=== PATIENT | male | born 1970 | race Caucasian/White ===

== ENCOUNTER 2019-08-05 18:00 | Emergency (ER) | payer OTHER ==
[2019-08-05 18:11] VITALS: BP 125/65
[2019-08-05] MEDS ORDERED: ALBUTEROL 1 PUFF INH STA (18:25)
--- NOTE | 2019-08-05 18:27 | ED Physician Documentation ---
History of Present Illness - Stated complaint Stated Complaint: FEVER, SOA - Chief complaint Chief Complaint: Resp - History obtained from History obtained from: Patient - History of Present Illness Timing: How many days ago (3) Pain level max: 0 Pain level now: 0 - Additonal information Additional information: 49-year-old male presents to the emergency department stating that he had a fever of 101 degrees on Tuesday. States he has had a mild dry cough. States he feels like he is having a harder time breathing. Smokes a pack per day. Has nasal congestion and rhinorrhea as well. No sore throat. Nothing makes it better or worse. He has not taken anything for this. Review of Systems Ten Systems: 10 systems reviewed and negative Constitutional: reports: Fever. denies: Chills Ears: denies: Ear pain Nose: reports: Rhinorrhea / runny nose, Congestion Throat: denies: Sore throat Cardiac: denies: Chest pain / pressure Respiratory: reports: Dyspnea, Cough, Wheezing GI: denies: Nausea, Vomiting, Diarrhea Skin: denies: Rash Musculoskeletal: denies: Neck pain, Back pain Neurologic: denies: Headache PD PAST MEDICAL HISTORY - Past Medical History Past Medical History: Yes Cardiovascular: Hypertension, High cholesterol Respiratory: None Neuro: None Endocrine/Autoimmune: None GI: None : None HEENT: None Psych: None Musculoskeletal: None Derm: None - Present Medications Home Medications: Ambulatory Orders Medication Instructions Recorded Confirmed Albuterol Sulf [Ventolin Hfa 1 - 2 puffs INH Q4HR PRN #1 inhaler 08/05/19 Inhaler] - Allergies Allergies/Adverse Reactions: Allergies Allergy/AdvReac Type Severity Reaction Status Date / Time Penicillins Allergy Unknown Verified 08/05/19 18:10 - Social History Does the pt smoke?: Yes Smoking Status: Current every day smoker - Immunizations Immunizations are current?: No - POLST Patient has POLST: No PD ED PE NORMAL - Vitals Vital signs reviewed: Yes - General General: Alert and oriented X 3, No acute distress, Well developed/nourished - HEENT HEENT: Moist mucous membranes - Neck Neck: Supple, no meningeal sign - Cardiac Cardiac: RRR - Respiratory Respiratory: No respiratory distress, Other (Rhonchi and wheezing bilaterally) - Abdomen Abdomen: Soft, Non tender, Non distended - Derm Derm: Warm and dry, No rash - Extremities Extremities: No edema, No calf tenderness / cord - Neuro Neuro: Alert and oriented X 3 - Psych Psych: Normal mood, Normal affect Results - Vitals Vitals: Vital Signs - 24 hr 08/05/19 18:06 Temperature 36.3 C L Heart Rate 100 Respiratory 18 Rate Blood Pressure 125/65 O2 Saturation 98 Oxygen O2 Source Room air - Rads (name of study) Chest x-ray Radiology: Prelim report reviewed, EMP read contemporaneously, See rad report (No acute disease) PD MEDICAL DECISION MAKING - ED course Complexity details: reviewed results, re-evaluated patient, considered differential, d/w patient ED course: Patient feels much better after albuterol. He is well-appearing, nontoxic. Afebrile. No hypoxia. No respiratory distress. Will prescribe albuterol for home. Coronavirus test was sent. Patient counseled regarding signs and symptoms for which I believe and urgent re-evaluation would be necessary. Patient with good understanding of and agreement to plan and is comfortable going home at this time This document was made in part using voice recognition software. While efforts are made to proofread this document, sound alike and grammatical errors may occur. Departure - Departure Disposition: 01 Home, Self Care Clinical Impression: Viral upper respiratory infection Condition: Good Instructions: ED Viral Syndrome Follow-Up: Your,doctor in 1 week [Other] Prescriptions: Albuterol Sulf [Ventolin Hfa Inhaler] 1 - 2 puffs INH Q4HR PRN #1 inhaler PRN Reason: Shortness Of Air/Wheezing Comments: Your x-ray does not show any acute abnormalities. Use the inhaler as needed at home. Return if you worsen. You were tested for coronavirus and this test should be back tomorrow or the next day. Do not return to work or school until your symptoms have subsided for at least 24 hours. cdc.gov/coronavirus/2019-ncov/community/tvwnmwuh-eaoqfhnw-gafauiqr.html Employers should not require a positive COVID-19 test result or a healthcare providers note for employees who are sick to validate their illness, qualify for sick leave, or to return to work. Healthcare provider offices and medical facilities may be extremely busy and not able to provide such documentation in a timely manner. Discharge Date/Time: 08/05/19 19:53
--- NOTE | 2019-08-05 18:56 | XRAY Report ---
Reason: cough Procedure Date: 08/05/2019 Accession Number: [id number] / [id number] Procedure: XR - Chest 1 View X-Ray CPT Code: 94251 Final Report FULL RESULT: EXAM: CHEST RADIOGRAPHY EXAM DATE: 08/05/2019 06:47 PM. CLINICAL HISTORY: Cough. COMPARISON: None. TECHNIQUE: 1 portable view. FINDINGS: Lungs/Pleura: No focal opacities evident. No pleural effusion. No pneumothorax. Mediastinum: Within exam limitations, the cardiomediastinal contour is normal. Other: None. IMPRESSION: Normal single view chest. RADIA
== END 2019-08-05 19:53 | disposition home or self-care (01) ==
LOC: ED 18:00
DX: J06.9 Acute upper respiratory infection, unspecified (principal); F17.200 Nicotine dependence, unspecified, uncomplicated; I10 Essential (primary) hypertension
CPT/HCPCS: 71045; 81599; 94640; 94664; 99282; 99283

== ENCOUNTER 2019-08-21 14:29 | Inpatient (IN) | payer OTHER ==
[2019-08-21 15:02] LABS: BASOPHILS % (AUTO) 0.7 %; EOSINOPHILS # (AUTO) 0.1 10^3/uL (0.0-0.7); HGB - HEMOGLOBIN 13.9 g/dL (14.0-18.0); LYMPHOCYTES # (AUTO) 1.7 10^3/uL (1.5-3.5); LYMPHOCYTES % (AUTO) 27.1 %; MEAN CORPUSCULAR HEMOGLOBIN 37.1 pg (27.0-31.0); MEAN CORPUSCULAR VOLUME 102.9 fL (80.0-94.0); MEAN PLATELET VOLUME 9.5 fL (7.4-11.4); MONOCYTES # (AUTO) 0.5 10^3/uL (0.0-1.0); MONOCYTES % (AUTO) 8.5 %; NEUTROPHILS # (AUTO) 3.8 10^3/uL (1.5-6.6); NEUTROPHILS % (AUTO) 61.2 %; PLT - PLATELET COUNT 141 10^3/uL (130-450); RED BLOOD COUNT 3.75 10^6/uL (4.70-6.10); RED CELL DISTRIBUTION WIDTH 13.1 % (12.0-15.0); WHITE BLOOD COUNT 6.1 x10^3/uL (4.8-10.8)
[2019-08-21] MEDS ORDERED: IOVERSOL 320 100 ML VIAL IVP ONE ×2 (15:12→15:58)
[2019-08-21 15:17] LABS: ALBUMIN 3.9 g/dL (3.2-5.5); ALBUMIN/GLOBULIN RATIO 1.1 (1.0-2.2); BILIRUBIN,TOTAL 1.3 mg/dL (0.2-1.0); CALCIUM 9.4 mg/dL (8.5-10.3); CREATININE 0.7 mg/dL (0.6-1.2); TOTAL PROTEIN 7.4 g/dL (6.7-8.2)
--- NOTE | 2019-08-21 15:54 | ED Physician Documentation ---
PD HPI OPHTHO - Stated complaint Stated Complaint: VISION LOSS LT EYE - Chief complaint Chief Complaint: Heent - History obtained from History obtained from: Patient - History of Present Illness Timing - onset: Enter time (1229), Today Timing - duration: Minutes Timing - details: Abrupt onset, Still present Location: Left Quality / character: Other (sudden onset painless vision loss.). 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 He relates he was not able to see normally out of that eye. He did not have any pain associated with this he did not have anything in his eye and he did not have any trauma to his eye. He try to continue working but found that this did not improve. He has now come to the emergency department for evaluation of acute monocular vision loss in the left eye that is painless and persistent. He has had some vision to the central portion of his eyesight that is limited. Review of Systems Constitutional: reports: Fever (resolved), Chills, Myalgias, Fatigue Eyes: reports: Loss of vision. denies: Discharge, Irritation Ears: denies: Ear pain Nose: denies: Rhinorrhea / runny nose, Congestion Throat: denies: Sore throat Cardiac: denies: Chest pain / pressure, Palpitations Respiratory: denies: Dyspnea, Cough GI: denies: Abdominal Pain, Nausea, Vomiting : denies: Dysuria, Frequency Skin: denies: Rash, Lesions, Abrasion (s) Musculoskeletal: denies: Neck pain, Back pain Neurologic: denies: Generalized weakness, Focal weakness, Numbness PD PAST MEDICAL HISTORY - Past Medical History Past Medical History: Yes Cardiovascular: Hypertension, High cholesterol Respiratory: None Neuro: None Endocrine/Autoimmune: None GI: None : None HEENT: None Psych: None Musculoskeletal: None Derm: None - Present Medications Home Medications: Ambulatory Orders Medication Instructions Recorded Confirmed Albuterol Sulf [Ventolin Hfa 1 - 2 puffs INH Q4HR PRN #1 inhaler 08/05/19 Inhaler] - Allergies Allergies/Adverse Reactions: Allergies Allergy/AdvReac Type Severity Reaction Status Date / Time Penicillins Allergy Unknown Verified 08/05/19 18:10 - Social History Does the pt smoke?: Yes Smoking Status: Current every day smoker - Immunizations Immunizations are current?: No - POLST Patient has POLST: No PD ED PE NORMAL - Vitals Vital signs reviewed: Yes (hypertensive ) - General General: Alert and oriented X 3, No acute distress, Well developed/nourished - HEENT HEENT: Atraumatic, EOMI, Other (The pupils are equal they are reactive to light the left pupil is reactive minimally to direct light the right eye is reactive briskly to light and the left eye constricts correspondingly.) - Neck Neck: Supple, no meningeal sign, No bony TTP - Cardiac Cardiac: RRR, No murmur - Respiratory Respiratory: No respiratory distress, Clear bilaterally - Abdomen Abdomen: Soft, Non tender - Back Back: No CVA TTP, No spinal TTP - Derm Derm: Normal color, Warm and dry, No rash - Extremities Extremities: No deformity, No edema, No calf tenderness / cord - Neuro Neuro: Alert and oriented X 3, No motor deficit, No sensory deficit, Normal speech Eye Opening: Spontaneous Motor: Obeys Commands Verbal: Oriented GCS Score: 15 - Psych Psych: Normal mood, Normal affect Results - Vitals Vitals: Vital Signs - 24 hr 08/21/19 08/21/19 08/21/19 14:31 14:44 15:05 Temperature 36.5 C 36.5 C Heart Rate 98 98 95 Respiratory 16 16 16 Rate Blood Pressure 159/112 H 159/112 H 142/112 H O2 Saturation 98 98 97 08/21/19 08/21/19 08/21/19 15:30 16:00 16:30 Temperature Heart Rate 93 92 88 Respiratory 16 21 16 Rate Blood Pressure 140/96 H 143/89 H 150/100 H O2 Saturation 98 96 98 08/21/19 08/21/19 08/21/19 17:00 17:30 18:00 Temperature Heart Rate 96 96 110 H Respiratory 16 16 16 Rate Blood Pressure 140/100 H 140/90 H 150/110 H O2 Saturation 98 98 98 08/21/19 08/21/19 18:22 18:30 Temperature Heart Rate 120 H Respiratory 16 Rate Blood Pressure 134/96 H 134/96 H O2 Saturation 97 Oxygen O2 Source Room air - EKG (time done) 1457 Rate: Rate (enter#) (101) Rhythm: Sinus tachycardia [place]: LAD Compare to prior EKG: Old EKG unavailable Computer interpretation: Agree with computer - Labs Labs: Laboratory Tests 08/21/19 08/21/19 08/21/19 14:55 14:55 14:55 WBC 6.1 RBC 3.75 L Hgb 13.9 L Hct 38.6 L MCV 102.9 H MCH 37.1 H MCHC 36.0 RDW 13.1 Plt Count 141 MPV 9.5 Neut # (Auto) 3.8 Lymph # (Auto) 1.7 [place] # (Auto) 0.5 Eos # (Auto) 0.1 Baso # (Auto) 0.0 Absolute Nucleated RBC 0.00 Nucleated RBC % 0.0 ESR 36 H Sodium 134 L Potassium 2.9 L Chloride 97 L Carbon Dioxide 25 Anion Gap 12.0 BUN 8 Creatinine 0.7 Estimated GFR (MDRD) 119 Glucose 117 H Calcium 9.4 Total Bilirubin 1.3 H AST 55 H ALT 42 Alkaline Phosphatase 71 C-Reactive Protein Total Protein 7.4 Albumin 3.9 Globulin 3.5 Albumin/Globulin Ratio 1.1 Lipase 41 Urine Color Urine Clarity Urine pH Ur Specific [place] Urine Protein Urine Glucose (UA) Urine Ketones Urine Occult Blood Urine Nitrite Urine Bilirubin Urine Urobilinogen Ur Leukocyte Esterase Ur Microscopic Review Urine Culture Comments Urine Opiates Screen Ur Oxycodone Screen Urine Methadone Screen Ur Propoxyphene Screen Ur Barbiturates Screen Ur Tricyclics Screen Ur Phencyclidine Scrn Ur Amphetamine Screen U Methamphetamines Scrn U Benzodiazepines Scrn Urine Cocaine Screen U Cannabinoids Screen 08/21/19 08/21/19 14:55 17:53 WBC RBC Hgb Hct MCV MCH MCHC RDW Plt Count MPV Neut # (Auto) Lymph # (Auto) [place] # (Auto) Eos # (Auto) Baso # (Auto) Absolute Nucleated RBC Nucleated RBC % ESR Sodium Potassium Chloride Carbon Dioxide Anion Gap BUN Creatinine Estimated GFR (MDRD) Glucose Calcium Total Bilirubin AST ALT Alkaline Phosphatase C-Reactive Protein 2.0 H Total Protein Albumin Globulin Albumin/Globulin Ratio Lipase Urine Color YELLOW Urine Clarity CLEAR Urine pH 6.0 Ur Specific [place] 1.015 Urine Protein TRACE Urine Glucose (UA) NEGATIVE Urine Ketones NEGATIVE Urine Occult Blood NEGATIVE Urine Nitrite NEGATIVE Urine Bilirubin NEGATIVE Urine Urobilinogen 0.2 (NORMAL) Ur Leukocyte Esterase NEGATIVE Ur Microscopic Review NOT INDICATED Urine Culture Comments NOT INDICATED Urine Opiates Screen NEGATIVE Ur Oxycodone Screen NEGATIVE Urine Methadone Screen NEGATIVE Ur Propoxyphene Screen NEGATIVE Ur Barbiturates Screen NEGATIVE Ur Tricyclics Screen NEGATIVE Ur Phencyclidine Scrn NEGATIVE Ur Amphetamine Screen NEGATIVE U Methamphetamines Scrn NEGATIVE U Benzodiazepines Scrn NEGATIVE Urine Cocaine Screen NEGATIVE U Cannabinoids Screen NEGATIVE - Rads (name of study) Neck CTA Radiology: Prelim report reviewed (Impression: CT angiogram neck: 1. There is a 50% stenosis in the proximal cervical ICA on the left. There is less than 50% stenosis involving the proximal cervical ICA on the right. Visualized cervical vertebral arteries demonstrate no significant stenosis. Other degenerative changes are seen in the spine, greatest in the cervical spine at C6-7 where there is bilateral foraminal stenosis.), EMP read indepedently, See rad report CTA HEAD Radiology: Prelim report reviewed (Impression: CT scan head: 1. Normal CT scan of the head. CT angiogram head: 1. No significant intracranial stenosis is present. 2. No saccular aneurysm.), EMP read indepedently, See rad report Procedures - Bedside sono Bedside sono by EMP: With use of bedside ultrasound the left eye is imaged there is no evidence of retinal detachment. PD MEDICAL DECISION MAKING - ED course Complexity details: reviewed old records, reviewed results, re-evaluated patient, considered differential, d/w patient, d/w interventional sale consultant (Dr. Howe opthamology window of opportunity is first 90 minutes. After this stroke work up is indicated and visual loss is permanent. ) ED course: 49-year-old male with sudden painless visual loss in the right eye appears to gardner ve central retinal artery occlusion. He does not have any evidence of retinal detachment on bedside ultrasound examination. He has minimal atherosclerotic disease in the carotid arteries. He is at risk for stroke and further embolization and complete stroke work-up is indicated. Departure - Departure Disposition: ED Place in Observation Clinical Impression: CRAO (central retinal artery occlusion) Qualifiers: Laterality: left Qualified Code(s): H34.12 - Central retinal artery occlusion, left eye Condition: Stable Discharge Date/Time: 08/21/19 19:44
--- NOTE | 2019-08-21 16:46 | CT Report ---
Reason: monoocular vision loss Procedure Date: 08/21/2019 Accession Number: [id number] / [id number] Procedure: CT - ANGIO NECK W CPT Code: Final Report FULL RESULT: EXAM: CT ANGIOGRAM HEAD AND NECK. EXAM DATE: 08/21/2019 03:22 PM. CLINICAL HISTORY: Monocular vision loss. COMPARISON: ANGIO HEAD W/WO 08/21/2019 3:10 PM. TECHNIQUE: Routine axial helical CTA imaging was performed from the aortic arch through the [place]. reconstructions: Routine multiplanar 3D MIP reconstructions. IV contrast: ISOVUE 370. NASCET Criteria are used for stenosis measurements. In accordance with CT protocol optimization, one or more of the following dose reduction techniques were utilized for this exam: automated exposure control, adjustment of mA and/or KV based on patient size, or use of iterative reconstructive technique. FINDINGS: CT ANGIOGRAM EXTRACRANIAL CIRCULATION: Atherosclerotic plaque is seen in the transverse thoracic aorta in the region of the origin of the left CCA and left subclavian artery. No significant great vessel origin stenosis is present. Right Carotid: Mild atherosclerotic plaque is seen in the CCA and proximal cervical ICA without significant cervical ICA narrowing present. Left Carotid: Mild to moderate CC atherosclerotic plaque is seen. Moderate atherosclerotic plaque is seen in the proximal cervical ICA. There is up to 50% stenosis of the proximal cervical ICA. There appears to be some degree of ulcerated atherosclerotic plaque. Vertebrals: Artifact limits assessment of the proximal vertebral arteries bilaterally. The cervical vertebral artery is patent bilaterally. The left vertebral artery is dominant. CT ANGIOGRAM INTRACRANIAL CIRCULATION: The reader is referred to the CT angiogram of the head performed in conjunction with the CT of the neck today and dictated under separate cover Other: No mass is present in the nasopharynx. No mass is present in either parotid gland or submandibular gland. No bulky lymphadenopathy is seen in the neck or visualized upper mediastinum. No mass is seen in the floor of mouth. No subglottic stenosis is present. No suspicious spiculated mass is seen in either lung apex. Degenerative disk disease and osteophyte formation are seen at scattered levels in the spine, greatest in the cervical spine at C6-C7. There is bilateral foraminal stenosis at C6-C7 IMPRESSION: CT ANGIOGRAM NECK: 1. There is a 50% stenosis in the proximal cervical ICA on the left. 2. There is a less than 50% stenosis involving the proximal cervical ICA on the right. 3. Visualized cervical vertebral arteries demonstrate no significant stenosis. OTHER: 1. Degenerative change is seen in the spine, greatest in the cervical spine at C6-C7 where there is bilateral foraminal stenosis. RADIA
[2019-08-21 18:06] LABS: MUDS CUTOFF CONCENTRATIONS CUTOFF CONC BELOW:
[2019-08-21 18:08] LABS: BILIRUBIN,URINE NEGATIVE (NEGATIVE); GLUCOSE, URINE (UA) NEGATIVE (NEGATIVE); KETONES,URINE (UA) NEGATIVE (NEGATIVE); LEUKOCYTE ESTERASE, URINE NEGATIVE (NEGATIVE); NITRITE,URINE NEGATIVE (NEGATIVE); OCCULT BLOOD,URINE NEGATIVE (NEGATIVE); PROTEIN,URINE TRACE mg/dL (NEGATIVE); UROBILINOGEN,URINE 0.2 (NORMAL) E.U./dL (NORMAL)
--- NOTE | 2019-08-21 18:21 | CT Report ---
Reason: L monoocular vision loss painless Procedure Date: 08/21/2019 Accession Number: [id number] / [id number] Procedure: CT - ANGIO HEAD W/WO CPT Code: Final Report FULL RESULT: EXAM: CT ANGIOGRAM HEAD CT SCAN HEAD WITHOUT AND WITH CONTRAST. EXAM DATE: 08/21/2019 03:22 PM. CLINICAL HISTORY: Left monocular vision loss painless. COMPARISON: CT angiogram neck from today. TECHNIQUE: Routine axial helical CTA imaging was performed through the [place]. Routine axial CT imaging of the head was performed prior to and following contrast administration. Reconstructions: Routine multiplanar 3D MIP reconstructions. IV contrast: 80 cc OPTIRAY 320. NASCET Criteria are used for stenosis measurements. In accordance with CT protocol optimization, one or more of the following dose reduction techniques were utilized for this exam: automated exposure control, adjustment of mA and/or KV based on patient size, or use of iterative reconstructive technique. FINDINGS: CT SCAN HEAD: Age-appropriate prominence of the ventricles and sulci is noted. No extra-axial fluid collection is present. No enhancing mass is identified. Watts-white matter differentiation is preserved. No intracranial hemorrhage is present. There is no extra-axial fluid collection. The calvarium is intact. Mastoid air cells are well aerated. CT ANGIOGRAM INTRACRANIAL CIRCULATION: No filling defect, high-grade stenosis, or occlusion is present in the proximal aspect of the major intracranial vessels. There is a posterior communicating artery bilaterally with a hypoplastic P1 segment to each RESIDENTIAL AIDE. No saccular outpouching of contrast is present to suggest an aneurysm. Expected enhancement is present in the major dural venous sinuses. Atherosclerotic plaque is seen in the cavernous ICA bilaterally without significant narrowing present. Other: No mass is present in either orbit. IMPRESSION: CT SCAN HEAD: 1. Normal CT scan of the head. CT ANGIOGRAM HEAD: 1. No significant intracranial stenosis is present. 2. No saccular aneurysm. RADIA
[2019-08-21 18:24] LABS: AMPHETAMINE SCREEN,URINE NEGATIVE (NEGATIVE); BENZODIAZEPINES SCREEN, URINE NEGATIVE (NEGATIVE); CLARITY,URINE CLEAR (CLEAR); COCAINE SCREEN URINE NEGATIVE (NEGATIVE); METHADONE SCREEN, URINE NEGATIVE (NEGATIVE); METHAMPHETAMINES SCREEN, URINE NEGATIVE (NEGATIVE); OPIATE SCREEN, URINE NEGATIVE (NEGATIVE); OXYCODONE SCREEN, URINE NEGATIVE (NEGATIVE); PROPOXYPHENE SCREEN, URINE NEGATIVE (NEGATIVE); TRICYCLIC ANTIDEPRESSANT,URINE NEGATIVE (NEGATIVE)
[2019-08-21] MEDS ORDERED: SODIUM CHLORIDE FLUSH 0.9% 10 ML SYRINGE IVP PRN (19:14)
--- NOTE | 2019-08-21 19:26 | HISTORY & PHYSICAL EXAMINATION ---
Chief Complaint - Chief Complaint Chief Complaint: left eye vision loss History of Present Illness - Admitted From Admitted From:: [facility] ED - History Obtained From Records Reviewed: yes History obtained from: patient - History of Present Illness HPI Comment/Other: Patient is a 49-year-old male who presented to the ED with complaint of sudden left vision loss. This happened around 1:30 PM today Aug 21 2019. He was at work at the time of onset. He operates [employer]. He denied dizziness, lightheadedness or headaches. He denies any previous history of this symptoms. Currently he denies chest pain, dyspnea, abdominal pain, nausea, vomiting, fever or chills. He denies weakness in any of his extremities. He reports a history of difficulty breathing, coughing, body aches and questionable fever 2 weeks ago. He was tested for COVID 19 on 08/05/2019 at [facility] ED which was negative. He states that his symptoms lasted for a week. Work-up in the ED so far has included CT of the brain without contrast. This is unremarkable. However the patient's symptom of left I vision loss persist. As a result he is being admitted for further work-up. History - Past Medical History Cardiovascular: reports: Hypertension, High cholesterol Respiratory: reports: None Neuro: reports: None Endocrine/Autoimmune: reports: None GI: reports: None : reports: None HEENT: reports: None Psych: reports: None Musculoskeletal: reports: None Derm: reports: None MRSA Hx?: No - Past Surgical History Ortho: reports: Other (right knee meniscal repair X3) - Family & Social History Family History Comment/Other: Patient denied any significant family history Social History Notes: Patient smokes 1 pack/day of cigarettes. He has been smoking for 25+ years. He drinks alcohol occasionally. He denies any illicit drug use. Patient lives alone. - POLST Patient has POLST: No POLST Status: Full Code Meds/Allgy - Home Medications Home Medications: Ambulatory Orders Medication Instructions Recorded Confirmed Albuterol Sulf [Ventolin Hfa 1 - 2 puffs INH Q4HR PRN #1 inhaler 08/05/19 Inhaler] - Allergies Allergies/Adverse Reactions: Allergies Allergy/AdvReac Type Severity Reaction Status Date / Time Penicillins Allergy Unknown Verified 08/05/19 18:10 Review of Systems - Constitutional Constitutional: denies: Fatigue, Fever, Chills, Malaise, Weakness - Eyes Eyes: reports: Vision loss (left eye). denies: Pain, Blurred vision - Ears, Nose & Throat Ears, Nose & Throat: denies: Vertigo, Sore throat - Cardiovascular Cariovascular: denies: Irregular heart rate, Palpitations, Chest pain, Edema, Lightheadedness, Syncope - Respiratory Respiratory: denies: Cough, Sputum production, Wheezing, SOB at rest, SOB with exertion - Gastrointestinal Gastrointestinal: denies: Abdominal pain, Abdominal distention, Constipation, Diarrhea, Nausea, Vomiting - Genitourinary Genitourinary: denies: Dysuria, Frequency, Urgency, Hematuria - Musculoskeletal Musculoskeletal: denies: Muscle pain, Back pain, Muscle aches, Stiffness - Integumentary Integumentary: denies: Rash, Pruritis, Lesions - Neurological Neurological: denies: General weakness, Headache, Dizziness - Psychiatric Psychiatric: denies: Depression, Anxiety - Endocrine Endocrine: denies: Polyuria, Polydypsia - Hematologic/Lymphatic Hematologic/Lymphatic: denies: Anemia, Bruising Prior Level of Functionality: Patient is independent of activities of daily living. Exam - Vital Signs Vital Signs: Vital Signs x48h Temp Pulse Resp BP Pulse Ox 08/21/19 19:00 98 12 141/91 H 98 08/21/19 18:30 120 H 16 134/96 H 97 08/21/19 18:22 134/96 H 08/21/19 18:00 110 H 16 150/110 H 98 08/21/19 17:30 96 16 140/90 H 98 08/21/19 17:00 96 16 140/100 H 98 08/21/19 16:30 88 16 150/100 H 98 08/21/19 16:00 92 21 143/89 H 96 08/21/19 15:30 93 16 140/96 H 98 08/21/19 15:05 95 16 142/112 H 97 08/21/19 14:44 36.5 C 98 16 159/112 H 98 08/21/19 14:31 36.5 C 98 16 159/112 H 98 - Physical Exam General Appearance: positive: No acute distress, Alert Eyes Bilateral: positive: PERRL, EOMI ENT: positive: Pharynx nml, No signs of dehydration Neck: positive: No JVD, Trachea midline Respiratory: positive: Chest non-tender, No respiratory distress, Breath sounds nml. negative: Wheezes, Rales, Rhonchi Cardiovascular: positive: Regular rate & rhythm, No murmur Abdomen: positive: Non-tender, No organomegaly, Nml bowel sounds, No distention. negative: Guarding, Rebound Back: positive: Nml inspection Skin: positive: Color nml, No rash, Warm, Dry Extremities: positive: Non-tender, Full ROM, No pedal edema Neurologic/Psychiatric: positive: Oriented x3, Mood/affect nml, Other (left vision loss) Conclusion/Plan - Problem List (1) Sudden visual loss of left eye Conclusion/Plan: CVA suspected. In light of recent viral symptoms cannot rule out COVID-19 as possible cont ributing factor. COVID-19 testing pending MRI of the brain ordered. 2D echo ordered. We will check lipid panel and hemoglobin A1c in the a.m. Patient given aspirin. We will allow permissive hypertension. (2) Hypertension Conclusion/Plan: Will allow permissive hypertension for now in light of suspected CVA Will treat if systolic blood pressure greater than 180 (3) Hypokalemia Conclusion/Plan: Will replace and recheck in the a.m. We will also check magnesium level and replace accordingly - Lab Results Fish Bones: 08/21/19 14:55 08/21/19 19:29 Core Measures - Anticipated LOS I expect patient to be DC'd or transferred within 96 hours.: Yes - DVT/VTE - Prophylaxis VTE/DVT Device ordered at admit?: Yes
[2019-08-21 19:47] LABS: ALBUMIN 4.3 g/dL (3.2-5.5); ALBUMIN/GLOBULIN RATIO 1.1 (1.0-2.2); BILIRUBIN,TOTAL 1.6 mg/dL (0.2-1.0); CALCIUM 9.6 mg/dL (8.5-10.3); CREATININE 0.7 mg/dL (0.6-1.2); TOTAL PROTEIN 8.1 g/dL (6.7-8.2)
[2019-08-21] MEDS: SODIUM CHLORIDE 0.9% 1,000 ML IV SCH (20:06)
[2019-08-21] MEDS ORDERED: POTASSIUM CHLORIDE 20 MEQ TABLET PO STA (23:49)
[2019-08-22] MEDS: SODIUM CHLORIDE FLUSH 0.9% 10 ML SYRINGE IVP SCH ×3 (00:29→17:00)
--- NOTE | 2019-08-22 02:41 | Ultrasound Report ---
Reason: CVA work up. left eye vision loss Procedure Date: 08/21/2019 Accession Number: [id number] / [id number] Procedure: US - Carotid Doppler Complete CPT Code: Final Report FULL RESULT: EXAM: BILATERAL CAROTID AND VERTEBRAL ARTERY DUPLEX DOPPLER ULTRASOUND: EXAM DATE: 08/21/2019 11:38 PM CLINICAL HISTORY: CVA workup. Left eye vision loss. COMPARISON: None. TECHNIQUE: Grayscale imaging, color Doppler, and duplex spectral Doppler were used to evaluate the carotid and vertebral arteries bilaterally. Static images were obtained. FINDINGS: Left greater than right calcified plaquing, moderate on the left and mild on the right. Normal antegrade flow is present in bilateral vertebral arteries. VELOCITIES (cm/s): Right CCA mid: PSV 113 cm/s CCA dist: PSV 62 cm/s ICA prox: PSV 65 cm/s, EDV 28 cm/s ICA mid: PSV 72 cm/s, EDV 29 cm/s ICA dist: PSV 84 cm/s, EDV 37 cm/s ECA: PSV 81 cm/s Vert: PSV 41 cm/s ICA/CCA: 0.74 Left CCA mid: PSV 75 cm/s CCA dist: PSV 77 cm/s ICA prox: PSV 99 cm/s, EDV 50 cm/s ICA mid: PSV 90 cm/s, EDV 42 cm/s ICA dist: PSV 51 cm/s, EDV 25 cm/s ECA: PSV 86 cm/s Vert: PSV 50 cm/s ICA/CCA: 1.29 ICA diameter stenosis: Right: <50% by velocity and <70% by NASCET criteria. Left: <50% by velocity and <70% by NASCET criteria. IMPRESSION: 1. Moderate left and mild right calcified carotid artery plaquing. 2. In the right carotid artery there are no elevated carotid artery velocities to suggest hemodynamically significant stenosis. 3. In the left carotid artery there are no elevated carotid artery velocities to suggest hemodynamically significant stenosis. 4. Normal antegrade flow is present in bilateral vertebral arteries. General Recommendations: Stenosis =50% ICA - Follow-up ultrasound 6-12 months Stenosis <50% ICA - High Risk Patient with plaque - Follow-up ultrasound 1-2 years Normal Study but High Risk Patient - Follow-up ultrasound 3-5 years Management recommendations and diagnostic criteria are based on current IAC endorsed standards in Carotid Artery Stenosis: Grayscale and Doppler Ultrasound Diagnosis. Validated velocity measurements with angiographic measurements and velocity criteria are extrapolated from diameter data as defined by the Society of Radiologists in Ultrasound Consensus Conference Radiology 2003; 229;340-346. RADIA
[2019-08-22] MEDS: SODIUM CHLORIDE 0.9% 1,000 ML IV SCH ×2 (05:31→15:45)
[2019-08-22 05:43] LABS: BASOPHILS # (AUTO) 0.1 10^3/uL (0.0-0.1); EOSINOPHILS # (AUTO) 0.2 10^3/uL (0.0-0.7); EOSINOPHILS % (AUTO) 3.4 %; HGB - HEMOGLOBIN 13.5 g/dL (14.0-18.0); LYMPHOCYTES # (AUTO) 2.1 10^3/uL (1.5-3.5); LYMPHOCYTES % (AUTO) 36.6 %; MEAN CORPUSCULAR HEMOGLOBIN 36.5 pg (27.0-31.0); MEAN CORPUSCULAR VOLUME 104.3 fL (80.0-94.0); MEAN PLATELET VOLUME 9.6 fL (7.4-11.4); MONOCYTES # (AUTO) 0.4 10^3/uL (0.0-1.0); MONOCYTES % (AUTO) 7.2 %; NEUTROPHILS % (AUTO) 51.3 %; PLT - PLATELET COUNT 139 10^3/uL (130-450); RED CELL DISTRIBUTION WIDTH 13.2 % (12.0-15.0); WHITE BLOOD COUNT 5.8 x10^3/uL (4.8-10.8)
[2019-08-22 05:55] LABS: CALCIUM 9.2 mg/dL (8.5-10.3); CREATININE 0.8 mg/dL (0.6-1.2)
[2019-08-22 06:01] LABS: HB2 TOTAL 14.1 g/dL; HEMOGLOBIN A1C 0.51 g/dL; HEMOGLOBIN A1C % 5.5 % (4.6-6.2)
[2019-08-22 06:03] LABS: CHOL/HDL RATIO 8.4 (<5.0); CHOLESTEROL 310 mg/dL; HDL CHOLESTEROL 37 mg/dL
[2019-08-22 06:22] LABS: LDL CHOLESTEROL,DIRECT 146 mg/dL; LDLD/HDL RATIO 3.9 (<3.6)
[2019-08-22] MEDS ORDERED: PANTOPRAZOLE 40 MG TABLET PO SCH (07:00)
[2019-08-22] MEDS ORDERED: ASPIRIN 325 MG TABLET PO SCH (08:00)
[2019-08-22] MEDS ORDERED: FENOFIBRATE 48 MG TABLET PO SCH ×2 (09:00)
[2019-08-22] MEDS ORDERED: NICOTINE 7 MG PATCH TOP SCH (09:00)
[2019-08-22] MEDS ORDERED: ASPIRIN EC 81 MG TABLET PO SCH (09:00)
--- NOTE | 2019-08-22 11:32 | PHARMACY PROGRESS NOTE ---
- Best Possible Medication History Admit Date and Time: 08/21/19 1840 Processed by: Pharmacy Medication History completed: Yes Patient Interview: Pt unable to participate Secondary Source(s): Pharmacy records, Insurance records As the person ultimately responsible for medication therapy, providers are able to order a medication from an existing home medication list in [facility] via the "Reconcile Routine" prior to Confirmation of that medication by air support operations operator. Such practice is discouraged except when the physician, in their clinical judgment, deems that a medical need exists for a medication without regard to previous use.
[2019-08-22] MEDS ORDERED: CARBOXYMETHYLCELLULOSE OPHTH DROPS LEFTEYE PRN (15:08)
--- NOTE | 2019-08-22 19:31 | MRI Report ---
Reason: left eye vision loss Procedure Date: 08/22/2019 Accession Number: [id number] / [id number] Procedure: MRI - Brain W/O CPT Code: Addended Final Report FULL RESULT: EXAM: MRI BRAIN WITHOUT CONTRAST EXAM DATE: 08/22/2019 06:11 PM. CLINICAL HISTORY: 49-year-old male. Left eye vision loss. COMPARISON: ANGIO HEAD W/WO 08/21/2019 3:10 PM. TECHNIQUE: Multiplanar, multisequence T1-weighted and fluid-sensitive MR sequences of the brain were performed. Sequences optimized for routine evaluation. Other: None. IV Contrast: None. FINDINGS: Brain Volume: Normal for age. Parenchyma/Dura: As evidenced by restricted diffusion and FLAIR signal abnormality, several small acute infarctions are seen, the largest of which is in the left thalamus measuring 13 mm (series 505 image 112). Scattered punctate infarcts left parietal lobe (series 505 images 152 through 176). Acute infarcts left occipital lobe measuring 8 mm (series 505 image 80) and 4 mm (series 505 image 136). Punctate acute infarct cerebellar vermis (series 505 image 64) No mass or acute hemorrhage. No significant T2/FLAIR hyperintense white matter disease burden. Ventricles/Cisterns: No hydrocephalus. No abnormal extra-axial fluid collection or hemorrhage. Orbits: Symmetric and unremarkable. Sella Turcica: The pituitary gland, cavernous sinuses, suprasellar cistern and optic chiasm are unremarkable. IAC: Symmetric and unremarkable. Vasculature: Normal signal flow void is seen in the major arterial structures at the skull base. Sinuses: No acute appearing sinus disease. Bones: No focal pathologic appearing marrow signal changes. Other: None. IMPRESSION: 1. Several small acute infarctions are seen, the largest of which is in the left thalamus measuring 13 mm (series 505 image 112). Other infarctions include: Scattered punctate infarcts left parietal lobe (series 505 images 152 through 176); left occipital lobe measuring 8 mm (series 505 image 80) and 4 mm (series 505 image 136); and punctate acute infarct cerebellar vermis (series 505 image 64) 2. No mass or acute hemorrhage. RADIA The call report notification system was initiated by Dr. Golden Cade at 07:27 PM on 08/22/2019. ADDENDUM: 08/22/19 19:37 The above call report findings were discussed with [facility] by Dr. Golden Cade at 07:37 PM on 08/22/2019.
--- NOTE | 2019-08-22 20:06 | DISCHARGE SUMMARY ---
Discharge Summary Admit Date: 08/21/19 Discharge Date: 08/22/19 Discharging Provider: Matthias Catherine Condition at Discharge: Stable Discharge Disposition: 01 Home, Self Care - DIAGNOSES Admission Diagnoses: 1. Sudden visual loss of left eye 2. Hypertension 3. Hypokalemia Discharge Diagnoses with Status of Each Condition: 1. Ischemic CVA : Slight improvement 2. Sudden visual loss of the left eye: Slight improvement 3. Hyperlipidemia: Ongoing 4. Hypertension: Ongoing 5. Hypokalemia: Resolved - HPI History of Present Illness: Patient is a 49-year-old male who presented to the ED with complaint of sudden left vision loss. This happened around 1:30 PM today Aug 21 2019. He was at work at the time of onset. 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 He denied dizziness, lightheadedness or headaches. He denies any previous history of this symptoms. Currently he denies chest pain, dyspnea, abdominal pain, nausea, vomiting, fever or chills. He denies weakness in any of his extremities. He reports a history of difficulty breathing, coughing, body aches and questionable fever 2 weeks ago. He was tested for COVID 19 on 08/05/2019 at [facility] which was negative. He states that his symptoms lasted for a week. Work-up in the ED so far has included CT of the brain without contrast. This is unremarkable. However the patient's symptom of left I vision loss persist. As a result he is being admitted for further work-up. - HOSPITAL COURSE Hospital Course: Patient was admitted with neurochecks done every shift. Patient's overnight stay was unremarkable. By the time of discharge he reported that there was some slight improvement in the vision in his left eye. However he was still exper iencing some dark lines in his left eye vision. His work-up in the hospital Included the following: Triglyceride 700, cholesterol 310, LDL 146, HDL 37 Hemoglobin A1c 5.5 COVID-19 testing was negative 2D echo showed left ventricular size is normal. There was mild to moderate concentric left ventricular hypertrophy. Over left ventricular systolic function is normal with an ejection fraction of 60 to 65%. Diastolic function indeterminate. There was no regional wall motion abnormality noted. MRI of brain without contrast showed several small acute infarctions the largest of which is in the left thalamus measuring 13 mm other infections included: Scattered punctate infarcts in the left parietal lobe. Left occipital lobe measuring 8 mm and punctate acute infarct cerebellar vermis. There was no mass or acute hemorrhage. Carotid Doppler showed 1 moderate left and mild right calcified carotid artery plaquing. 2 in the right carotid artery there are no elevated carotid artery velocities to suggest hemodynamically significant stenosis. 3 3 in the left carotid artery there are no elevated carotid artery velocities to suggest hemodynamically significant stenosis. 4 normal antegrade flow is present in bilateral vertebral arteries. General recommendations: Stenosis equal to 50% ICAfollow-up ultrasound in 6 to 12 months Stenosis less than 50% ICAhigh risk patient with plaque follow-up ultrasound 1 to 2 years Normal study but high risk patient follow-up ultrasound in 3 to 5 years Patient was started on a baby aspirin daily. Patient was started on atorvastatin 80 mg p.o. nightly Patient was started on lisinopril/HCTZ 10/12.5 mg tablets to take 1 tablet p.o. daily. Patient was educated on lifestyle modifications to include eating foods low in fat and sodium. Eating more fruits and vegetables. Patient was taken coverage to exercise 3 times weekly for 30 minutes and given examples of what exercising would entail specifically a brisk walk of about 3 to 3-1/2/h speed for half an hour. Patient was encouraged to quit smoking. 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 The importance of this was emphasized and the concern about safety for himself and others was highlighted. Patient expressed understanding and was in agreement with the above. - ALLERGIES Allergies/Adverse Reactions: Allergies Allergy/AdvReac Type Severity Reaction Status Date / Time Penicillins Allergy Unknown Verified 08/05/19 18:10 - MEDICATIONS Home Medications: Ambulatory Orders Medication Instructions Recorded Confirmed Albuterol Sulf [Ventolin Hfa 1 - 2 puffs INH Q4HR PRN #1 inhaler 08/05/19 08/22/19 Inhaler] Aspirin [Adult Aspirin Regimen] 81 mg PO DAILY #30 tablet. 08/22/19 Atorvastatin Calcium 80 mg PO DAILY PM #30 tablet 08/22/19 Lisinopril/Hydrochlorothiazide 1 each PO DAILY #1 tablet 08/22/19 [Lisinopril-Hctz 10-12.5 mg Tab] - PHYSICAL EXAM AT DISCHARGE General Appearance: positive: No acute distress, Alert Eyes Bilateral: positive: PERRL, EOMI ENT: positive: ENT inspection nml, No signs of dehydration Neck: positive: No JVD, Trachea midline Respiratory: positive: Chest non-tender, No respiratory distress, Breath sounds nml. negative: Wheezes, Rales, Rhonchi Cardiovascular: positive: Regular rate & rhythm, No murmur Abdomen: positive: Non-tender, No organomegaly, Nml bowel sounds, No distention. negative: Guarding Back: positive: Nml inspection Skin: positive: Color nml, Warm, Dry Extremities: positive: Non-tender, Full ROM, Nml appearance Neurologic/Psychiatric: positive: Oriented x3, Sensation nml, Mood/affect nml - LABS Result Diagrams: 08/22/19 05:20 08/22/19 05:20 - TIME SPENT Time Spent in Discharge (Minutes): 35
--- NOTE | 2019-08-22 20:14 | Discharge Plan ---
Discharge Plan Problem Reviewed?: Yes Disposition: 01 Home, Self Care Condition: Stable Diet: Cardiac Activity Restrictions: No Restrictions Shower Restrictions: No Driving Restrictions: No Health Concerns: CVA:. He presented to the hospital after acute loss of vision in the left eye. Work-up in the hospital has included CT scan of your brain, CT angiogram of the head and neck, carotid ultrasound and subsequently an MRI. You also had lipid panel done, hemoglobin A1c checked. Your triglyceride level was found to be 700. Your cholesterol level is 310. Your LDL is 146 HDL is 37. The MRI of your brain showed several small acute infarctions. The carotid ultrasounds showed moderate left and mild right calcified carotid artery plaquing. There was less than 50% stenosis.This indicates high risk and recommendation is for a follow-up ultrasound in 1 to 2 years. As a result of the stroke you will be started on the following medications 1 atorvastatin 80 mg nightly. A baby aspirin daily. Lisinopril/hydrochlorothiazide 10 mg / 12.5 mg tablet. You take 1 tablet by mouth daily. He will follow-up with you primary care physician within 7 business days of discharge. It is expected that your primary care physician will continue managing your medical condition. You have been advised to modify your diet. To start eating low-fat diet and foods low in sodium. You have been advised to increase your physical activity At least 30 minutes of increased activity 3 times a week You have also been advised to quit smoking Plan of Treatment: CVA:. He presented to the hospital after acute loss of vision in the left eye. Work-up in the hospital has included CT scan of your brain, CT angiogram of the head and neck, carotid ultrasound and subsequently an MRI. You also had lipid panel done, hemoglobin A1c checked. Your triglyceride level was found to be 700. Your cholesterol level is 310. Your LDL is 146 HDL is 37. The MRI of your brain showed several small acute infarctions. The carotid ultrasounds showed moderate left and mild right calcified carotid artery plaquing. There was less than 50% stenosis.This indicates high risk and recommendation is for a follow-up ultrasound in 1 to 2 years. As a result of the stroke you will be started on the following medications 1 atorvastatin 80 mg nightly. A baby aspirin daily. Lisinopril/hydrochlorothiazide 10 mg / 12.5 mg tablet. You take 1 tablet by mouth daily. He will follow-up with you primary care physician within 7 business days of discharge. It is expected that your primary care physician will continue managing your medical condition. You have been advised to modify your diet. To start eating low-fat diet and foods low in sodium. You have been advised to increase your physical activity At least 30 minutes of increased activity 3 times a week You have also been advised to quit smoking Care Goals: CVA:. He presented to the hospital after acute loss of vision in the left eye. Work-up in the hospital has included CT scan of your brain, CT angiogram of the head and neck, carotid ultrasound and subsequently an MRI. You also had lipid panel done, hemoglobin A1c checked. Your triglyceride level was found to be 700. Your cholesterol level is 310. Your LDL is 146 HDL is 37. The MRI of your brain showed several small acute infarctions. The carotid ultrasounds showed moderate left and mild right calcified carotid artery plaquing. There was less than 50% stenosis.This indicates high risk and recommendation is for a follow-up ultrasound in 1 to 2 years. As a result of the stroke you will be started on the following medications 1 atorvastatin 80 mg nightly. A baby aspirin daily. Lisinopril/hydrochlorothiazide 10 mg / 12.5 mg tablet. You take 1 tablet by mouth daily. He will follow-up with you primary care physician within 7 business days of discharge. It is expected that your primary care physician will continue managing your medical condition. You have been advised to modify your diet. To start eating low-fat diet and foods low in sodium. You have been advised to increase your physical activity At least 30 minutes of increased activity 3 times a week You have also been advised to quit smoking Assessment: The patient expressed understanding after the above was explained to him. No Smoking: If you smoke, Please STOP! Call for help.
[2019-08-22] MEDS ORDERED: ATORVASTATIN 40 MG TABLET PO SCH (21:00)
[2019-08-22 21:12] VITALS: BP 154/91
== END 2019-08-22 21:24 | disposition home or self-care (01) | DRG 66 ==
LOC: ED 14:29 → MS2 18:40
PROVIDERS: ADMIT Internal Medicine; ATTEND Internal Medicine
DX: I63.9 Cerebral infarction, unspecified (principal); H54.62 Unqualified visual loss, left eye, normal vision right eye; I10 Essential (primary) hypertension; E78.5 Hyperlipidemia, unspecified; E87.6 Hypokalemia; F17.210 Nicotine dependence, cigarettes, uncomplicated; I65.23 Occlusion and stenosis of bilateral carotid arteries; Z03.818 Encounter for observation for suspected exposure to other biological agents ruled out
CPT/HCPCS: 36415; 70496; 70498; 70551; 80048; 80053; 80061; 80306; 81003; 83036; 83690; 83721; 83735; 85025; 85651; 86140; 86769; 87635; 92610; 93005; 93306; 93880; 97161; 97166; 99285; A9270; Q9967; 81001; 81599; 87086

== ENCOUNTER 2019-10-16 08:00 | Outpatient (CLI) | payer MEDICAID, OTHER ==
[2019-10-16 18:47] LABS: BASOPHILS # (AUTO) 0.1 10^3/uL (0.0-0.1); EOSINOPHILS % (AUTO) 0.4 %; LYMPHOCYTES # (AUTO) 1.8 10^3/uL (1.5-3.5); MEAN CORPUSCULAR HEMOGLOBIN 36.5 pg (27.0-31.0); MEAN CORPUSCULAR HGB CONC 34.6 g/dL (32.0-36.0); MEAN CORPUSCULAR VOLUME 105.6 fL (80.0-94.0); MEAN PLATELET VOLUME 10.5 fL (7.4-11.4); MONOCYTES # (AUTO) 0.3 10^3/uL (0.0-1.0); MONOCYTES % (AUTO) 7.1 %; NEUTROPHILS # (AUTO) 2.6 10^3/uL (1.5-6.6); NEUTROPHILS % (AUTO) 54.1 %; PLT - PLATELET COUNT 131 10^3/uL (130-450); RED BLOOD COUNT 3.56 10^6/uL (4.70-6.10); RED CELL DISTRIBUTION WIDTH 14.1 % (12.0-15.0); WHITE BLOOD COUNT 4.8 x10^3/uL (4.8-10.8)
[2019-10-16 19:55] LABS: ALBUMIN 3.3 g/dL (3.2-5.5); ALBUMIN/GLOBULIN RATIO 1.1 (1.0-2.2); ALKALINE PHOSPHATASE 167 IU/L (42-121); ALT ALANINE AMINOTRANSFERASE 191 IU/L (10-60); AST ASPARTATE AMINOTRANSFERASE 313 IU/L (10-42); BILIRUBIN,TOTAL 1.7 mg/dL (0.2-1.0); BUN - BLOOD UREA NITROGEN 12 mg/dL (6-20); CALCIUM 8.9 mg/dL (8.5-10.3); CARBON DIOXIDE - CO2 28 mmol/L (21-32); CHLORIDE 96 mmol/L (101-111); CHOL/HDL RATIO 13.9 (<5.0); CHOLESTEROL 333 mg/dL; CREATININE 0.8 mg/dL (0.6-1.2); GLUCOSE 131 mg/dL (70-100); HDL CHOLESTEROL 24 mg/dL; SODIUM 135 mmol/L (135-145); TOTAL PROTEIN 6.4 g/dL (6.7-8.2)
[2019-10-16 20:19] LABS: LDL CHOLESTEROL,DIRECT 51 mg/dL; LDLD/HDL RATIO 2.1 (<3.6)
== END 2019-10-16 23:59 | disposition home or self-care (01) ==
LOC: LAB.WCP 08:00
PROVIDERS: ATTEND Registered Nurse
DX: Z71.89 Other specified counseling (principal); B97.89 Other viral agents as the cause of diseases classified elsewhere
CPT/HCPCS: 36415; 80053; 80061; 83721; 84443; 85025

== ENCOUNTER 2020-02-18 08:24 | Outpatient (CLI) | payer MEDICAID, OTHER ==
[2020-02-18 13:09] LABS: ALBUMIN 3.8 g/dL (3.2-5.5); ALKALINE PHOSPHATASE 60 IU/L (42-121); ALT ALANINE AMINOTRANSFERASE 39 IU/L (10-60); AST ASPARTATE AMINOTRANSFERASE 53 IU/L (10-42); BILIRUBIN,TOTAL 0.5 mg/dL (0.2-1.0); BUN - BLOOD UREA NITROGEN 13 mg/dL (6-20); CALCIUM 9.7 mg/dL (8.5-10.3); CARBON DIOXIDE - CO2 25 mmol/L (21-32); CHLORIDE 99 mmol/L (101-111); CHOL/HDL RATIO 2.5 (<5.0); CHOLESTEROL 118 mg/dL; CREATININE 0.8 mg/dL (0.6-1.2); GLUCOSE 90 mg/dL (70-100); HDL CHOLESTEROL 47 mg/dL; LDL CHOLESTEROL,CALCULATED 34 mg/dL; LDL/HDL RATIO 0.7 (<3.6); SODIUM 138 mmol/L (135-145); TOTAL PROTEIN 7.5 g/dL (6.7-8.2); VLDL CHOLESTEROL 37 mg/dL
[2020-02-18 13:24] LABS: HEMOGLOBIN A1c% 5.1 % (4.27-6.07)
== END 2020-02-18 23:59 | disposition home or self-care (01) ==
LOC: LAB.WCP 08:24
PROVIDERS: ATTEND Physician Assistant Medical
DX: R73.9 Hyperglycemia, unspecified (principal); E78.5 Hyperlipidemia, unspecified
CPT/HCPCS: 36415; 80053; 80061; 83036; 83721

== ENCOUNTER 2020-05-05 10:21 | Day surgery (SDC) | payer BC, MEDICAID ==
[2020-05-05] MEDS ORDERED: LACTATED RINGERS 1,000 ML IV ONE ×2 (10:29→13:34)
[2020-05-05] MEDS ORDERED: MIDAZOLAM 2 MG/2 ML VIAL ONE ×2 (13:05→13:23)
[2020-05-05] MEDS ORDERED: fentaNYL 250 MCG/5 ML VIAL ONE (13:05)
[2020-05-05 14:12] VITALS: BP 127/85
== END 2020-05-05 10:22 | disposition home or self-care (01) ==
LOC: SDS 10:21
PROVIDERS: ATTEND Internal Medicine Gastroenterology
PROC: 0DBN8ZZ Excision of Sigmoid Colon, Via Natural or Artificial Opening Endoscopic (ICD-10-PCS; principal; 2020-05-05 12:00)
DX: Z12.11 Encounter for screening for malignant neoplasm of colon (principal); D12.5 Benign neoplasm of sigmoid colon; F17.210 Nicotine dependence, cigarettes, uncomplicated; I10 Essential (primary) hypertension; I65.29 Occlusion and stenosis of unspecified carotid artery
CPT/HCPCS: 45380; J3010; J7120

== ENCOUNTER 2020-06-03 09:24 | Outpatient (CLI) | payer BC, MEDICAID | END 2020-06-03 09:25 | disposition home or self-care (01) | LOC: DI 09:24 | PROVIDERS: ATTEND Physician Assistant Medical | DX: I63.9 Cerebral infarction, unspecified (principal) | CPT/HCPCS: 93306 ==

== ENCOUNTER 2020-11-13 09:34 | Outpatient (CLI) | payer BC, MEDICAID | END 2020-11-13 09:35 | disposition critical access hospital (66) | LOC: EMS 09:34 | DX: R42 Dizziness and giddiness (principal); Z91.81 History of falling | CPT/HCPCS: A0425; A0427 ==

== ENCOUNTER 2020-11-13 09:54 | Inpatient (IN) | payer BC, MEDICAID ==
--- NOTE | 2020-11-13 10:09 | ED Physician Documentation ---
PD HPI Fall - Stated complaint Stated Complaint: WEAK/DIZZY/FALLS - Chief complaint Chief Complaint: Neuro - History obtained from History obtained from: Patient, EMS - History of Present Illness Mechanism of injury: Lost balance (The patient states she has had 4 to 5 days of feeling off balance and falling. He states he can stand bedside and has strength in his legs but immediately falls over when trying to walk. He has been able to manipulate with his hands so no fine motor problem. Poor PO intake as unable to get up.) Fall distance: Standing position Where injury occurred: Home Timing - onset: How many days ago (fallen multiple times over past 5 days.) Injury(ies) location: Other (mostly bruisings to extremities. No focal bony pains.). No: Head, Chest, Abdomen Associated symptoms: Other (off balance and falling with attempts at walking. Able to stand okay without leg weakness.). No: LOC, AMS, Amnesia, Weakness, Paresthesias Symptoms improve with: Rest Worsens with: Movement Contributing factors: No: Anticoagulated, Intoxicated Similar symptoms before: Has not had sx before Recently seen: Not recently seen Review of Systems Constitutional: denies: Fever, Chills Nose: denies: Rhinorrhea / runny nose, Congestion Throat: denies: Sore throat Cardiac: denies: Chest pain / pressure, Palpitations Respiratory: denies: Dyspnea, Cough GI: denies: Abdominal Pain, Nausea, Vomiting, Diarrhea Skin: denies: Rash, Lesions Musculoskeletal: denies: Neck pain, Back pain Neurologic: denies: Focal weakness, Numbness, Syncope, Altered mental status, Headache, Head injury PD PAST MEDICAL HISTORY - Past Medical History Cardiovascular: Hypertension, High cholesterol Respiratory: None Neuro: None Endocrine/Autoimmune: None GI: None : None HEENT: Chronic vision loss, Other Psych: None Musculoskeletal: Osteoarthritis Derm: None - Past Surgical History Ortho: Arthroscopic surgery, Other - Present Medications Home Medications: Ambulatory Orders Medication Instructions Recorded Confirmed Aspirin [Adult Aspirin Regimen] 81 mg PO DAILY #30 tablet. 08/22/19 11/13/20 Atorvastatin Calcium 80 mg PO DAILY PM #30 tablet 08/22/19 11/13/20 Lisinopril/Hydrochlorothiazide 1 each PO DAILY #1 tablet 08/22/19 11/13/20 [Lisinopril-Hctz 10-12.5 mg Tab] gemfibroziL [Lopid] 600 mg PO DAILY #30 tablet 08/23/19 11/13/20 - Allergies Allergies/Adverse Reactions: Allergies Allergy/AdvReac Type Severity Reaction Status Date / Time Penicillins Allergy Unknown facial Verified 11/13/20 10:05 swelling - Social History Does the pt smoke?: Yes Smoking Status: Current every day smoker - Immunizations Immunizations are current?: No - POLST Patient has POLST: No POLST Status: Full Code PD ED PE NORMAL - Vitals Vital signs reviewed: Yes (BP is low but improving with IV fluids. ) - General General: Alert and oriented X 3, No acute distress, Well developed/nourished - HEENT HEENT: Atraumatic, PERRL, EOMI (no nystagmus), Pharynx benign - Neck Neck: Supple, no meningeal sign, No adenopathy, No bruit - Cardiac Cardiac: RRR, No murmur - Respiratory Respiratory: No respiratory distress, Clear bilaterally, Other (no chestwall tenderness. ) - Abdomen Abdomen: Soft, Non tender - Back Back: No CVA TTP - Derm Derm: Normal color, Warm and dry - Extremities Extremities: Normal ROM s pain, Other (He does have multiple bruises on the forearms and legs consistent with multiple falls. 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 Gross motor of arms and legs is symmetric.) Eye Opening: Spontaneous Motor: Obeys Commands Verbal: Oriented GCS Score: 15 Results - Vitals Vitals: Vital Signs - 24 hr 11/13/20 11/13/20 11/13/20 10:00 11:09 11:25 Temperature 36.8 C Heart Rate 98 75 69 Respiratory 18 15 16 Rate Blood Pressure 87/64 L 82/56 L 117/54 L O2 Saturation 98 100 11/13/20 11:38 Temperature Heart Rate 68 Respiratory 16 Rate Blood Pressure 108/72 O2 Saturation 99 Oxygen O2 Source Room air - EKG (time done) 10:00 Rate: Rate (enter#) (82) Rhythm: NSR [place]: Normal Intervals: Normal [place] QRS: Normal Ischemia: Normal ST segments. No: ST elevation c/w ischemia, ST depression - Labs Labs: Laboratory Tests 11/13/20 11/13/20 11/13/20 10:10 10:10 10:10 WBC 6.3 RBC 2.93 L Hgb 11.2 L Hct 31.2 L MCV 106.5 H MCH 38.2 H MCHC 35.9 RDW 13.6 Plt Count 94 L MPV 10.1 Neut # (Auto) 5.0 Lymph # (Auto) 1.0 L [place] # (Auto) 0.2 Eos # (Auto) 0.0 Baso # (Auto) 0.0 Absolute Nucleated RBC 0.00 Nucleated RBC % 0.0 PT INR APTT Sodium 128 L Potassium 2.5 L* Chloride 89 L Carbon Dioxide 21 Anion Gap 18.0 H BUN 38 H Creatinine 3.5 H Estimated GFR (MDRD) 19 L Glucose 98 Calcium 8.1 L Magnesium 2.1 Total Bilirubin 1.5 H AST 171 H ALT 71 H Alkaline Phosphatase 160 H Total Creatine Kinase 1517 H* Troponin I High Sens 15.1 Total Protein 6.9 Albumin 3.0 L Globulin 3.9 Albumin/Globulin Ratio 0.8 L Lipase 58 H TSH Cortisol 11/13/20 11/13/20 10:32 12:22 WBC RBC Hgb Hct MCV MCH MCHC RDW Plt Count MPV Neut # (Auto) Lymph # (Auto) [place] # (Auto) Eos # (Auto) Baso # (Auto) Absolute Nucleated RBC Nucleated RBC % PT 13.5 H INR 1.2 APTT 31.6 Sodium Potassium Chloride Carbon Dioxide Anion Gap BUN Creatinine Estimated GFR (MDRD) Glucose Calcium Magnesium Total Bilirubin AST ALT Alkaline Phosphatase Total Creatine Kinase Troponin I High Sens Total Protein Albumin Globulin Albumin/Globulin Ratio Lipase TSH 2.46 Cortisol 18.5 - Rads (name of study) head CT Radiology: Prelim report reviewed (no acute ICH nor acute process), See rad report chest xray Radiology: Prelim report reviewed (no acute process), See rad report PD MEDICAL DECISION MAKING - ED course Complexity details: reviewed results (He does have acute renal insufficiency probably related to dehydration coupled with continued use of his lisinopril and HCTZ. Electrolytes are normal as well. Head CT without any acute process. Likely will need MRI.), re-evaluated patient, considered differential (Consider posterior circulation cerebrovascular process such as cerebellar stroke or MS. Can check electrolytes and blood sugar and such as well regarding the dehydration and low blood pressure but I think BP would be unrelated to the balance disorder. He does not describe presyncope. ), d/w patient ED course: The patient describes balance problem with falling but no problems with leg strength per se nor vertigo nor lightheadedness. Concern would be posterior circulation such as cerebellar disorder to include tumor or stroke MS or bleed. He does have acute lab abnormalities of low potassium and sodium and a significantly elevated creatinine were consistent with dehydration and fluid disorder. I think this may be subsequent to his not eating well for the last couple of days and continued use of his normal blood pressure medicines of the diuretic and SONA inhibitor. However the electrolyte disorders may be enhancing some of the off-balance feeling. Also consider endocrinologic problems such as thyroid disorder or parathyroid. Departure - Departure Disposition: 66 [facility] DC/Xfer Clinical Impression: Acute ataxia, Falls, Hypokalemia, Hyponatremia, Acute renal insufficiency, Elevated CK Condition: Stable Record reviewed to determine appropriate education?: Yes
[2020-11-13] MEDS ORDERED: SODIUM CHLORIDE 0.9% 1,000 ML IV STA ×2 (10:13→10:17)
[2020-11-13] MEDS ORDERED: IOPAMIDOL-300 100 ML VIAL ONE (10:29)
--- NOTE | 2020-11-13 10:36 | XRAY Report ---
PROCEDURE: Chest 1 View X-Ray INDICATIONS: chest pain TECHNIQUE: One view of the chest was acquired. COMPARISON: Chest x-ray 08/05/2019 FINDINGS: Surgical changes and devices: None. Lungs and pleura: No pleural effusions or pneumothorax. Lungs are clear. Mediastinum: Mediastinal contours appear normal. Heart size is normal. Bones and chest wall: No suspicious bony lesions. Overlying soft tissues appear unremarkable. IMPRESSION: No acute pulmonary process. Reviewed by: Natalia Mora MD on 11/13/2020 10:35 AM PDT Approved by: Natalia Mora MD on 11/13/2020 10:35 AM PDT Station ID: [id number]
[2020-11-13 10:46] LABS: BASOPHILS % (AUTO) 0.3 %; EOSINOPHILS % (AUTO) 0.2 %; HCT - HEMATOCRIT 31.2 % (42.0-52.0); HGB - HEMOGLOBIN 11.2 g/dL (14.0-18.0); MEAN CORPUSCULAR HEMOGLOBIN 38.2 pg (27.0-31.0); MEAN CORPUSCULAR HGB CONC 35.9 g/dL (32.0-36.0); MEAN CORPUSCULAR VOLUME 106.5 fL (80.0-94.0); MEAN PLATELET VOLUME 10.1 fL (7.4-11.4); MONOCYTES # (AUTO) 0.2 10^3/uL (0.0-1.0); MONOCYTES % (AUTO) 3.8 %; NEUTROPHILS % (AUTO) 79.4 %; PLT - PLATELET COUNT 94 10^3/uL (130-450); RED BLOOD COUNT 2.93 10^6/uL (4.70-6.10); RED CELL DISTRIBUTION WIDTH 13.6 % (12.0-15.0); WHITE BLOOD COUNT 6.3 x10^3/uL (4.8-10.8)
[2020-11-13 11:00] LABS: ALBUMIN/GLOBULIN RATIO 0.8 (1.0-2.2); BILIRUBIN,TOTAL 1.5 mg/dL (0.2-1.0); CALCIUM 8.1 mg/dL (8.5-10.3); CREATININE 3.5 mg/dL (0.6-1.2); MAGNESIUM 2.1 mg/dL (1.7-2.8); TOTAL PROTEIN 6.9 g/dL (6.7-8.2)
[2020-11-13 11:03] LABS: POTASSIUM 2.5 mmol/L (3.5-5.0)
[2020-11-13 11:06] LABS: INR 1.2 (0.8-1.2); PT - PROTHROMBIN TIME 13.5 secs (9.9-12.6)
[2020-11-13 11:14] LABS: PARTIAL THROMBOPLASTIN TIME 31.6 secs (24.9-33.3)
[2020-11-13] MEDS ORDERED: POTASSIUM CHLOR 10 MEQ/100 ML 10 MEQ/100 ML BAG IV ONE (11:19)
--- NOTE | 2020-11-13 11:41 | CT Report ---
PROCEDURE: HEAD WO INDICATIONS: Left-sided facial droop TECHNIQUE: Noncontrast 4.5 mm thick angled axial sections acquired from the foramen magnum to the vertex. For r adiation dose reduction, the following was used: automated exposure control, adjustment of mA and/or kV according to patient size. COMPARISON: MRI brain 08/22/2019 FINDINGS: Image quality: Excellent. CSF spaces: Basal cisterns are patent. No extra-axial fluid collections. Ventricles are normal in size and shape. Brain: No midline shift. No intracranial masses or hemorrhage. Watts-white matter interface is norm al. Small remote left lacunar basal ganglia infarct. Mild global cerebral volume loss and mild chroni c microvascular ischemic changes. Skull and face: Calvarium and visualized facial bones are intact, without suspicious lesions. Sinuses: Visualized sinuses and mastoids are clear. IMPRESSION: No acute intracranial abnormality. Global cerebral volume loss and chronic microvascular ischemic change. Remote left basal ganglia lacunar infarct. Reviewed by: Juan Antonio Khanna MD on 11/13/2020 11:39 AM PDT Approved by: Juan Antonio Khanna MD on 11/13/2020 11:39 AM PDT Station ID: [id number]
[2020-11-13 12:55] LABS: CORTISOL 18.5 ug/dL
[2020-11-13 13:00] LABS: THYROID STIMULATING HORMONE 2.46 uIU/mL (0.34-5.60)
[2020-11-13] MEDS ORDERED: SODIUM CHLORIDE FLUSH 0.9% 10 ML SYRINGE IVP PRN (13:09)
[2020-11-13] MEDS ORDERED: ACETAMINOPHEN 325 MG TABLET PO PRN (13:09)
[2020-11-13] MEDS ORDERED: ONDANSETRON 4 MG/2 ML VIAL IVP PRN (13:09)
[2020-11-13] MEDS: DEXTROSE 5%-0.9% NACL 1,000 ML IV SCH (14:34)
--- NOTE | 2020-11-13 14:48 | PHARMACY PROGRESS NOTE ---
- Best Possible Medication History Admit Date and Time: 11/13/20 9064 Processed by: Nursing Medication History completed: Yes Patient Interview: Completed (MED REC COMPLETED BY NURSING) As the person ultimately responsible for medication therapy, providers are able to order a medication from an existing home medication list in [facility] via the "Reconcile Routine" prior to Confirmation of that medication by residential direct support professional. Such practice is discouraged except when the physician, in their clinical judgment, deems that a medical need exists for a medication without regard to previous use.
[2020-11-13 15:16] LABS: B. PARAPERTUSSIS- RESP PCR PAN NOT DETECTED; B. PERTUSSIS- RESP PCR PANEL NOT DETECTED; C. PNEUMONIAE- RESP PCR PANEL NOT DETECTED; CORONAVIRUS 229E-RESP PCR NOT DETECTED; CORONAVIRUS HKU1-RESP PCR NOT DETECTED; CORONAVIRUS NL63-RESP PCR NOT DETECTED; CORONAVIRUS OC43-RESP PCR NOT DETECTED; HUMAN METAPNEUMOVIRUS NOT DETECTED; INFLUENZA A- RESP PCR PANEL NOT DETECTED; INFLUENZA B - RESP PCR PANEL NOT DETECTED; M. PNEUMONIAE- RESP PCR PANEL NOT DETECTED; PARAINFLUENZA VIRUS 1 NOT DETECTED; PARAINFLUENZA VIRUS 2 NOT DETECTED; PARAINFLUENZA VIRUS 3 NOT DETECTED; PARAINFLUENZA VIRUS 4 NOT DETECTED; RHINOVIRUS/ENTEROVIRUS NOT DETECTED; RSV- RESP PCR PANEL NOT DETECTED; SARS-CoV-2 -RESP PCR PANEL NOT DETECTED
--- NOTE | 2020-11-13 15:55 | XRAY Report ---
PROCEDURE: Abdomen 1 View X-Ray INDICATIONS: Diarrhea, anorexia TECHNIQUE: 1 view of the abdomen were acquired. COMPARISON: None FINDINGS: Surgical changes and devices: None. Bowel: No pneumoperitoneum. The bowel gas pattern is normal. Soft tissues: There is large.. No suspicious abdominal calcifications. Bones: No suspicious bony abnormalities. IMPRESSION: 1. No obstruction. 2. Liver shadow appears enlarged. Reviewed by: Natalia Mora MD on 11/13/2020 3:54 PM PDT Approved by: Natalia Mora MD on 11/13/2020 3:54 PM PDT Station ID: [id number]
[2020-11-13] MEDS: NICOTINE 21 MG PATCH TOP SCH (16:34)
[2020-11-13] MEDS: SODIUM CHLORIDE FLUSH 0.9% 10 ML SYRINGE IVP SCH (16:36)
--- NOTE | 2020-11-13 16:52 | HISTORY & PHYSICAL EXAMINATION ---
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 He lives alone and has noticed being "off balance" for about 4 days which has caused him to fall several times, to the point of having bruises. He does not feel muscular weakness and is able to stand. His finger and eye coordination is okay. He got worsening balance symptoms and remained in bed for 1 entire day, not eating or drinking but he continued to take his blood pressure meds. Today he felt even worse and called 911 and was found to have a blood pressure of 80 at the scene however he was awake and alert. In the ER he was found to have blood pressure of 90 which improved to 110 then 120 systolic after IV fluids. He had no focal neurologic signs but his gait was not tested. The CT of the head was okay. His labs however were quite remarkable: Creatinine 3.5 (usually 1.0), potassium 2.5, sodium 128, CK 1500. The patient is being admitted to inpatient status for treating CRUZITO, dehydration, rhabdomyolysis from recurrent falls and acute ataxia which is a stroke-like symptom. History - Past Medical History Cardiovascular: reports: Hypertension, High cholesterol Respiratory: reports: None Neuro: reports: None (eye blindness from old stroke), CVA Endocrine/Autoimmune: reports: None GI: reports: None : reports: None HEENT: reports: Chronic vision loss, Other Psych: reports: None Musculoskeletal: reports: Osteoarthritis Derm: reports: None MRSA Hx?: Yes - Past Surgical History Ortho: reports: Arthroscopic surgery, Other - Family & Social History Family History: Father: Alive and Well Family History Comment/Other: Patient denied any significant family history Living arrangement: At home Living Situation: Alone Social History Notes: Patient smokes 1 pack/day of cigarettes. He has been smoking for 25+ years. He drinks alcohol occasionally. He denies any illicit drug use. Patient lives alone. - Substance History Use: Uses substance without health or social issues: Tobacco, Alcohol - POLST Patient has POLST: No POLST Status: Full Code Meds/Allgy - Home Medications Home Medications: Ambulatory Orders Medication Instructions Recorded Confirmed Aspirin [Adult Aspirin Regimen] 81 mg PO DAILY #30 tablet. 08/22/19 11/13/20 Atorvastatin Calcium 80 mg PO DAILY PM #30 tablet 08/22/19 11/13/20 Lisinopril/Hydrochlorothiazide 1 each PO DAILY #1 tablet 08/22/19 11/13/20 [Lisinopril-Hctz 10-12.5 mg Tab] gemfibroziL [Lopid] 600 mg PO DAILY #30 tablet 08/23/19 11/13/20 - Allergies Allergies/Adverse Reactions: Allergies Allergy/AdvReac Type Severity Reaction Status Date / Time Penicillins Allergy Unknown facial Verified 11/13/20 10:05 swelling Review of Systems - Constitutional Constitutional: reports: Fatigue, Weakness, Poor appetite - Integumentary Integumentary: reports: Other (Many bruises, since being on daily aspirin) - Neurological Neurological: reports: Dizziness (Poor balance), Other (R eye blindness) - All Other Systems All Other Systems: reports: Reviewed and negative Exam - Vital Signs Reviewed Vital Signs: Yes Vital Signs: Vital Signs x48h Temp Pulse Pulse Resp BP BP Pulse Ox 11/13/20 16:41 37.0 C 108 H 16 105/64 99 11/13/20 14:11 37.1 C 84 16 120/71 100 11/13/20 13:46 36.9 C 75 12 97/61 98 11/13/20 11:38 68 16 108/72 99 11/13/20 11:25 69 16 117/54 L 100 11/13/20 11:09 75 15 82/56 L 11/13/20 10:00 36.8 C 98 18 87/64 L 98 - Physical Exam General Appearance: positive: No acute distress, Alert Eyes Bilateral: positive: PERRL, EOMI ENT: positive: ENT inspection nml, No signs of dehydration Neck: positive: Nml inspection, Thyroid nml, No JVD Respiratory: positive: Breath sounds nml Cardiovascular: positive: Regular rate & rhythm, No murmur Abdomen: positive: Non-tender, Nml bowel sounds, No distention Skin: positive: Warm, Dry, Other (Old bruises outer arms, new bruises inner arms and legs) Neurologic/Psychiatric: positive: Oriented x3 (Strength grossly normal) Conclusion/Plan - Problem List (1) Acute ataxia Conclusion/Plan: Will place the patient on telemetry and watch for A. fib due to his stroke-like symptoms. We will obtain an Echo to rule out an intracardiac clot or shunt. We will obtain an MRI and MRA of the brain to rule out a stroke. If confirmed, will add Plavix. Once these are finished, will order PT and OT. (2) Hypotension Conclusion/Plan: He has been without food or drink for about 1-1/2 days however was on HCTZ. Perhaps this combination caused such severe hypotension. Hypotension may have caused cerebral hypoperfusion leading to 4 days of symptoms then. We will begin IV fluids. Hold his losartan HCTZ dosing Eval for Hypothyroidism, check TSH (3) Acute renal insufficiency Conclusion/Plan: This is likely from poor intake for 24 hours or more, having taken HCTZ and possibly a component of ATN from rhabdomyolysis. Will be give gentle IV fluids. Avoid nephrotoxins. Follow BMP daily (4) Rhabdomyolysis Conclusion/Plan: Begin IV fluids. Follow CK daily. (5) Falls Conclusion/Plan: Likely due to his feelings of poor balance and the work-up for that is underway PT evaluation also planned. Follow hemoglobin daily for developing anemia, given the large amount of bruises that are present (6) Hyponatremia Conclusion/Plan: This may have added to his feelings of weakness or confusion. RVR resolved of taking HCTZ and no oral intake for 24 hours or more. Begin IV saline, plan is for slow correction. Follow BMP day (7) Hypokalemia Conclusion/Plan: Possibly related to the new diarrhea but also most likely poor p.o. intake and being on chronic HCTZ are the cause this. Replace with IV K riders. Placed on telemetry. Follow BMP daily (8) Hx of essential hypertension Conclusion/Plan: His blood pressure medication will be on hold due to hypotension - Lab Results Fish Bones: 11/13/20 10:10 11/13/20 10:10
--- NOTE | 2020-11-13 18:39 | MRI Report ---
PROCEDURE: Brain W/O INDICATIONS: STROKE LIEK SYMPTOMS OF ATAXIA FRO 4 DAYS TECHNIQUE: Noncontrast axial T1 spin echo, axial T2 fast spin echo, sagittal and axial FLAIR, coronal T2 fast sp in echo, axial gradient echo, axial diffusion and ADC through the brain. COMPARISON: None. FINDINGS: Image quality: Excellent. CSF Spaces: Basal cisterns are patent. No extra-axial fluid collections. Ventricles are normal in size and shape. Brain: No intracranial masses or hemorrhage. Watts/white matter interface is normal. Brainstem appe ars normal. Diffusion-weighted images demo nstrate no acute ischemic insult. No chronic ischemic insults. Normal intravascular flow voids are present. 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 There is an old lacunar left thalamic infarct present. Skull and face: Calvarium has normal marrow signal. Orbits appear normal. Sinuses: Sinuses and mastoids are clear. IMPRESSION: Mild atrophy and white matter chronic ischemic change without acute infarct, hemorrhage or mass lesio n Old left thalamic lacunar infarct. Reviewed by: Domingo Kinney MD on 11/13/2020 5:37 PM AKDT Approved by: Domingo Kinney MD on 11/13/2020 5:37 PM AKDT Station ID: [id number]
--- NOTE | 2020-11-13 18:59 | MRI Report ---
PROCEDURE: Angio Brain W/O (MRA) INDICATIONS: STROKE LIKE SX OF ATAXIA FOR 4 DAYS TECHNIQUE: Noncontrast axial 3-D [id number] MR angiogram, with 3-dimensional maximum intensity projection (M IP) reformats of the internal carotid arteries and posterior circulation then performed. COMPARISON: None. FINDINGS: Image quality: Excellent. Anterior circulation: Intracranial internal carotid arteries demonstrate normal size and intralumina l flow signal. The flow within the paired anterior cerebral arteries is normal and symmetric. The f low within the middle cerebral arteries is normal and symmetric. The anterior communicating artery i s seen. No stenoses, occlusions, or aneurysms. Posterior circulation: Visualized portions of the vertebral arteries demonstrate normal caliber, and join to form a normal appearing basilar artery. The flow within the posterior cerebral arteries is normal and symmetric. 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 The P2 segment is supplied by a widely patent posterior communicating artery. Remainder of the distal vasculature unremarkable. No st enoses, occlusions, or aneurysms. IMPRESSION: Unremarkable MR angiogram brain without evidence of aneurysm, large vessel occlusion or vascular malf ormation. Reviewed by: Domingo Kinney MD on 11/13/2020 5:58 PM KULDEEP Approved by: Domingo Kinney MD on 11/13/2020 5:58 PM AKCHUCK Station ID: [id number]
[2020-11-13] MEDS ORDERED: LORazepam 2 MG/ML VIAL IVP PRN (19:22)
[2020-11-13] MEDS ORDERED: MAGNESIUM SULFATE 2 GRAM 2 GM/50 ML BAG IV ONE (19:22)
[2020-11-13] MEDS: VANCOMYCIN 125 MG CAPSULE PO SCH (22:35)
[2020-11-14] MEDS: SODIUM CHLORIDE FLUSH 0.9% 10 ML SYRINGE IVP SCH ×3 (00:30→16:27)
[2020-11-14] MEDS: DEXTROSE 5%-0.9% NACL 1,000 ML IV SCH (01:47)
[2020-11-14 07:23] LABS: BILIRUBIN,DIRECT 0.5 mg/dL (0.1-0.5); BILIRUBIN,TOTAL 1.3 mg/dL (0.2-1.0); TOTAL PROTEIN 6.7 g/dL (6.7-8.2)
[2020-11-14 07:44] LABS: BASOPHILS % (AUTO) 0.3 %; EOSINOPHILS % (AUTO) 0.3 %; HCT - HEMATOCRIT 23.3 % (42.0-52.0); HGB - HEMOGLOBIN 8.5 g/dL (14.0-18.0); LYMPHOCYTES # (AUTO) 1.3 10^3/uL (1.5-3.5); LYMPHOCYTES % (AUTO) 20.3 %; MEAN CORPUSCULAR HEMOGLOBIN 39.7 pg (27.0-31.0); MEAN CORPUSCULAR HGB CONC 36.5 g/dL (32.0-36.0); MEAN CORPUSCULAR VOLUME 108.9 fL (80.0-94.0); MEAN PLATELET VOLUME 10.4 fL (7.4-11.4); MONOCYTES # (AUTO) 0.3 10^3/uL (0.0-1.0); MONOCYTES % (AUTO) 5.1 %; NEUTROPHILS # (AUTO) 4.6 10^3/uL (1.5-6.6); NEUTROPHILS % (AUTO) 73.7 %; PLT - PLATELET COUNT 85 10^3/uL (130-450); RED BLOOD COUNT 2.14 10^6/uL (4.70-6.10); RED CELL DISTRIBUTION WIDTH 13.6 % (12.0-15.0); WHITE BLOOD COUNT 6.3 x10^3/uL (4.8-10.8)
[2020-11-14 07:59] LABS: CALCIUM 8.2 mg/dL (8.5-10.3); CREATININE 2.2 mg/dL (0.6-1.2)
[2020-11-14 08:03] LABS: POTASSIUM 2.4 mmol/L (3.5-5.0)
[2020-11-14] MEDS: VANCOMYCIN 125 MG CAPSULE PO SCH ×4 (08:31→20:43)
[2020-11-14] MEDS: PRENATAL VITAMIN TABLET PO SCH (08:31)
[2020-11-14] MEDS: THIAMINE 100 MG TABLET PO SCH (08:32)
[2020-11-14] MEDS: NICOTINE 21 MG PATCH TOP SCH (08:32)
[2020-11-14 08:55] LABS: CK- CREATINE KINASE 977 IU/L (22-269); GAMMA GLUTAMYL TRANSPEPTIDASE 1608 IU/L (8-55)
[2020-11-14 10:08] LABS: FOLATE 18.06 ng/mL (5.90 - >24.8)
[2020-11-14] MEDS: NS W/20 MEQ KCL 1,000 ML IV SCH ×2 (10:12→17:52)
[2020-11-14] MEDS: POTASSIUM CHLOR 10 MEQ/100 ML 10 MEQ/100 ML BAG IV SCH ×7 (10:15→21:12)
--- NOTE | 2020-11-14 16:10 | PROVIDER PROGRESS NOTE ---
Assessment/Plan - Problem List (1) C. difficile diarrhea Assessment/Plan: Yesterday the patient said that his diarrhea started yesterday (on the day of admission). Today he says that he had stomach rumbling for the last 4 days. Etiology of C. difficile diarrhea Bri for this man is unknown: He has not taken any antibiotics recently. He has not been exposed to any people with diarrhea or known C. difficile. He did say that his cat had recent diarrhea. (Cats and dogs can get C. diff). He told his father to feed and take care of this pt's cat with gloves on. P.o. Vanco has been started. Contact isolation has been ordered. Continue with IV hydration while he is diarrhea. (2) Elevated LFTs Assessment/Plan: This patient reported at admission that he only drinks "alcohol occasionally". With these elevated LFTs I checked a GGT and it is very elevated, suggesting alcoholic transaminitis. I directly asked him what type of alcohol and the amounts. He admitted that he drinks beer, wine and coke-mixed drinks, 4-6 every day and even more on weekends. I gave him the diagnosis that his liver is enlarged on his abdominal x-ray and that his liver function tests show that he has Alcoholic hepatitis. He stated that he will need to stop. His last alcohol drink was 5 days ago, because he felt so bad and had stomach rumbling. There are no signs of Wernicke's or Korsakoff's. We will continue with thiamine 100 mg daily and a vitamin daily. Follow LFTs daily (3) Acute ataxia Assessment/Plan: Resolved, as per PT eval done today. The patient also notices that his "balance is better". He now admits that he felt some kind of stomach rumbling and did not feel right and therefore did not have any alcohol for the last 5 days. He did admit to drinking heavily 4-6 drinks every day. The brain MRI and MRA only showed an old thalamic stroke, no acute stroke findings (4) Alcohol abuse Assessment/Plan: Aa above. He said he has never gone through alcohol withdrawal. Continue with daily thiamine and vitamin (5) Acute renal insufficiency Assessment/Plan: Creatinine has improved from 3.5 down to 2.2 today with IV hydration. Continue with IV hydration. Avoid nephrotoxins. Continue to hold his blood pressure med containing HCTZ Follow BMP daily (6) Rhabdomyolysis Assessment/Plan: His frequent falls led to elevation of CK and rhabdomyolysis. Continue with IV hydration to flush the CK. Follow CK daily. (7) Falls Assessment/Plan: My impression is that he was falling from alcohol intoxication or alcohol withdrawal which she described as the recent "being off balance". Likely these falls caused his rhabdomyolysis. He had detailed evaluation by physical therapy today and tested quite normally, does not need PT rehab or a front wheeled walker (8) Hyponatremia Assessment/Plan: Improving with IV NS hydration. Continue IV fluids while the CK is elevated and for treating the low sodium (9) Hypokalemia Assessment/Plan: Still severely low despite potassium replacement. Continue with potassium replacement and IV hydration. Follow BMP daily (10) History of CVA with residual deficit Assessment/Plan: He has left eye blindness. Continue with his daily aspirin and chol tx (11) Hx of essential hypertension Assessment/Plan: His lisinopril/HCTZ daily med is on hold while here because of the hypotension and CRUZITO. Today his blood pressure is normal and no BP med is on board. Once his creatinine improves, he will be started on Norvasc and not the lisinopril/HCT because of these complications that have occurred on it (12) Hypotension Assessment/Plan: Resolved with iv hydration and holding his home BP med - Current Meds Current Meds: Current Medications Generic Name Dose Route Start Last Admin Trade Name Freq PRN Reason Stop Dose Admin Potassium Chloride/Sodium Chloride 1,000 mls @ 125 mls/hr 11/14/20 09:00 11/14/20 10:12 Normal Saline 0.9% W/20 Meq Kcl IV 125 mls/hr .Q8H LIZBETH Administration Nicotine 1 patch 11/13/20 14:56 11/14/20 08:32 Nicotine 21 Mg Patch TOP 1 patch DAILY LIZBETH Administration Multivit/Folic Acid/Iron 1 tab 11/14/20 09:00 11/14/20 08:31 Vitamin Tablet PO 1 tab DAILY LIZBETH Administration Sodium Chloride 10 ml 11/13/20 17:00 11/14/20 08:33 Sodium Chloride Flush 0.9% 10 Ml Syringe IVP 10 ml 0100,0900,1700 LIZBETH Administration Thiamine HCl 100 mg 11/14/20 09:00 11/14/20 08:32 Thiamine 100 Mg Tablet PO 100 mg DAILY LIZBETH Administration Vancomycin HCl 125 mg 11/13/20 22:10 11/14/20 13:08 Vancomycin 125 Mg Capsule PO 125 mg QID LIZBETH Administration - Lab Result Fish Bone Diagrams: 11/14/20 07:02 11/14/20 16:02 - Additional Planning My Orders: My Active Orders 11/13/20 17:00 Sodium Chloride Flush 0.9% [Normal Saline Flush 0.9%] 10 ml IVP 0100,0900,1700 11/13/20 19:24 Neuro Check [RC] Q4HR 11/14/20 Evaluate and Treat PT [PT] Routine 11/14/20 09:00 Ns W/20 Meq KCl [Normal Saline 0.9% W/20 Meq KCl] 1,000 ml IV 125 mls/hr 11/14/20 16:02 POTASSIUM [CHEM] Timed 11/15/20 05:00 CK- CREATINE KINASE [CHEM] DAILYLAB LIVER PANEL [CHEM] DAILYLAB 11/16/20 05:00 CK- CREATINE KINASE [CHEM] DAILYLAB LIVER PANEL [CHEM] DAILYLAB 11/17/20 05:00 CK- CREATINE KINASE [CHEM] DAILYLAB Subjective - Subjective Patient Reports: Feeling Better, Diarrhea Objective Vital Signs: Vital Signs - 24 hr 11/13/20 11/13/20 11/14/20 16:41 20:13 00:14 Temperature 37.0 C 37.4 C 37.4 C Heart Rate [ Activity] Heart Rate [ 108 H 90 91 Brachial] Heart Rate [ Sitting] Respiratory 16 16 16 Rate Blood Pressure [Activity] Blood Pressure 105/64 124/75 136/85 H [Right Brachial artery] Blood Pressure [Sitting] O2 Saturation 99 100 98 11/14/20 11/14/20 11/14/20 05:32 08:18 12:05 Temperature 37.1 C 37.1 C 37.0 C Heart Rate [ Activity] Heart Rate [ 81 92 107 H Brachial] Heart Rate [ Sitting] Respiratory 16 18 18 Rate Blood Pressure [Activity] Blood Pressure 116/76 123/82 H 126/82 H [Right Brachial artery] Blood Pressure [Sitting] O2 Saturation 99 99 100 11/14/20 11/14/20 13:15 15:52 Temperature 36.9 C Heart Rate [ 110 H Activity] Heart Rate [ 95 Brachial] Heart Rate [ 99 Sitting] Respiratory 16 Rate Blood Pressure 124/98 H [Activity] Blood Pressure 136/86 H [Right Brachial artery] Blood Pressure 126/87 H [Sitting] O2 Saturation 99 Oxygen O2 Source Room air I&O (Last 24 Hrs): Intake and Output Totals x24h 11/12/20 11/13/20 11/14/20 23:59 23:59 23:59 Intake Total 2701.667 2540.000 Output Total 1 Balance 2701.667 2539.000 General: Alert, Oriented x3 HEENT: Atraumatic, EOMI, Mucous membr. moist/pink Neck: Supple, No JVD Neuro: Alert, Non Focal, Other (No nystagmus, gait in normal) Cardiovascular: Regular rate, No murmurs Respiratory: No respiratory distress, Breath sounds nml Abdomen: Soft, No tenderness Extremities: No clubbing, No edema, No tenderness/swelling - Results Results: Laboratory Results WBC 6.3 x10^3/uL (4.8-10.8) 11/14/20 07:02 RBC 2.14 10^6/uL (4.70-6.10) L 11/14/20 07:02 Hgb 8.5 g/dL (14.0-18.0) L 11/14/20 07:02 Hct 23.3 % (42.0-52.0) L 11/14/20 07:02 MCV 108.9 fL (80.0-94.0) H 11/14/20 07:02 MCH 39.7 pg (27.0-31.0) H 11/14/20 07:02 MCHC 36.5 g/dL (32.0-36.0) H 11/14/20 07:02 RDW 13.6 % (12.0-15.0) 11/14/20 07:02 Plt Count 85 10^3/uL (130-450) L 11/14/20 07:02 MPV 10.4 fL (7.4-11.4) 11/14/20 07:02 Neut # (Auto) 4.6 10^3/uL (1.5-6.6) 11/14/20 07:02 Lymph # (Auto) 1.3 10^3/uL (1.5-3.5) L 11/14/20 07:02 Cass # (Auto) 0.3 10^3/uL (0.0-1.0) 11/14/20 07:02 Eos # (Auto) 0.0 10^3/uL (0.0-0.7) 11/14/20 07:02 Baso # (Auto) 0.0 10^3/uL (0.0-0.1) 11/14/20 07:02 Absolute Nucleated RBC 0.00 x10^3/uL 11/14/20 07:02 Nucleated RBC % 0.0 /100WBC 11/14/20 07:02 PT 13.5 secs (9.9-12.6) H 11/13/20 10:32 INR 1.2 (0.8-1.2) 11/13/20 10:32 APTT 31.6 secs (24.9-33.3) 11/13/20 10:32 Sodium 128 mmol/L (135-145) L 11/14/20 07:02 Potassium 2.4 mmol/L (3.5-5.0) L* 11/14/20 07:02 Chloride 93 mmol/L (101-111) L 11/14/20 07:02 Carbon Dioxide 20 mmol/L (21-32) L 11/14/20 07:02 Anion Gap 15.0 (6-13) H 11/14/20 07:02 BUN 30 mg/dL (6-20) H 11/14/20 07:02 Creatinine 2.2 mg/dL (0.6-1.2) H 11/14/20 07:02 Estimated GFR (MDRD) 32 (>89) L 11/14/20 07:02 Glucose 206 mg/dL (70-100) H 11/14/20 07:02 Calcium 8.2 mg/dL (8.5-10.3) L 11/14/20 07:02 Magnesium 2.1 mg/dL (1.7-2.8) 11/13/20 10:10 Total Bilirubin 1.3 mg/dL (0.2-1.0) H 11/14/20 07:02 Direct Bilirubin 0.5 mg/dL (0.1-0.5) 11/14/20 07:02 GGT 1608 IU/L (8-55) H 11/14/20 07:02 AST 150 IU/L (10-42) H 11/14/20 07:02 ALT 65 IU/L (10-60) H 11/14/20 07:02 Alkaline Phosphatase 164 IU/L (42-121) H 11/14/20 07:02 Total Creatine Kinase 977 IU/L (22-269) H 11/14/20 07:02 Troponin I High Sens 15.1 ng/L (2.3-19.7) 11/13/20 10:10 Total Protein 6.7 g/dL (6.7-8.2) 11/14/20 07:02 Albumin 3.0 g/dL (3.2-5.5) L 11/14/20 07:02 Globulin 3.7 g/dL (2.1-4.2) 11/14/20 07:02 Albumin/Globulin Ratio 0.8 (1.0-2.2) L 11/13/20 10:10 Lipase 58 U/L (22-51) H 11/13/20 10:10 Vitamin B12 246 pg/mL (180-914) 11/14/20 07:02 Folate 18.06 ng/mL (5.90 - >24.8) 11/14/20 07:02 TSH 2.46 uIU/mL (0.34-5.60) 11/13/20 12:22 Cortisol 18.5 ug/dL 11/13/20 12:22 Nasal Adenovirus (PCR) NOT DETECTED 11/13/20 14:00 Nasal B. parapertussis DNA (PCR) NOT DETECTED 11/13/20 14:00 Nasal Coronavir 229E PCR NOT DETECTED 11/13/20 14:00 Nasal Coronavir HKU1 PCR NOT DETECTED 11/13/20 14:00 Nasal Coronavir NL63 PCR NOT DETECTED 11/13/20 14:00 Nasal Coronavir OC43 PCR NOT DETECTED 11/13/20 14:00 Nasal Enterovir/Rhinovir PCR NOT DETECTED 11/13/20 14:00 Nasal Influenza B PCR NOT DETECTED 11/13/20 14:00 Nasal Influenza A PCR NOT DETECTED 11/13/20 14:00 Nasal Parainfluen 1 PCR NOT DETECTED 11/13/20 14:00 Nasal Parainfluen 2 PCR NOT DETECTED 11/13/20 14:00 Nasal Parainfluen 3 PCR NOT DETECTED 11/13/20 14:00 Nasal Parainfluen 4 PCR NOT DETECTED 11/13/20 14:00 Nasal RSV (PCR) NOT DETECTED 11/13/20 14:00 Nasal B.pertussis DNA PCR NOT DETECTED 11/13/20 14:00 Nasal C.pneumoniae (PCR) NOT DETECTED 11/13/20 14:00 Natan Human Metapneumo PCR NOT DETECTED 11/13/20 14:00 Nasal M.pneumoniae (PCR) NOT DETECTED 11/13/20 14:00 Nasal SARS-CoV-2 (PCR) NOT DETECTED 11/13/20 14:00 Stl C. diff Tox B Gene POSITIVE (NEGATIVE) A* 11/13/20 20:00 - Procedures Procedures: Procedures EXCISION OF SIGMOID COLON, ENDO (05/05/20)
[2020-11-14] MEDS: ATORVASTATIN 40 MG TABLET PO SCH (20:44)
[2020-11-15] MEDS: NS W/20 MEQ KCL 1,000 ML IV SCH ×3 (02:06→17:47)
[2020-11-15] MEDS: SODIUM CHLORIDE FLUSH 0.9% 10 ML SYRINGE IVP SCH ×3 (02:18→16:56)
[2020-11-15 07:01] LABS: BASOPHILS % (AUTO) 0.5 %; EOSINOPHILS % (AUTO) 0.5 %; HCT - HEMATOCRIT 23.1 % (42.0-52.0); HGB - HEMOGLOBIN 7.9 g/dL (14.0-18.0); LYMPHOCYTES # (AUTO) 1.5 10^3/uL (1.5-3.5); LYMPHOCYTES % (AUTO) 27.8 %; MEAN CORPUSCULAR HEMOGLOBIN 38.9 pg (27.0-31.0); MEAN CORPUSCULAR HGB CONC 34.2 g/dL (32.0-36.0); MEAN CORPUSCULAR VOLUME 113.8 fL (80.0-94.0); MONOCYTES # (AUTO) 0.2 10^3/uL (0.0-1.0); MONOCYTES % (AUTO) 4.2 %; NEUTROPHILS # (AUTO) 3.6 10^3/uL (1.5-6.6); NEUTROPHILS % (AUTO) 66.5 %; PLT - PLATELET COUNT 77 10^3/uL (130-450); RED BLOOD COUNT 2.03 10^6/uL (4.70-6.10); WHITE BLOOD COUNT 5.5 x10^3/uL (4.8-10.8)
[2020-11-15 07:10] LABS: SLIDE REVIEW? Indicated
[2020-11-15 07:20] LABS: ALBUMIN 3.1 g/dL (3.2-5.5); BILIRUBIN,DIRECT 0.3 mg/dL (0.1-0.5); BILIRUBIN,TOTAL 1.3 mg/dL (0.2-1.0); CALCIUM 8.4 mg/dL (8.5-10.3); CREATININE 1.3 mg/dL (0.6-1.2); POTASSIUM 3.3 mmol/L (3.5-5.0); TOTAL PROTEIN 6.6 g/dL (6.7-8.2)
[2020-11-15 07:32] LABS: PLATELET ESTIMATE, MANUAL DECREASED (<130,000) (NORMAL); PLATELET MORPHOLOGY NORMAL APPEARANCE (NORMAL)
[2020-11-15] MEDS: SACCHAROMYCES BOULARDII 250 MG CAPSULE PO SCH ×2 (07:39→16:56)
[2020-11-15] MEDS: VANCOMYCIN 125 MG CAPSULE PO SCH ×4 (08:30→21:20)
[2020-11-15] MEDS: PRENATAL VITAMIN TABLET PO SCH (08:30)
[2020-11-15] MEDS: THIAMINE 100 MG TABLET PO SCH (08:30)
[2020-11-15] MEDS: ASPIRIN EC 81 MG TABLET PO SCH (08:30)
[2020-11-15] MEDS: NICOTINE 21 MG PATCH TOP SCH (08:30)
[2020-11-15] MEDS: gemfibroziL 600 MG TABLET PO SCH (08:30)
[2020-11-15] MEDS: POTASSIUM CHLORIDE 20 MEQ TABLET PO SCH (12:07)
--- NOTE | 2020-11-15 15:19 | PROVIDER PROGRESS NOTE ---
Assessment/Plan - Problem List (1) C. difficile diarrhea Assessment/Plan: He is getting p.o. Vanco and as needed Imodium. He will be discharged with several more days of oral vancomycin (2) Elevated LFTs Assessment/Plan: Improving as he is now about 6 days out from his last drink of alcohol. Yesterday we had a long discussion about alcoholic hepatitis and he has a plan to stop drinking alcohol completely said He is on thiamine and multivitamin replacements (3) Alcohol abuse Assessment/Plan: Yesterday we had a long discussion about alcoholic hepatitis and he admitted that he was drinking excessively and states he plans to stop drinking alcohol completely He is on thiamine and multivitamin replacements (4) Acute renal insufficiency Assessment/Plan: There is daily slow improvement in his creatinine. Continue with IV hydration. Avoid nephrotoxins. Follow BMP daily (5) Rhabdomyolysis Assessment/Plan: This was likely caused by his recurrent falls (when he thought his balance was off), that were bad enough to cause multiple bruises There is daily slow improvement in his total serum CK. Continue with IV fluids. Follow CK daily. Plan discharge soon, poss tomorrow (6) Falls Assessment/Plan: He has recurrent falls (when he thought his balance was off), that were bad enough to cause multiple bruises. His cerebellar exam from PT was normal. He probably went through withdrawal and was ataxic then. (7) Hyponatremia Assessment/Plan: This was also consistent with his alcohol abuse. It is improving with IV saline. Follow BMP daily (8) Hypokalemia Assessment/Plan: This is also consistent with poor nutritional intake and excessive alcohol intake. Potassium is improving with aggressive replacement Follow BMP (9) History of CVA with residual deficit Assessment/Plan: As per history. He is continuing on his aspirin and cholesterol meds (10) Hx of essential hypertension Assessment/Plan: He came in hypotensive, from volume depletion. His home med of Lisinopril/HCTZ is on hold due to CRUZITO and volume depletion causing low blood pressure. He will not be discharged on the same blood pressure med because of the above. We will probably start amlodipine. This was discussed with the patient yesterday and today (11) Hypotension Assessment/Plan: Resolved with IV hydration and stopping his home med of Lisinopril/HCTZ (12) Acute ataxia Assessment/Plan: \Resolved At yesterday's physical therapy evaluation he had no ataxia whatsoever, and the PT exam was normal and PTherapist has signed off his case I suspect that he was ataxic during alcohol withdrawal - Current Meds Current Meds: Current Medications Generic Name Dose Route Start Last Admin Trade Name Steve PRN Reason Stop Dose Admin Aspirin 81 mg 11/15/20 09:00 11/15/20 08:30 Aspirin Ec 81 Mg Tablet PO 81 mg DAILY LIZBETH Administration Atorvastatin Calcium 80 mg 11/14/20 21:00 11/14/20 20:44 Atorvastatin 40 Mg Tablet PO 80 mg QPM LIZBETH Administration Gemfibrozil 600 mg 11/15/20 09:00 11/15/20 08:30 Gemfibrozil 600 Mg Tablet PO 600 mg DAILY LIZBETH Administration Potassium Chloride/Sodium Chloride 1,000 mls @ 125 mls/hr 11/14/20 09:00 11/15/20 10:12 Normal Saline 0.9% W/20 Meq Kcl IV 125 mls/hr .Q8H LIZBETH Administration Nicotine 1 patch 11/13/20 14:56 11/15/20 08:30 Nicotine 21 Mg Patch TOP 1 patch DAILY LIZBETH Administration Potassium Chloride 20 meq 11/15/20 12:00 11/15/20 12:07 Potassium Chloride 20 Meq Tablet PO 20 meq DAILYWM LIZBETH Administration Multivit/Folic Acid/Iron 1 tab 11/14/20 09:00 11/15/20 08:30 Vitamin Tablet PO 1 tab DAILY LIZBETH Administration Saccharomyces Boulardii 250 mg 11/15/20 08:00 11/15/20 07:39 Saccharomyces Boulardii 250 Mg Capsule PO 250 mg BIDWM LIZBETH Administration Sodium Chloride 10 ml 11/13/20 17:00 11/15/20 08:30 Sodium Chloride Flush 0.9% 10 Ml Syringe IVP 10 ml 0100,0900,1700 LIZBETH Administration Thiamine HCl 100 mg 11/14/20 09:00 11/15/20 08:30 Thiamine 100 Mg Tablet PO 100 mg DAILY LIZBETH Administration Vancomycin HCl 125 mg 11/13/20 22:10 11/15/20 13:07 Vancomycin 125 Mg Capsule PO 125 mg QID LIZBETH Administration - Lab Result Fish Bone Diagrams: 11/15/20 06:47 11/15/20 06:47 - Additional Planning My Orders: My Active Orders 11/14/20 21:00 Atorvastatin [Lipitor] 80 mg PO QPM 11/15/20 09:00 Aspirin EC [Ecotrin] 81 mg PO DAILY gemfibroziL [Lopid] 600 mg PO DAILY 11/15/20 12:00 Potassium Chloride [K-Dur] 20 meq PO DAILYWM 11/15/20 16:00 POTASSIUM [CHEM] Timed 11/16/20 05:00 CK- CREATINE KINASE [CHEM] DAILYLAB LIVER PANEL [CHEM] DAILYLAB 11/17/20 05:00 CK- CREATINE KINASE [CHEM] DAILYLAB Subjective - Subjective Patient Reports: Feeling Better, Resting Comfortably, Other (Diarrhea is has resolved, he has had a formed bowel movement) Objective Vital Signs: Vital Signs - 24 hr 11/14/20 11/14/20 11/15/20 15:52 20:10 00:51 Temperature 36.9 C 37.4 C 37.0 C Heart Rate [ 95 85 94 Brachial] Respiratory 16 16 18 Rate Blood Pressure 136/86 H 132/83 H 129/77 [Right Brachial artery] O2 Saturation 99 99 96 11/15/20 11/15/20 11/15/20 05:41 08:16 13:00 Temperature 36.6 C 36.9 C Heart Rate [ 87 106 H 107 H Brachial] Respiratory 18 18 18 Rate Blood Pressure 130/85 H 130/84 H 132/84 H [Right Brachial artery] O2 Saturation 97 97 99 Oxygen O2 Source Room air I&O (Last 24 Hrs): Intake and Output Totals x24h 11/13/20 11/14/20 11/15/20 23:59 23:59 23:59 Intake Total 2701.667 5385.416 2657.250 Output Total 1 Balance 2701.667 5384.416 2657.250 General: Alert, Oriented x3 HEENT: Mucous membr. moist/pink Neck: Supple, No JVD Neuro: Alert, Non Focal Respiratory: No respiratory distress Abdomen: Soft, No tenderness Extremities: No edema, Other (Multiple bruises) - Results Results: Laboratory Results WBC 5.5 x10^3/uL (4.8-10.8) 11/15/20 06:47 RBC 2.03 10^6/uL (4.70-6.10) L 11/15/20 06:47 Hgb 7.9 g/dL (14.0-18.0) L 11/15/20 06:47 Hct 23.1 % (42.0-52.0) L 11/15/20 06:47 MCV 113.8 fL (80.0-94.0) H 11/15/20 06:47 MCH 38.9 pg (27.0-31.0) H 11/15/20 06:47 MCHC 34.2 g/dL (32.0-36.0) 11/15/20 06:47 RDW 14.0 % (12.0-15.0) 11/15/20 06:47 Plt Count 77 10^3/uL (130-450) L 11/15/20 06:47 MPV 10.0 fL (7.4-11.4) 11/15/20 06:47 Neut # (Auto) 3.6 10^3/uL (1.5-6.6) 11/15/20 06:47 Lymph # (Auto) 1.5 10^3/uL (1.5-3.5) 11/15/20 06:47 Pickett # (Auto) 0.2 10^3/uL (0.0-1.0) 11/15/20 06:47 Eos # (Auto) 0.0 10^3/uL (0.0-0.7) 11/15/20 06:47 Baso # (Auto) 0.0 10^3/uL (0.0-0.1) 11/15/20 06:47 Absolute Nucleated RBC 0.00 x10^3/uL 11/15/20 06:47 Nucleated RBC % 0.0 /100WBC 11/15/20 06:47 Manual Slide Review Indicated 11/15/20 06:47 Platelet Estimate DECREASED (<130,000) (NORMAL) 11/15/20 06:47 Platelet Morphology NORMAL APPEARANCE (NORMAL) 11/15/20 06:47 RBC Morph Micro Appear 1+ ANISOCYTOSIS (NORMAL) 1+ MACROCYTOSIS (NORMAL) 1+ HYPOCHROMASIA (NORMAL) 11/15/20 06:47 RBC Morph Micro Appear 1+ ANISOCYTOSIS (NORMAL) 1+ MACROCYTOSIS (NORMAL) 1+ HYPOCHROMASIA (NORMAL) 11/15/20 06:47 RBC Morph Micro Appear 1+ ANISOCYTOSIS (NORMAL) 1+ MACROCYTOSIS (NORMAL) 1+ HYPOCHROMASIA (NORMAL) 11/15/20 06:47 PT 13.5 secs (9.9-12.6) H 11/13/20 10:32 INR 1.2 (0.8-1.2) 11/13/20 10:32 APTT 31.6 secs (24.9-33.3) 11/13/20 10:32 Sodium 135 mmol/L (135-145) 11/15/20 06:47 Potassium 3.3 mmol/L (3.5-5.0) L 11/15/20 06:47 Chloride 103 mmol/L (101-111) 11/15/20 06:47 Carbon Dioxide 21 mmol/L (21-32) 11/15/20 06:47 Anion Gap 11.0 (6-13) 11/15/20 06:47 BUN 16 mg/dL (6-20) 11/15/20 06:47 Creatinine 1.3 mg/dL (0.6-1.2) H 11/15/20 06:47 Estimated GFR (MDRD) 58 (>89) L 11/15/20 06:47 Glucose 130 mg/dL (70-100) H 11/15/20 06:47 Calcium 8.4 mg/dL (8.5-10.3) L 11/15/20 06:47 Magnesium 2.1 mg/dL (1.7-2.8) 11/13/20 10:10 Total Bilirubin 1.3 mg/dL (0.2-1.0) H 11/15/20 06:47 Direct Bilirubin 0.3 mg/dL (0.1-0.5) 11/15/20 06:47 GGT 1608 IU/L (8-55) H 11/14/20 07:02 AST 100 IU/L (10-42) H 11/15/20 06:47 ALT 53 IU/L (10-60) 11/15/20 06:47 Alkaline Phosphatase 132 IU/L (42-121) H 11/15/20 06:47 Total Creatine Kinase 657 IU/L (22-269) H 11/15/20 06:47 Troponin I High Sens 15.1 ng/L (2.3-19.7) 11/13/20 10:10 Total Protein 6.6 g/dL (6.7-8.2) L 11/15/20 06:47 Albumin 3.1 g/dL (3.2-5.5) L 11/15/20 06:47 Globulin 3.5 g/dL (2.1-4.2) 11/15/20 06:47 Albumin/Globulin Ratio 0.8 (1.0-2.2) L 11/13/20 10:10 Lipase 58 U/L (22-51) H 11/13/20 10:10 Vitamin B12 246 pg/mL (180-914) 11/14/20 07:02 Folate 18.06 ng/mL (5.90 - >24.8) 11/14/20 07:02 TSH 2.46 uIU/mL (0.34-5.60) 11/13/20 12:22 Cortisol 18.5 ug/dL 11/13/20 12:22 Nasal Adenovirus (PCR) NOT DETECTED 11/13/20 14:00 Nasal B. parapertussis DNA (PCR) NOT DETECTED 11/13/20 14:00 Nasal Coronavir 229E PCR NOT DETECTED 11/13/20 14:00 Nasal Coronavir HKU1 PCR NOT DETECTED 11/13/20 14:00 Nasal Coronavir NL63 PCR NOT DETECTED 11/13/20 14:00 Nasal Coronavir OC43 PCR NOT DETECTED 11/13/20 14:00 Nasal Enterovir/Rhinovir PCR NOT DETECTED 11/13/20 14:00 Nasal Influenza B PCR NOT DETECTED 11/13/20 14:00 Nasal Influenza A PCR NOT DETECTED 11/13/20 14:00 Nasal Parainfluen 1 PCR NOT DETECTED 11/13/20 14:00 Nasal Parainfluen 2 PCR NOT DETECTED 11/13/20 14:00 Nasal Parainfluen 3 PCR NOT DETECTED 11/13/20 14:00 Nasal Parainfluen 4 PCR NOT DETECTED 11/13/20 14:00 Nasal RSV (PCR) NOT DETECTED 11/13/20 14:00 Nasal B.pertussis DNA PCR NOT DETECTED 11/13/20 14:00 Nasal C.pneumoniae (PCR) NOT DETECTED 11/13/20 14:00 Natan Human Metapneumo PCR NOT DETECTED 11/13/20 14:00 Nasal M.pneumoniae (PCR) NOT DETECTED 11/13/20 14:00 Nasal SARS-CoV-2 (PCR) NOT DETECTED 11/13/20 14:00 Stl C. diff Tox B Gene POSITIVE (NEGATIVE) A* 11/13/20 20:00 - Procedures Procedures: Procedures EXCISION OF SIGMOID COLON, ENDO (05/05/20)
[2020-11-15] MEDS: ATORVASTATIN 40 MG TABLET PO SCH (21:20)
[2020-11-16] MEDS: NS W/20 MEQ KCL 1,000 ML IV SCH (01:27)
[2020-11-16] MEDS: SODIUM CHLORIDE FLUSH 0.9% 10 ML SYRINGE IVP SCH ×2 (01:28→08:44)
[2020-11-16 08:32] LABS: BASOPHILS % (AUTO) 0.7 %; EOSINOPHILS % (AUTO) 0.7 %; HGB - HEMOGLOBIN 7.4 g/dL (14.0-18.0); LYMPHOCYTES # (AUTO) 1.3 10^3/uL (1.5-3.5); LYMPHOCYTES % (AUTO) 21.8 %; MEAN CORPUSCULAR HEMOGLOBIN 39.2 pg (27.0-31.0); MEAN CORPUSCULAR HGB CONC 33.6 g/dL (32.0-36.0); MEAN CORPUSCULAR VOLUME 116.4 fL (80.0-94.0); MEAN PLATELET VOLUME 10.3 fL (7.4-11.4); MONOCYTES # (AUTO) 0.4 10^3/uL (0.0-1.0); MONOCYTES % (AUTO) 6.5 %; NEUTROPHILS # (AUTO) 4.2 10^3/uL (1.5-6.6); NEUTROPHILS % (AUTO) 68.8 %; PLT - PLATELET COUNT 88 10^3/uL (130-450); RED BLOOD COUNT 1.89 10^6/uL (4.70-6.10); RED CELL DISTRIBUTION WIDTH 14.2 % (12.0-15.0); WHITE BLOOD COUNT 6.1 x10^3/uL (4.8-10.8)
[2020-11-16] MEDS: SACCHAROMYCES BOULARDII 250 MG CAPSULE PO SCH (08:39)
[2020-11-16] MEDS: POTASSIUM CHLORIDE 20 MEQ TABLET PO SCH (08:40)
[2020-11-16] MEDS: VANCOMYCIN 125 MG CAPSULE PO SCH ×2 (08:41→13:03)
[2020-11-16] MEDS: PRENATAL VITAMIN TABLET PO SCH (08:41)
[2020-11-16] MEDS: NICOTINE 21 MG PATCH TOP SCH (08:41)
[2020-11-16] MEDS: ASPIRIN EC 81 MG TABLET PO SCH (08:41)
[2020-11-16] MEDS: THIAMINE 100 MG TABLET PO SCH (08:41)
[2020-11-16] MEDS: gemfibroziL 600 MG TABLET PO SCH (08:41)
[2020-11-16 09:00] LABS: ALBUMIN 3.1 g/dL (3.2-5.5); BILIRUBIN,DIRECT 0.3 mg/dL (0.1-0.5); BILIRUBIN,TOTAL 0.9 mg/dL (0.2-1.0); CALCIUM 8.4 mg/dL (8.5-10.3); CREATININE 1.1 mg/dL (0.6-1.2); POTASSIUM 3.5 mmol/L (3.5-5.0); TOTAL PROTEIN 6.5 g/dL (6.7-8.2)
[2020-11-16] MEDS ORDERED: FERROUS GLUCONATE 324 MG TABLET PO SCH (09:24)
--- NOTE | 2020-11-16 09:29 | Discharge Plan ---
Discharge Plan Problem Reviewed?: Yes Disposition: Home, Self Care Condition: Stable Prescriptions: Ferrous Gluconate [Fergon] 324 mg PO DAILY #30 tablet Saccharomyces Boulardii [Florastor] 250 mg PO DAILY #6 cap Multivitamin 1 each PO DAILY #30 tablet Vancomycin [Vancocin] 125 mg PO QID #24 cap Thiamine [Vitamin B-1] 100 mg PO DAILY #30 tablet Diet: Low Sodium Activity Restrictions: Activity as Tolerated Shower Restrictions: No Driving Restrictions: No Instruction Topics: Rhabdomyolysis, Alcoholism, Clostridium Difficile Infec Health Concerns: You were admitted because of poor balance, falling and bruising yourself and we found you to be very dehydrated which had affected your kidney function. Brain imaging did not show a new stroke. The falling and bruising caused muscle breakdown, called rhabdomyolysis. Your liver function tests were excessively elevated, which we determined is from the amount of alcohol you drink. Your abdominal discomfort, which became diarrhea, has been diagnosed as C. difficile diarrhea and you are being discharged home to take several more days of oral Vancomycin antibiotic for this, plus a probiotic. DO NOT TAKE YOUR LISINOPRIL/HCTZ MEDICATION ANY LONGER, it added to the problems of dehydration and kidney failure. Your kidney test is not yet entirely normal, you need to continue to hydrate with water, juices, electrolyte-containing fluids like propel, Pedialyte. You are anemic and new Iron tablets and a daily multivitamin and daily Thiamin vitamin have been ordered for you. All your new prescriptions were lectronically sent to your pharmacy. You do not need a blood pressure medication resumed yet. Your blood pressure is not elevated. By remaining off of alcohol, you may continue to have a normal blood pressure now. You may resume your daily aspirin and cholesterol and triglyceride medications. Plan of Treatment: As above. Care Goals: Improvement in symptoms and stabilization are the goals. Assessment: The patient understands and is agreeable with the plan. Additional Instructions or Follow Up instructions: Please see your Primary Care Provider in 1 to 2 weeks for a hospital follow-up appointment visit. If you have new or worsening symptoms, call your PCP for advice or come to the ER . No Smoking: If you smoke, Please STOP! Call for help. Follow-up with: Cat Marks PA-C [Primary Care Provider] -
--- NOTE | 2020-11-16 10:41 | DISCHARGE SUMMARY ---
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 He lives alone and has noticed being "off balance" for about 4 days which has caused him to fall several times, to the point of having bruises. He does not feel muscular weakness and is able to stand. His finger and eye coordination is okay. He got worsening balance symptoms and remained in bed for 1 entire day, not eating or drinking but he continued to take his blood pressure meds. Today he felt even worse and called 911 and was found to have a blood pressure of 79 systolic at the scene, however he was awake and alert. In the ER he was found to have blood pressure of 90 systolic which improved to 110 then 120 systolic after IV fluids. He had no focal neurologic signs but his gait was not tested in the ED. The CT of the head showed no stroke, bleed or mass. His labs however were quite remarkable: Creatinine 3.5 (usually 1.0), potassium 2.5, sodium 128, CK 1500. The patient is being admitted to inpatient status for treating CRUZITO, dehydration, rhabdomyolysis from recurrent falls, and acute ataxia, a stroke-like symptom. - HOSPITAL COURSE Hospital Course: (1) Acute ataxia He underwent an MRI that showed the old thalamic stroke, no acute findings. More history was gleaned the following day, when he felt better after iv hydration was started: the patient drinks 4-6 alcoholic drinks per day, but stopped 5 days previously due to abdominal cramps, he cannot remember those days clearly (and may have been going through alcohol withdrawal). On the second day of this admission, he was evaluated by PT and OT who found he had no ataxia whatsoever. I suspect that he had poor balance and was falling during alcohol withdrawal and from orthostasis. (2) Hypotension This resolved with IV hydration and stopping his home med of Lisinopril/HCTZ. His TSH and morning Cortisol levels were normal. (3) Acute renal insufficiency He had BUN/creat of 38/3.5 at admission and had daily slow improvement with IV h ydration, which was continued until discharge, when his BUN/creat were 10/1.1. (4) Falls He reported recurrent falls (and thought his balance was off), which were bad enough to cause multiple bruises. His cerebellar exam from PT was normal. He probably went through withdrawal and was probably orthostatic, causing repeat falls. (5) Rhabdomyolysis This was likely caused by his recurrent falls, causing multiple bruises. He received iv hydration. He had daily slow improvement in his total serum CK from 1517>> 977>> 657>> 588 was the last one checked. He was advised to stay well hydrated, not to resume Lisinopril/HCTZ, and to have hospital follow up with his PCP soon after discharge. (6) C. difficile diarrhea On the night of admission, he had watery diarrhea, which was sent for C. diff testing. It was C. diff (+). An abdominal flat plate reported an enlarged liver. He had not taken any recent antibiotics or been exposed to anyone with diarrhea. Then he remembered recent explosive diarrhea from his cat. (We looked up that cats can have C. diff diarrhea). He remembered having abdominal cramps for several days, which had been so bad he stopped drinking daily alcohol. Contact isolation was ordered and he was started on p.o. Vanco and was discharged to take several more days of oral Vancomycin with Florastor. His diarrhea improved while here. (7) Hyponatremia This was hypovolemic hyponatremia and was also consistent with his alcohol abuse. His admission serum sodium of 128 corrected with IV saline, and was 137 at discharge. (8) Hypokalemia This was also consistent with poor nutritional intake and his HCTZ use. He received aggressive iv replacement. (9) Elevated LFTs His admission LFTs were elevated and a GGT was checked and was 1608, which led to uncovering his alcohol history. The LFTs improved off alcohol. AST improved from 171>> 75, ALT improved from 71>> 47, total bili improved from 1.5>> 0.9. (10) Alcohol abuse We discussed his elevated LFTs, high GGT and liver enlargement on XRay. He admitted that he was drinking excessively and decided to stop drinking alcohol completely. consult provided him with resources. He was put on oral ryan ine and multivitamin replacements and discharged with these prescribed. (11) History of CVA with residual deficit As per history, it caused monocular blindness. We continued his daily aspirin and cholesterol meds (12) Hx of essential hypertension He came in hypotensive, from volume depletion and from taking his BP meds. His home med of Lisinopril/HCTZ was put on hold due to CRUZITO and having low blood pressure. At discharge, no BP meds were resumed due to normal BPs of 120- 130's/80's and since he needed more hydration for the elevated CK. (13) Anemia Hgb at admission was 11.2 and at discharge was 7.4. This was partly hemodilutional, since he was 14 L (+) from getting iv hydration. His B12 and Folate levels were normal. He was started on oral Iron replacement at discharge. - ALLERGIES Allergies/Adverse Reactions: Allergies Allergy/AdvReac Type Severity Reaction Status Date / Time Penicillins Allergy Unknown facial Verified 11/13/20 10:05 swelling - MEDICATIONS Home Medications: Ambulatory Orders Medication Instructions Recorded Confirmed Aspirin [Adult Aspirin Regimen] 81 mg PO DAILY #30 tablet. 08/22/19 11/13/20 Atorvastatin Calcium 80 mg PO DAILY PM #30 tablet 08/22/19 11/13/20 gemfibroziL [Lopid] 600 mg PO DAILY #30 tablet 08/23/19 11/13/20 Ferrous Gluconate [Fergon] 324 mg PO DAILY #30 tablet 11/16/20 Multivitamin 1 each PO DAILY #30 tablet 11/16/20 Saccharomyces Boulardii [Florastor] 250 mg PO DAILY #6 cap 11/16/20 Thiamine [Vitamin B-1] 100 mg PO DAILY #30 tablet 11/16/20 Vancomycin [Vancocin] 125 mg PO QID #24 cap 11/16/20 - PHYSICAL EXAM AT DISCHARGE General Appearance: positive: No acute distress, Alert Eyes Bilateral: positive: Normal inspection, EOMI ENT: positive: ENT inspection nml, No signs of dehydration Neck: positive: Nml inspection, No JVD Respiratory: positive: No respiratory distress, Breath sounds nml Cardiovascular: positive: Regular rate & rhythm, No murmur Abdomen: positive: Non-tender, Nml bowel sounds, No distention Skin: positive: Warm, Dry Extremities: positive: Non-tender, No pedal edema Neurologic/Psychiatric: positive: Oriented x3 (Non-focal except blindness in one eye.) - LABS Result Diagrams: 11/16/20 07:56 11/16/20 07:56 - DIAGNOSTIC IMAGING Diagnostic Imaging Results: Final report reviewed - FOLLOW UP Follow Up: See PCP for a hospital follow-up visit soon. - TIME SPENT Time Spent in Discharge (Minutes): 60
[2020-11-16 13:12] VITALS: BP 129/85
== END 2020-11-16 13:34 | disposition home or self-care (01) | DRG 683 ==
LOC: EDUNIT# → ED 09:54 → MS2 13:09
PROVIDERS: ADMIT Internal Medicine; ATTEND Internal Medicine
DX: N17.9 Acute kidney failure, unspecified (principal); M62.82 Rhabdomyolysis; A04.72 Enterocolitis due to Clostridium difficile, not specified as recurrent; E87.1 Hypo-osmolality and hyponatremia; Z91.81 History of falling; E86.0 Dehydration; F10.10 Alcohol abuse, uncomplicated; I69.998 Other sequelae following unspecified cerebrovascular disease; I10 Essential (primary) hypertension; H54.61 Unqualified visual loss, right eye, normal vision left eye; R27.8 Other lack of coordination; F17.210 Nicotine dependence, cigarettes, uncomplicated; I95.9 Hypotension, unspecified; E87.6 Hypokalemia; D64.9 Anemia, unspecified; K70.10 Alcoholic hepatitis without ascites; Z79.82 Long term (current) use of aspirin; Z79.899 Other long term (current) drug therapy; S40.022A Contusion of left upper arm, initial encounter; S40.021A Contusion of right upper arm, initial encounter; S80.12XA Contusion of left lower leg, initial encounter; S80.11XA Contusion of right lower leg, initial encounter; W18.30XA Fall on same level, unspecified, initial encounter; Y92.9 Unspecified place or not applicable; Z20.822 Contact with and (suspected) exposure to COVID-19
CPT/HCPCS: 0202U; 36415; 70450; 70544; 70551; 71045; 74018; 80048; 80053; 80076; 82533; 82550; 82607; 82746; 82977; 83519; 83690; 83735; 84132; 84443; 84484; 85025; 85610; 85730; 87493; 93005; 96365; 97162; 99284; 99285; A9270; J8499

== ENCOUNTER 2020-12-03 07:15 | Outpatient (CLI) | payer BC, MEDICAID ==
[2020-12-03 12:32] LABS: ABSOLUTE RETICS # AUTO 0.135 10^6/uL (0.020-0.110); BASOPHILS % (AUTO) 1.1 %; EOSINOPHILS % (AUTO) 3.2 %; HCT - HEMATOCRIT 34.1 % (42.0-52.0); HGB - HEMOGLOBIN 10.7 g/dL (14.0-18.0); LYMPHOCYTES % (AUTO) 22.3 %; MEAN CORPUSCULAR HEMOGLOBIN 37.2 pg (27.0-31.0); MEAN CORPUSCULAR HGB CONC 31.4 g/dL (32.0-36.0); MEAN CORPUSCULAR VOLUME 118.4 fL (80.0-94.0); MEAN PLATELET VOLUME 10.2 fL (7.4-11.4); MONOCYTES % (AUTO) 6.6 %; NEUTROPHILS % (AUTO) 65.8 %; PLT - PLATELET COUNT 362 10^3/uL (130-450); RED BLOOD COUNT 2.88 10^6/uL (4.70-6.10); RED CELL DISTRIBUTION WIDTH 14.7 % (12.0-15.0)
[2020-12-03 12:37] LABS: THYROID STIMULATING HORMONE 3.49 uIU/mL (0.34-5.60)
[2020-12-03 12:38] LABS: % IRON SATURATION 17 % (20-50); ALBUMIN 3.9 g/dL (3.2-5.5); ALKALINE PHOSPHATASE 62 IU/L (42-121); ALT ALANINE AMINOTRANSFERASE 16 IU/L (10-60); AST ASPARTATE AMINOTRANSFERASE 23 IU/L (10-42); BILIRUBIN,TOTAL 0.4 mg/dL (0.2-1.0); BUN - BLOOD UREA NITROGEN 9 mg/dL (6-20); CALCIUM 9.9 mg/dL (8.5-10.3); CARBON DIOXIDE - CO2 21 mmol/L (21-32); CHLORIDE 108 mmol/L (101-111); CHOL/HDL RATIO 3.1 (<5.0); CHOLESTEROL 108 mg/dL; CK- CREATINE KINASE 28 IU/L (22-269); CREATININE 0.8 mg/dL (0.6-1.2); GFR - MDRD 102 (>89); GLUCOSE 112 mg/dL (70-100); HDL CHOLESTEROL 35 mg/dL; IRON 63 ug/dL (45-182); LDL CHOLESTEROL,CALCULATED 52 mg/dL; LDL/HDL RATIO 1.5 (<3.6); POTASSIUM 4.3 mmol/L (3.5-5.0); SODIUM 139 mmol/L (135-145); TOTAL IRON BINDING CAPACITY 367 ug/dL (250-450); TOTAL PROTEIN 7.8 g/dL (6.7-8.2); TRANSFERRIN 262 mg/dL (180-329); TRIGLYCERIDES 104 mg/dL; VLDL CHOLESTEROL 21 mg/dL
[2020-12-03 12:39] LABS: SLIDE REVIEW? Indicated
[2020-12-03 13:26] LABS: FOLATE > 49.60 ng/mL (5.90 - >24.8)
[2020-12-03 13:31] LABS: ABNORMAL LYMPHS % (MANUAL) 0 %
[2020-12-03 13:37] LABS: BAND NEUTROPHILS % (MANUAL) 2 %; EOSINOPHILS # (MANUAL) 0.4 10^3/uL (0-0.7); LYMPHOCYTES # (MANUAL) 2.2 10^3/uL (1.5-3.5); LYMPHOCYTES % (MANUAL) 22 %; METAMYELOCYTES % (MANUAL) 1 %; MONOCYTES # (MANUAL) 0.4 10^3/uL (0.0-1.0); MYELOCYTES % (MANUAL) 1 %; NEUTROPHILS # (MANUAL) 6.8 10^3/uL (1.5-6.6)
[2020-12-03 13:42] LABS: DIFFERENTIAL COMMENT MANUAL DIFFERENTIAL; PLATELET ESTIMATE, MANUAL NORMAL (130-450,000) (NORMAL); PLATELET MORPHOLOGY NORMAL APPEARANCE (NORMAL); WBC MORPHOLOGY (MULTIPLE) NORMAL APPEARANCE (NORMAL)
== END 2020-12-03 23:59 | disposition home or self-care (01) ==
LOC: LAB.WCP 07:15
PROVIDERS: ATTEND Family Medicine
DX: I10 Essential (primary) hypertension (principal); D64.9 Anemia, unspecified; K52.9 Noninfective gastroenteritis and colitis, unspecified; R74.8 Abnormal levels of other serum enzymes; I63.9 Cerebral infarction, unspecified; M62.82 Rhabdomyolysis
CPT/HCPCS: 36415; 80053; 80061; 82550; 82607; 82728; 82746; 83540; 83721; 84443; 84466; 85025; 85045

== ENCOUNTER 2021-01-22 08:00 | Outpatient (CLI) | payer OTHER, MEDICAID ==
[2021-01-22 12:55] LABS: ALBUMIN 4.4 g/dL (3.2-5.5); ALBUMIN/GLOBULIN RATIO 1.3 (1.0-2.2); BILIRUBIN,TOTAL 0.4 mg/dL (0.2-1.0); CALCIUM 9.7 mg/dL (8.5-10.3); CREATININE 0.6 mg/dL (0.6-1.2); POTASSIUM 3.8 mmol/L (3.5-5.0); TOTAL PROTEIN 7.7 g/dL (6.7-8.2)
[2021-01-22 13:03] LABS: BASOPHILS % (AUTO) 0.9 %; EOSINOPHILS # (AUTO) 0.1 10^3/uL (0.0-0.7); EOSINOPHILS % (AUTO) 2.4 %; HCT - HEMATOCRIT 42.2 % (42.0-52.0); HGB - HEMOGLOBIN 14.7 g/dL (14.0-18.0); LYMPHOCYTES # (AUTO) 1.7 10^3/uL (1.5-3.5); LYMPHOCYTES % (AUTO) 35.5 %; MEAN CORPUSCULAR HEMOGLOBIN 35.2 pg (27.0-31.0); MEAN CORPUSCULAR HGB CONC 34.8 g/dL (32.0-36.0); MEAN PLATELET VOLUME 9.9 fL (7.4-11.4); MONOCYTES # (AUTO) 0.5 10^3/uL (0.0-1.0); MONOCYTES % (AUTO) 10.5 %; NEUTROPHILS # (AUTO) 2.4 10^3/uL (1.5-6.6); NEUTROPHILS % (AUTO) 50.3 %; PLT - PLATELET COUNT 186 10^3/uL (130-450); RED BLOOD COUNT 4.18 10^6/uL (4.70-6.10); RED CELL DISTRIBUTION WIDTH 13.8 % (12.0-15.0); WHITE BLOOD COUNT 4.7 x10^3/uL (4.8-10.8)
[2021-01-22 14:08] LABS: FOLATE > 49.60 ng/mL (5.90 - >24.8)
== END 2021-01-22 23:55 | disposition home or self-care (01) ==
LOC: LAB.WCP 08:00
PROVIDERS: ATTEND Physician Assistant Medical
DX: I42.0 Dilated cardiomyopathy (principal); D64.9 Anemia, unspecified; Z12.5 Encounter for screening for malignant neoplasm of prostate
CPT/HCPCS: 36415; 80053; 82607; 82728; 82746; 84153; 85025

== ENCOUNTER 2021-01-24 20:19 | Emergency (ER) | payer MEDICAID, OTHER ==
[2021-01-24 20:27] VITALS: BP 125/93
[2021-01-24] MEDS ORDERED: SODIUM CHLORIDE 0.9% 500 ML IV STA (20:42)
--- NOTE | 2021-01-24 21:06 | ED Physician Documentation ---
History of Present Illness - Stated complaint Stated Complaint: "ORGAN FAILURE" - Chief complaint Chief Complaint: General - History obtained from History obtained from: Patient - Additonal information Additional information: 50-year-old man with past medical history of alcohol abuse, rhabdomyolysis requiring hospitalization in November p/w generalized malaise starting this evening and difficulty with gait. patient endorses having "a couple of drinks" and then becoming worried he was unsteady and called his elderly father to drive him to the emergency department. patient states during history "I should probably stop drinking" but then says "I'm just a social drinker". Patient lives alone and states he fell a couple days ago, hitting R shoulder but does not have pain anywhere. Feels safe at home. He is concerned he may have organ failure like when he was hospitalized in November. Review of Systems Ten Systems: 10 systems reviewed and negative Constitutional: reports: Fatigue PD PAST MEDICAL HISTORY - Past Medical History Cardiovascular: Hypertension, High cholesterol Respiratory: None Neuro: None, CVA Endocrine/Autoimmune: None GI: None : None HEENT: Chronic vision loss, Other Psych: None Musculoskeletal: Osteoarthritis Derm: None - Past Surgical History Past Surgical History: Yes Ortho: Arthroscopic surgery, Other - Present Medications Home Medications: Ambulatory Orders Medication Instructions Recorded Confirmed Aspirin [Adult Aspirin Regimen] 81 mg PO DAILY #30 tablet. 08/22/19 11/13/20 Atorvastatin Calcium 80 mg PO DAILY PM #30 tablet 08/22/19 11/13/20 gemfibroziL [Lopid] 600 mg PO DAILY #30 tablet 08/23/19 11/13/20 Ferrous Gluconate [Fergon] 324 mg PO DAILY #30 tablet 11/16/20 Multivitamin 1 each PO DAILY #30 tablet 11/16/20 Saccharomyces Boulardii [Florastor] 250 mg PO DAILY #6 cap 11/16/20 Thiamine [Vitamin B-1] 100 mg PO DAILY #30 tablet 11/16/20 Vancomycin [Vancocin] 125 mg PO QID #24 cap 11/16/20 - Allergies Allergies/Adverse Reactions: Allergies Allergy/AdvReac Type Severity Reaction Status Date / Time Penicillins Allergy Unknown facial Verified 01/24/21 20:23 swelling - Social History Does the pt smoke?: Yes Smoking Status: Current every day smoker - Immunizations Immunizations are current?: No - POLST Patient has POLST: No POLST Status: Full Code PD ED PE NORMAL - Vitals Vital signs reviewed: Yes - General General: Alert and oriented X 3, No acute distress, Well developed/nourished - HEENT HEENT: Atraumatic, PERRL, EOMI - Neck Neck: Supple, no meningeal sign - Cardiac Cardiac: RRR - Respiratory Respiratory: No respiratory distress, Clear bilaterally - Abdomen Abdomen: Non tender, Non distended - Derm Derm: Normal color, Warm and dry - Extremities Extremities: No deformity - Neuro Neuro: Alert and oriented X 3, No motor deficit, No sensory deficit - Psych Psych: Normal mood, Normal affect Results - Vitals Vitals: Oxygen O2 Source Room air - Labs Labs: Laboratory Tests 01/24/21 01/24/21 21:08 21:08 WBC 6.6 RBC 4.29 L Hgb 14.8 Hct 44.3 MCV 103.3 H MCH 34.5 H MCHC 33.4 RDW 14.1 Plt Count 157 MPV 9.3 Neut # (Auto) 2.7 Lymph # (Auto) 3.3 [place] # (Auto) 0.3 Eos # (Auto) 0.2 Baso # (Auto) 0.1 Absolute Nucleated RBC 0.00 Nucleated RBC % 0.0 Sodium 143 Potassium 3.8 Chloride 107 Carbon Dioxide 25 Anion Gap 11.0 BUN 8 Creatinine 0.6 Estimated GFR (MDRD) 142 Glucose 106 H Calcium 9.2 Total Bilirubin 0.3 AST 77 H ALT 49 Alkaline Phosphatase 80 Total Creatine Kinase 78 Total Protein 8.0 Albumin 4.2 Globulin 3.8 Albumin/Globulin Ratio 1.1 Lipase 43 PD MEDICAL DECISION MAKING - ED course ED course: Note that patient left before receiving his discharge papers. I was unable to discuss his results with him before he left. patient clinically sober, walking with steady gait. His father will drive him home. Departure - Departure Disposition: Home, Self Care Clinical Impression: Encounter for medical screening examination Condition: Good Instructions: ED Screening Exam Medical Nonurgent Comments: You were seen in the emergency department for medical screening. Your vital signs, physical exam, and lab work did not show any emergent findings. Please follow-up with your primary doctor this week. Return to the emergency department you have any new or worsening symptoms or other concerns. Discharge Date/Time: 01/24/21 21:49
[2021-01-24 21:18] LABS: BASOPHILS # (AUTO) 0.1 10^3/uL (0.0-0.1); BASOPHILS % (AUTO) 0.9 %; EOSINOPHILS # (AUTO) 0.2 10^3/uL (0.0-0.7); EOSINOPHILS % (AUTO) 3.3 %; HCT - HEMATOCRIT 44.3 % (42.0-52.0); HGB - HEMOGLOBIN 14.8 g/dL (14.0-18.0); LYMPHOCYTES # (AUTO) 3.3 10^3/uL (1.5-3.5); LYMPHOCYTES % (AUTO) 49.9 %; MEAN CORPUSCULAR HEMOGLOBIN 34.5 pg (27.0-31.0); MEAN CORPUSCULAR HGB CONC 33.4 g/dL (32.0-36.0); MEAN CORPUSCULAR VOLUME 103.3 fL (80.0-94.0); MEAN PLATELET VOLUME 9.3 fL (7.4-11.4); MONOCYTES # (AUTO) 0.3 10^3/uL (0.0-1.0); MONOCYTES % (AUTO) 5.2 %; NEUTROPHILS # (AUTO) 2.7 10^3/uL (1.5-6.6); NEUTROPHILS % (AUTO) 40.5 %; PLT - PLATELET COUNT 157 10^3/uL (130-450); RED BLOOD COUNT 4.29 10^6/uL (4.70-6.10); RED CELL DISTRIBUTION WIDTH 14.1 % (12.0-15.0); WHITE BLOOD COUNT 6.6 x10^3/uL (4.8-10.8)
[2021-01-24 21:28] LABS: ALBUMIN 4.2 g/dL (3.2-5.5); ALBUMIN/GLOBULIN RATIO 1.1 (1.0-2.2); BILIRUBIN,TOTAL 0.3 mg/dL (0.2-1.0); CALCIUM 9.2 mg/dL (8.5-10.3); CREATININE 0.6 mg/dL (0.6-1.2); POTASSIUM 3.8 mmol/L (3.5-5.0)
== END 2021-01-24 21:49 | disposition home or self-care (01) ==
LOC: ED 20:19
DX: Z13.9 Encounter for screening, unspecified (principal); I10 Essential (primary) hypertension; Z79.82 Long term (current) use of aspirin; F17.200 Nicotine dependence, unspecified, uncomplicated
CPT/HCPCS: 36415; 80053; 82550; 83690; 85025; 99281; 99283

== ENCOUNTER 2021-05-25 09:22 | Outpatient (CLI) | payer MEDICAID ==
[2021-05-25 12:06] LABS: BASOPHILS % (AUTO) 0.7 %; EOSINOPHILS # (AUTO) 0.1 10^3/uL (0.0-0.7); HCT - HEMATOCRIT 41.2 % (42.0-52.0); HGB - HEMOGLOBIN 14.4 g/dL (14.0-18.0); LYMPHOCYTES # (AUTO) 1.3 10^3/uL (1.5-3.5); LYMPHOCYTES % (AUTO) 22.2 %; MEAN CORPUSCULAR VOLUME 108.7 fL (80.0-94.0); MEAN PLATELET VOLUME 11.6 fL (7.4-11.4); MONOCYTES # (AUTO) 0.5 10^3/uL (0.0-1.0); MONOCYTES % (AUTO) 8.3 %; NEUTROPHILS # (AUTO) 3.9 10^3/uL (1.5-6.6); NEUTROPHILS % (AUTO) 66.9 %; PLT - PLATELET COUNT 85 10^3/uL (130-450); RED BLOOD COUNT 3.79 10^6/uL (4.70-6.10); RED CELL DISTRIBUTION WIDTH 13.5 % (12.0-15.0); WHITE BLOOD COUNT 5.8 x10^3/uL (4.8-10.8)
[2021-05-25 12:28] LABS: ALBUMIN 4.3 g/dL (3.2-5.5); ALBUMIN/GLOBULIN RATIO 1.1 (1.0-2.2); ALKALINE PHOSPHATASE 91 IU/L (42-121); ALT ALANINE AMINOTRANSFERASE 90 IU/L (10-60); AST ASPARTATE AMINOTRANSFERASE 132 IU/L (10-42); BILIRUBIN,TOTAL 0.9 mg/dL (0.2-1.0); BUN - BLOOD UREA NITROGEN 8 mg/dL (6-20); CALCIUM 9.9 mg/dL (8.5-10.3); CARBON DIOXIDE - CO2 24 mmol/L (21-32); CHLORIDE 98 mmol/L (101-111); CHOL/HDL RATIO 3.8 (<5.0); CHOLESTEROL 168 mg/dL; CREATININE 0.8 mg/dL (0.6-1.2); GFR - MDRD 102 (>89); GLUCOSE 129 mg/dL (70-100); HDL CHOLESTEROL 44 mg/dL; LDL CHOLESTEROL,CALCULATED 93 mg/dL; LDL/HDL RATIO 2.1 (<3.6); POTASSIUM 3.3 mmol/L (3.5-5.0); SODIUM 134 mmol/L (135-145); TOTAL PROTEIN 8.1 g/dL (6.7-8.2); TRIGLYCERIDES 153 mg/dL; VLDL CHOLESTEROL 31 mg/dL
[2021-05-25 12:38] LABS: THYROID STIMULATING HORMONE 5.7 uIU/mL (0.34-5.60)
[2021-05-25 12:47] LABS: ESTIMATED AVERAGE GLUCOSE 111 mg/dL (70-100); HEMOGLOBIN A1c% 5.5 % (4.27-6.07)
[2021-05-25 14:33] LABS: FREE T4 (FREE THYROXINE) 0.78 ng/dL (0.58-1.64)
[2021-05-26 09:55] LABS: HEPATITIS B SURFACE ANTIGEN NON-REACTIVE (NON-REACTIVE); HEPATITIS C ANTIBODY NON-REACTIVE (NON-REACTIVE)
== END 2021-05-25 09:23 | disposition home or self-care (01) ==
LOC: LAB.N 09:22
PROVIDERS: ATTEND Physician Assistant Medical
DX: M62.82 Rhabdomyolysis (principal); D64.9 Anemia, unspecified; R73.9 Hyperglycemia, unspecified; R74.8 Abnormal levels of other serum enzymes; I10 Essential (primary) hypertension; E78.5 Hyperlipidemia, unspecified
CPT/HCPCS: 36415; 80053; 80061; 82607; 83036; 83721; 84439; 84443; 85025; 86317; 86704; 86709; 86803; 87340

== ENCOUNTER 2021-06-05 16:52 | Outpatient (CLI) | payer BC, MEDICAID | END 2021-06-05 16:53 | disposition critical access hospital (66) | LOC: EMS 16:52 | DX: F10.10 Alcohol abuse, uncomplicated (principal); R63.8 Other symptoms and signs concerning food and fluid intake; R45.89 Other symptoms and signs involving emotional state; F17.210 Nicotine dependence, cigarettes, uncomplicated | CPT/HCPCS: A0425; A0429 ==

== ENCOUNTER 2021-06-05 17:19 | Emergency (ER) | payer BC, MEDICAID ==
[2021-06-05] MEDS ORDERED: SODIUM CHLORIDE 0.9% 1,000 ML IV STA (17:29)
[2021-06-05] MEDS ORDERED: THIAMINE INJ 100 MG in SODIUM CHLORIDE 0.9% 50 ML IV STA (17:29)
--- NOTE | 2021-06-05 17:31 | ED Physician Documentation ---
History of Present Illness - Stated complaint Stated Complaint: WEAKNESS/ETOH - History obtained from History obtained from: Patient - Additonal information Additional information: 51-year-old gentleman with history of alcoholism, also stroke and a history of acute kidney injury presents by ambulance for evaluation. He took up drinking this week and has been drinking quite heavily. States he has not been able to eat or drink for the last 5 days because of poor appetite. No nausea or abdominal pain per se. Last night he fell and laid on the ground for about 5 hours and complains of some back pain with that. Review of Systems Ten Systems: 10 systems reviewed and negative Constitutional: reports: Reviewed and negative Nose: reports: Reviewed and negative Throat: reports: Reviewed and negative Cardiac: reports: Reviewed and negative Respiratory: reports: Reviewed and negative PD PAST MEDICAL HISTORY - Past Medical History Cardiovascular: Hypertension, High cholesterol Respiratory: None Neuro: None, CVA Endocrine/Autoimmune: None GI: None : None HEENT: Chronic vision loss, Other Psych: None Musculoskeletal: Osteoarthritis Derm: None - Past Surgical History Past Surgical History: Yes Ortho: Arthroscopic surgery, Other - Present Medications Home Medications: Ambulatory Orders Medication Instructions Recorded Confirmed Aspirin [Adult Aspirin Regimen] 81 mg PO DAILY #30 tablet. 08/22/19 11/13/20 Atorvastatin Calcium 80 mg PO DAILY PM #30 tablet 08/22/19 11/13/20 gemfibroziL [Lopid] 600 mg PO DAILY #30 tablet 08/23/19 11/13/20 Ferrous Gluconate [Fergon] 324 mg PO DAILY #30 tablet 11/16/20 Multivitamin 1 each PO DAILY #30 tablet 11/16/20 Saccharomyces Boulardii [Florastor] 250 mg PO DAILY #6 cap 11/16/20 Thiamine [Vitamin B-1] 100 mg PO DAILY #30 tablet 11/16/20 Vancomycin [Vancocin] 125 mg PO QID #24 cap 11/16/20 - Allergies Allergies/Adverse Reactions: Allergies Allergy/AdvReac Type Severity Reaction Status Date / Time Penicillins Allergy Unknown facial Verified 01/24/21 20:23 swelling - Social History Does the pt smoke?: Yes Smoking Status: Current every day smoker - Immunizations Immunizations are current?: No - POLST Patient has POLST: No POLST Status: Full Code PD ED PE NORMAL - Vitals Vital signs reviewed: Yes - General General: Alert and oriented X 3, Other (Smells heavily of alcohol and tobacco smoke, slightly intoxicated on exam but alert and oriented with generally decent history) - HEENT HEENT: PERRL, EOMI - Neck Neck: Supple, no meningeal sign, No bony TTP - Cardiac Cardiac: RRR, No murmur - Respiratory Respiratory: No respiratory distress, Other (Rhonchi bilaterally consistent with tobacco abuse) - Abdomen Abdomen: Normal bowel sounds, Soft, Non tender - Back Back: No CVA TTP, No spinal TTP, Other (Significant bruising on the upper and lower back, right side mostly with some underlying rib tenderness in the posterior axillary line.) - Derm Derm: Normal color, Warm and dry - Neuro Neuro: Alert and oriented X 3, Normal speech Results - Vitals Vitals: Vital Signs - 24 hr 06/05/21 06/05/21 06/05/21 17:28 17:36 17:39 Temperature 37.1 C Heart Rate 89 100 90 Respiratory 22 Rate Blood Pressure 153/103 H O2 Saturation 95 96 06/05/21 06/06/21 06/06/21 21:27 05:48 08:00 Temperature 37.1 C 36.6 C Heart Rate 74 78 96 Respiratory 14 16 16 Rate Blood Pressure 149/101 H 154/105 H 148/99 H O2 Saturation 95 96 Oxygen O2 Source Room air - Labs Labs: Laboratory Tests 06/05/21 06/05/21 06/05/21 17:30 17:30 17:30 WBC 9.0 RBC 3.96 L Hgb 14.9 Hct 41.9 L MCV 105.8 H MCH 37.6 H MCHC 35.6 RDW 13.1 Plt Count 278 MPV 9.5 Neut # (Auto) 5.6 Lymph # (Auto) 2.5 [place] # (Auto) 0.7 Eos # (Auto) 0.1 Baso # (Auto) 0.1 Absolute Nucleated RBC 0.00 Nucleated RBC % 0.0 PT 10.5 INR 0.9 VBG pH VBG pCO2 VBG pO2 VBG HCO3 VBG Total CO2 VBG O2 Saturation VBG Base Excess Sodium 138 Potassium 3.8 Chloride 99 L Carbon Dioxide 22 Anion Gap 17.0 H BUN 8 Creatinine 0.6 Estimated GFR (MDRD) 141 Glucose 98 Calcium 9.7 Magnesium 2.1 Total Bilirubin 0.9 AST 162 H ALT 86 H Alkaline Phosphatase 84 Total Creatine Kinase 344 H Total Protein 8.2 Albumin 4.5 Globulin 3.7 Albumin/Globulin Ratio 1.2 Lipase 43 Urine Opiates Screen Ur Oxycodone Screen Urine Methadone Screen Ur Propoxyphene Screen Ur Barbiturates Screen Ur Tricyclics Screen Ur Phencyclidine Scrn Ur Amphetamine Screen U Methamphetamines Scrn U Benzodiazepines Scrn Urine Cocaine Screen U Cannabinoids Screen Ethyl Alcohol 285.7 Serum Ketones NEGATIVE SARS-CoV-2 (PCR) 06/05/21 06/05/21 06/05/21 17:30 19:20 19:30 WBC RBC Hgb Hct MCV MCH MCHC RDW Plt Count MPV Neut # (Auto) Lymph # (Auto) [place] # (Auto) Eos # (Auto) Baso # (Auto) Absolute Nucleated RBC Nucleated RBC % PT INR VBG pH 7.426 H VBG pCO2 36.5 L VBG pO2 58.8 H VBG HCO3 23.5 VBG Total CO2 24.6 VBG O2 Saturation 91.4 H VBG Base Excess -0.4 Sodium Potassium Chloride Carbon Dioxide Anion Gap BUN Creatinine Estimated GFR (MDRD) Glucose Calcium Magnesium Total Bilirubin AST ALT Alkaline Phosphatase Total Creatine Kinase Total Protein Albumin Globulin Albumin/Globulin Ratio Lipase Urine Opiates Screen NEGATIVE Ur Oxycodone Screen NEGATIVE Urine Methadone Screen NEGATIVE Ur Propoxyphene Screen NEGATIVE Ur Barbiturates Screen NEGATIVE Ur Tricyclics Screen NEGATIVE Ur Phencyclidine Scrn NEGATIVE Ur Amphetamine Screen NEGATIVE U Methamphetamines Scrn NEGATIVE U Benzodiazepines Scrn NEGATIVE Urine Cocaine Screen NEGATIVE U Cannabinoids Screen NEGATIVE Ethyl Alcohol Serum Ketones SARS-CoV-2 (PCR) NOT DETECTED - Rads (name of study) CT of the head with some white matter disease and volume loss with a known prior left thalamic lacune that is chronic Radiology: EMP read contemporaneously CT of the cervical spine demonstrates straightening and spondylosis without acute fracture or evidence of trauma Radiology: EMP read contemporaneously CT of the chest with IV contrast is basically unremarkable Radiology: EMP read contemporaneously CT of the abdomen and pelvis with IV contrast shows posterior contusions, hepatic steatosis, nonspecific bowel wall thickening and perinephric strandi Radiology: EMP read contemporaneously PD MEDICAL DECISION MAKING - ED course ED course: 51-year-old gentleman presents by ambulance with alcohol intoxication after a fall. He is surprisingly cogent and coherent for his blood alcohol level. Work-up here demonstrates some soft contused tissue contusions on the right side, a blood alcohol of 285 with some mild transaminitis and other incidental findings on CT imaging. After the administration of IV fluids and thiamine he is hungry and is feeling better. He would like to board in the emergency department pending social work consultation in the morning for consideration for detoxification. Care to the overnight ED physician at shift change. Departure - Departure Disposition: 01 Home, Self Care Clinical Impression: Alcohol intoxication, Alcoholic liver disease, Fall from ground level, Contusion of right side of back Condition: Stable Record reviewed to determine appropriate education?: Yes Instructions: ED Contusion Back, ED Alcohol Intoxication Comments: Avoid excess alcohol and regular alcohol. Seek treatment for alcohol cessation and rehab. Tylenol every 4-6 hours if needed for pains. Ice and gentle stretching for the back. Continue usual home medications. Discharge Date/Time: 06/06/21 09:10
[2021-06-05] MEDS ORDERED: IOVERSOL 320 100 ML VIAL IVP ONE ×2 (17:42→18:49)
[2021-06-05 17:43] LABS: BASOPHILS # (AUTO) 0.1 10^3/uL (0.0-0.1); BASOPHILS % (AUTO) 0.9 %; EOSINOPHILS # (AUTO) 0.1 10^3/uL (0.0-0.7); EOSINOPHILS % (AUTO) 1.4 %; HCT - HEMATOCRIT 41.9 % (42.0-52.0); HGB - HEMOGLOBIN 14.9 g/dL (14.0-18.0); LYMPHOCYTES # (AUTO) 2.5 10^3/uL (1.5-3.5); LYMPHOCYTES % (AUTO) 27.5 %; MEAN CORPUSCULAR HEMOGLOBIN 37.6 pg (27.0-31.0); MEAN CORPUSCULAR HGB CONC 35.6 g/dL (32.0-36.0); MEAN CORPUSCULAR VOLUME 105.8 fL (80.0-94.0); MEAN PLATELET VOLUME 9.5 fL (7.4-11.4); MONOCYTES # (AUTO) 0.7 10^3/uL (0.0-1.0); MONOCYTES % (AUTO) 7.8 %; NEUTROPHILS # (AUTO) 5.6 10^3/uL (1.5-6.6); NEUTROPHILS % (AUTO) 62.1 %; PLT - PLATELET COUNT 278 10^3/uL (130-450); RED BLOOD COUNT 3.96 10^6/uL (4.70-6.10); RED CELL DISTRIBUTION WIDTH 13.1 % (12.0-15.0)
[2021-06-05 17:44] LABS: VBG BASE EXCESS -0.4 mmol/L (-2 - +2); VBG HCO3 23.5 mmol/L (23-28); VBG OXYGEN SATURATION 91.4 % (60-80); VBG PCO2 36.5 mmHg (41-51); VBG PH 7.426 (7.31-7.41); VBG PO2 58.8 mmHg (25-47); VBG TOTAL CO2 24.6 mmol/L (24-29)
[2021-06-05 17:52] LABS: INR 0.9 (0.8-1.2); PT - PROTHROMBIN TIME 10.5 secs (9.9-12.6)
[2021-06-05 17:53] LABS: KETONES, SERUM (ACETEST) NEGATIVE (NEGATIVE)
[2021-06-05 18:01] LABS: ALBUMIN 4.5 g/dL (3.2-5.5); ALBUMIN/GLOBULIN RATIO 1.2 (1.0-2.2); ALKALINE PHOSPHATASE 84 IU/L (42-121); ALT ALANINE AMINOTRANSFERASE 86 IU/L (10-60); AST ASPARTATE AMINOTRANSFERASE 162 IU/L (10-42); BILIRUBIN,TOTAL 0.9 mg/dL (0.2-1.0); BUN - BLOOD UREA NITROGEN 8 mg/dL (6-20); CALCIUM 9.7 mg/dL (8.5-10.3); CARBON DIOXIDE - CO2 22 mmol/L (21-32); CHLORIDE 99 mmol/L (101-111); CK- CREATINE KINASE 344 IU/L (22-269); CREATININE 0.6 mg/dL (0.6-1.2); ETOH - ETHANOL 285.7 mg/dL; GFR - MDRD 141 (>89); GLUCOSE 98 mg/dL (70-100); LIPASE 43 U/L (22-51); MAGNESIUM 2.1 mg/dL (1.7-2.8); POTASSIUM 3.8 mmol/L (3.5-5.0); SODIUM 138 mmol/L (135-145); TOTAL PROTEIN 8.2 g/dL (6.7-8.2)
--- NOTE | 2021-06-05 18:46 | CT Report ---
PROCEDURE: HEAD WO INDICATIONS: Trauma, intoxicated TECHNIQUE: Noncontrast 4.5 mm thick angled axial sections acquired from the foramen magnum to the vertex. For r adiation dose reduction, the following was used: automated exposure control, adjustment of mA and/or kV according to patient size. COMPARISON: CT head 11/13/2020. FINDINGS: Image quality: Excellent. CSF spaces: There is mild cerebral volume loss with prominence of the ventricles and sulci. Basal ci sterns are patent. No extra-axial fluid collections. Brain: No intracranial hemorrhage, mass, or mass effect. Watts-white matter interface is preserved. T here are subcortical and periventricular white matter hypodensities consistent with mild chronic smal l vessel ischemic changes. A focal hypodensity is redemonstrated in the left thalamus consistent with sequelae of a prior lacunar infarct. Skull and face: Calvarium and visualized facial bones are intact, without suspicious lesions. Sinuses: Visualized sinuses and mastoids are clear. IMPRESSION: 1. No acute intracranial modality. 2. Mild chronic white matter small vessel ischemic changes and cerebral volume loss. 3. Sequelae of a prior small lacunar infarct in the left thalamus redemonstrated. Reviewed by: Gentry Bryson MD on 06/05/2021 6:45 PM PST Approved by: Gentry Bryson MD on 06/05/2021 6:45 PM PST Station ID: [id number]
--- NOTE | 2021-06-05 18:48 | CT Report ---
PROCEDURE: CERVICAL SPINE WO INDICATIONS: Trauma, intoxicated TECHNIQUE: Noncontrast 3 mm thick sections acquired from the skull base to the T4 level. Sagittal and coronal r eformats were then constructed. For radiation dose reduction, the following was used: automated exp osure control, adjustment of mA and/or kV according to patient size. COMPARISON: None. FINDINGS: Image quality: Excellent. Bones: No acute fractures or dislocations. Visualized superior ribs are intact. Craniocervical keira ction is intact. Straightening of cervical lordosis. Multilevel cervical spondylosis with significant disc space loss at C6-7 and C7-T1. No acute compression fractures. Lower cervical facet arthropathy. Soft tissues: Prevertebral soft tissues are normal in thickness. No paravertebral hematomas. No ap ical pneumothoraces. IMPRESSION: Cervical spine without acute fracture or traumatic malalignment. Multilevel cervical spondylosis most severe at C6-7 and C7-T1. Straightening of cervical lordosis likely related to patient positioning and/or concurrent muscle spa sms. Reviewed by: Bryan Hernandez MD on 06/05/2021 5:47 PM AKST Approved by: Bryan Hernandez MD on 06/05/2021 5:47 PM AKST Station ID: [id number]
--- NOTE | 2021-06-05 18:53 | CT Report ---
PROCEDURE: CHEST W INDICATIONS: Trauma, intoxicated, back injuries, R sided CONTRAST: IV CONTRAST: Optiray 320 ml: 100 PO CONTRAST: *NO PO CONTRAST TECHNIQUE: After the administration of intravenous contrast, 1 mm axial images were acquired from the pulmonary apices through the posterior costophrenic angles. Axial 5 mm soft tissue kernel reconstructions were performed as well as 8 mm axial MIP and coronal and sagittal 5 mm reformations. For radiation dose reduction, the following was used: automated exposure control, adjustment of mA and/or kV according to patient size. COMPARISON: Concurrent CT of the abdomen and pelvis. FINDINGS: Image quality: Excellent. Lungs and pleura: No pulmonary contusions or lacerations. No consolidation. No pleural effusions or p neumothorax. Central and peripheral airways are patent and normal in caliber. Mediastinum: Heart size is normal. No pericardial effusion. No mediastinal or hilar adenopathy by size criteria. No mediastinal hematoma identified. Thoracic aorta and central pulmonary arteries are normal in size. Esophagus is normal in caliber. There is a small hiatal hernia. Bones and chest wall: No acute fractures identified. No suspicious bony lesions. No vertebral body compression fractures. No axillary or supraclavicular adenopathy by size criteria. The visualized th yroid demonstrates no discrete nodules. Abdomen: Visualized upper abdomen demonstrates mild nonspecific perinephric along the partially visu alized kidneys stranding. IMPRESSION: 1. No acute traumatic abnormality identified in the thorax. Reviewed by: Gentry Bryson MD on 06/05/2021 6:51 PM PST Approved by: Gentry Bryson MD on 06/05/2021 6:51 PM PST Station ID: [id number]
--- NOTE | 2021-06-05 19:00 | CT Report ---
PROCEDURE: Abdomen/Pelvis W INDICATIONS: Trauma, intoxicated, back injuries, R side CONTRAST: IV CONTRAST: Optiray 320 ml: 100 PO CONTRAST: *NO PO CONTRAST TECHNIQUE: After the administration of intravenous contrast, 5 mm thick sections acquired from the diaphragms to the symphysis. 5 mm thick coronal and sagittal reformats were acquired. For radiation dose reducti on, the following was used: automated exposure control, adjustment of mA and/or kV according to carolyn ent size. COMPARISON: Concurrent CT of the chest. FINDINGS: Image quality: Excellent. ABDOMEN: Lung bases: Lung bases are clear. Heart size is normal. Solid organs: There is hypoattenuation of the liver suggestive of fatty infiltration. No evidence of hepatic lacerations. There is a small dependent calcified gallstone without focal bladder wall thicke adal or pericholecystic fluid. Biliary system is non dilated. The spleen is normal in size without l acerations or perisplenic fluid. Pancreas enhances normally without peripancreatic fat stranding or f luid collections. No adrenal nodules. Kidneys demonstrate no hydronephrosis. There is mild nonspeci fic perinephric stranding bilaterally. No perinephric fluid collections. Peritoneum and bowel: There are nondistended segments of the distal ileum, ascending colon, and sigmo id colon with suggestion of mild wall thickening. The findings may reflect a mild inflammatory infect ious process. The appendix is normal in appearance. No free fluid or air. Nodes and vessels: No retroperitoneal or mesenteric adenopathy by size criteria. Aorta and inferior vena cava are normal in size. Miscellaneous: There is mild serpiginous fat stranding in the right posterior lateral lower chest wa ll and upper abdominal wall. No discrete hematoma collections. A subcutaneous right paracentral cysti c lesion posteriorly measuring up to 2.2 x 2.0 cm in transverse dimension likely represents a sebaceo us cyst. No ventral hernias. PELVIS: Genitourinary: Bladder wall thickness is normal. Miscellaneous: No inguinal hernias or adenopathy. Bones: No suspicious bony lesions. No vertebral body compression fractures. IMPRESSION: 1. Mild subcutaneous fat stranding within the right posterolateral lower chest and abdominal wall lik honorio represent soft tissue contusions. 2. Elsewhere, no definite acute traumatic abnormality within the abdomen or pelvis. 3. Suspected hepatic steatosis. 4. Nondistended segment of the small large bowel with possible mild bowel wall thickening versus tiffanie fact from nondistention. A mild enteritis or colitis is not excluded. 5. Mild nonspecific perinephric stranding bilaterally without perinephric fluid collections or hydron ephrosis. Reviewed by: Gentry Bryson MD on 06/05/2021 6:59 PM PST Approved by: Gentry Bryson MD on 06/05/2021 6:59 PM PST Station ID: [id number]
[2021-06-05 19:38] LABS: MUDS CUTOFF CONCENTRATIONS CUTOFF CONC BELOW:
[2021-06-05 19:57] LABS: AMPHETAMINE SCREEN,URINE NEGATIVE (NEGATIVE); BARBITURATE SCREEN,UR NEGATIVE (NEGATIVE); BENZODIAZEPINES SCREEN, URINE NEGATIVE (NEGATIVE); COCAINE SCREEN URINE NEGATIVE (NEGATIVE); METHADONE SCREEN, URINE NEGATIVE (NEGATIVE); METHAMPHETAMINES SCREEN, URINE NEGATIVE (NEGATIVE); OPIATE SCREEN, URINE NEGATIVE (NEGATIVE); OXYCODONE SCREEN, URINE NEGATIVE (NEGATIVE); PROPOXYPHENE SCREEN, URINE NEGATIVE (NEGATIVE); THC CANNABINOID SCREEN, URINE NEGATIVE (NEGATIVE); TRICYCLIC ANTIDEPRESSANT,URINE NEGATIVE (NEGATIVE)
[2021-06-06 08:19] VITALS: BP 148/99
--- NOTE | 2021-06-06 09:06 | ED Physician Documentation ---
ED Addendum - Addendum Addendum: 06/06/21 09:05The patient is awake and alert and ambulatory. He is conversant. He is not feeling nauseous or shaky. He states he is feeling well at this time and he called his parents to come get a ride for him home. I asked if there was anything we could do for him to help at home. If he needed any medications or if he would like to wait a little bit longer for social work to help with resources or alcohol treatment. He states at this point he would like to just go home and he has what he needs at home. Disposition: The patient is discharged home from the ER stable Diagnoses: 1. Alcohol intoxication 2. Fall with injury 3. Alcoholism
[2021-06-06] MEDS ORDERED: ACETAMINOPHEN 325 MG TABLET PO STA (09:08)
== END 2021-06-06 09:10 | disposition home or self-care (01) ==
LOC: EDUNIT# → ED 17:19
DX: K70.9 Alcoholic liver disease, unspecified (principal); F10.129 Alcohol abuse with intoxication, unspecified; Y90.8 Blood alcohol level of 240 mg/100 ml or more; W18.30XA Fall on same level, unspecified, initial encounter; I10 Essential (primary) hypertension; F17.200 Nicotine dependence, unspecified, uncomplicated; Z20.822 Contact with and (suspected) exposure to COVID-19
CPT/HCPCS: 36415; 70450; 71260; 72125; 74177; 80053; 80306; 80320; 82009; 82550; 82803; 83690; 83735; 85025; 85610; 87635; 96365; 96366; 99284; J3411; J7040; Q9967

== ENCOUNTER 2021-07-10 11:06 | Outpatient (CLI) | payer MEDICAID | END 2021-07-10 11:07 | disposition critical access hospital (66) | LOC: EMS 11:06 | DX: H53.8 Other visual disturbances (principal); R53.83 Other fatigue | CPT/HCPCS: A0425; A0429; A0999 ==

== ENCOUNTER 2021-07-10 11:32 | Emergency (ER) | payer MEDICAID ==
--- OUTSIDE RECORDS SUMMARY | 2021-07-10 11:45 | EXTERNAL MEDICAL SUMMARY RPT | Continuity of Care Document ---
:1970 Author Organization [facility] Address [address] [place] [address] Phone Care Team Providers Name Role Phone [place] Unavailable Unavailable Allergies No information. Encounters No information. Medications No information. Problems Procedures date description facility [id number] [facility] Results No information. Vital Signs date measurement value source 20210626 weight_standard 224.98 lb 20210626 weight_metric 102.05 kg 20210626 temperature_standard 98.5 F 20210626 temperature_metric 36.94 C 20210626 respiration_rate 18 /min 20210626 height_standard 76 in [id number] height_metric 193.04 cm 20210626 heart_rate 78 /min 20210626 BP_systolic 148 mm[Hg] 20210626 BP_diastolic 88 mm[Hg] 20210626 BMI 27.3 kg/m2
[2021-07-10 11:51] VITALS: BP 143/99
[2021-07-10 12:02] LABS: BASOPHILS % (AUTO) 0.4 %; EOSINOPHILS # (AUTO) 0.1 10^3/uL (0.0-0.7); EOSINOPHILS % (AUTO) 1.1 %; HCT - HEMATOCRIT 38.2 % (42.0-52.0); HGB - HEMOGLOBIN 14.1 g/dL (14.0-18.0); LYMPHOCYTES # (AUTO) 1.3 10^3/uL (1.5-3.5); LYMPHOCYTES % (AUTO) 28.1 %; MEAN CORPUSCULAR HEMOGLOBIN 38.5 pg (27.0-31.0); MEAN CORPUSCULAR HGB CONC 36.9 g/dL (32.0-36.0); MEAN CORPUSCULAR VOLUME 104.4 fL (80.0-94.0); MEAN PLATELET VOLUME 9.4 fL (7.4-11.4); MONOCYTES # (AUTO) 0.3 10^3/uL (0.0-1.0); MONOCYTES % (AUTO) 6.2 %; NEUTROPHILS # (AUTO) 2.9 10^3/uL (1.5-6.6); PLT - PLATELET COUNT 92 10^3/uL (130-450); RED BLOOD COUNT 3.66 10^6/uL (4.70-6.10); RED CELL DISTRIBUTION WIDTH 13.2 % (12.0-15.0); WHITE BLOOD COUNT 4.5 x10^3/uL (4.8-10.8)
--- NOTE | 2021-07-10 12:07 | ED Physician Documentation ---
History of Present Illness - Stated complaint Stated Complaint: EYE BLURRY VISION - Chief complaint Chief Complaint: General - Additonal information Additional information: 51-year-old male presents emergency department for evaluation of 2 days right eye blurry vision. He does wear corrective lenses. He states that on 26 June he fell struck his head and lost consciousness. He was seen at [facility] and underwent CT scanning that was negative for intracranial hemorrhage or bleed. He was diagnosed with a concussion. He has had some minor headaches since. However 2 days ago he developed worsening blurry vision in his right e ye. He denies any new falls or trauma. He has no eye pain. He has no visual field deficits or sensation of the curtain coming down. 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 He only has peripheral vision laterally in the left eye. Patient says that he has been feeling generally weak. No fevers no nausea or vomiting. He has had some diarrhea today. Patient does have a history of moderate alcohol use. Review of Systems Constitutional: denies: Fever, Chills Eyes: reports: Decreased vision Ears: reports: Reviewed and negative Nose: reports: Reviewed and negative Throat: reports: Reviewed and negative Cardiac: reports: Reviewed and negative Respiratory: reports: Reviewed and negative GI: reports: Diarrhea : reports: Reviewed and negative Skin: reports: Reviewed and negative Musculoskeletal: reports: Reviewed and negative Neurologic: reports: Head injury (06/26/21). denies: Generalized weakness, Focal weakness Psychiatric: reports: Reviewed and negative PD PAST MEDICAL HISTORY - Past Medical History Cardiovascular: Hypertension, High cholesterol Respiratory: None Neuro: None, CVA Endocrine/Autoimmune: None GI: None : None HEENT: Chronic vision loss, Other Psych: None Musculoskeletal: Osteoarthritis Derm: None - Past Surgical History Past Surgical History: Yes Ortho: Arthroscopic surgery, Other - Present Medications Home Medications: Ambulatory Orders Medication Instructions Recorded Confirmed Aspirin [Adult Aspirin Regimen] 81 mg PO DAILY #30 tablet. 08/22/19 11/13/20 Atorvastatin Calcium 80 mg PO DAILY PM #30 tablet 08/22/19 11/13/20 gemfibroziL [Lopid] 600 mg PO DAILY #30 tablet 08/23/19 11/13/20 Ferrous Gluconate [Fergon] 324 mg PO DAILY #30 tablet 11/16/20 Multivitamin 1 each PO DAILY #30 tablet 11/16/20 Saccharomyces Boulardii [Florastor] 250 mg PO DAILY #6 cap 11/16/20 Thiamine [Vitamin B-1] 100 mg PO DAILY #30 tablet 11/16/20 Vancomycin [Vancocin] 125 mg PO QID #24 cap 11/16/20 - Allergies Allergies/Adverse Reactions: Allergies Allergy/AdvReac Type Severity Reaction Status Date / Time Penicillins Allergy Unknown facial Verified 07/10/21 11:37 swelling - Social History Does the pt smoke?: Yes Smoking Status: Current every day smoker Does the pt drink ETOH?: Yes Does the pt have substance abuse?: Yes - Immunizations Immunizations are current?: No - POLST Patient has POLST: No POLST Status: Full Code PD ED PE EXPANDED - General General: Alert, No acute distress, Well developed/nourished (appears older than ststed age) - HEENT HEENT: Atraumatic, PERRL, EOMI, Other (Corrected vision with the right eye is 20/25. Unable to assess left eye due to previous vision loss) - Eyes Eyes: PERRL, Normal accommodation, EOMI, Other (Tonometry of the right eye reveals mildly elevated pressure of 23 mmHg with 95% confidence interval. Left eye tonometry similar at 22 mmHg with 95% confidence interval). No: EOM palsy, Subconj hemorrhage - Neck Neck: Supple w/out meningeal sx. No: Adenopathy - Cardiac Cardiac: Regular Rate, Radial strong equal, Cap refill < 2 sec - Respiratory Respiratory: Clear to ausultation mae. No: Distress, Labored - Abdomen Abdomen: Normal Bowel sounds. No: Tender to palpation - Derm Derm: Normal color, Warm and dry. No: Rash - Neuro Neuro: Alert and Oriented X 3, CNII-XII intact, Cerebellar nl, Normal gait, Normal finger nose, Normal speech - GCS Eye Opening: Spontaneous Motor: Obeys Commands Verbal: Oriented Total: 15 Results - Vitals Vitals: Vital Signs - 24 hr 07/10/21 07/10/21 11:37 11:49 Temperature 36.5 C Heart Rate 88 99 Respiratory 16 19 Rate Blood Pressure 140/90 H 143/99 H O2 Saturation 98 97 Oxygen O2 Source Room air - Labs Labs: Laboratory Tests 07/10/21 07/10/21 07/10/21 11:53 11:53 11:53 WBC 4.5 L RBC 3.66 L Hgb 14.1 Hct 38.2 L MCV 104.4 H MCH 38.5 H MCHC 36.9 H RDW 13.2 Plt Count 92 L MPV 9.4 Neut # (Auto) 2.9 Lymph # (Auto) 1.3 L [place] # (Auto) 0.3 Eos # (Auto) 0.1 Baso # (Auto) 0.0 Absolute Nucleated RBC 0.00 Nucleated RBC % 0.0 PT 11.9 INR 1.1 Sodium 139 Potassium 3.4 L Chloride 101 Carbon Dioxide 23 Anion Gap 15.0 H BUN 11 Creatinine 0.6 Estimated GFR (MDRD) 141 Glucose 104 H Calcium 8.5 Total Bilirubin 1.2 H AST 259 H ALT 92 H Alkaline Phosphatase 81 Ammonia Total Protein 7.4 Albumin 3.9 Globulin 3.5 Albumin/Globulin Ratio 1.1 Lipase 40 Ethyl Alcohol 07/10/21 07/10/21 11:53 11:53 WBC RBC Hgb Hct MCV MCH MCHC RDW Plt Count MPV Neut # (Auto) Lymph # (Auto) [place] # (Auto) Eos # (Auto) Baso # (Auto) Absolute Nucleated RBC Nucleated RBC % PT INR Sodium Potassium Chloride Carbon Dioxide Anion Gap BUN Creatinine Estimated GFR (MDRD) Glucose Calcium Total Bilirubin AST ALT Alkaline Phosphatase Ammonia 36.2 H Total Protein Albumin Globulin Albumin/Globulin Ratio Lipase Ethyl Alcohol 155.2 PD MEDICAL DECISION MAKING - ED course Complexity details: reviewed results, re-evaluated patient, considered differential, d/w patient ED course: 51-year-old male who has a history of heavy alcoholism but denies any recent use presents the emergency department for 2 days of blurry vision in the right eye. On exam his corrected vision is 20/25. Tonometry does show very mildly elevated pressures at 22. This is bilateral. I suspect that he is developing early glaucoma. I did attempt to reach Dr. Howe but a return call was not made. Patient reports having a fall while drinking on 26 June. He was seen at [facility]. Had negative CT imaging. He feels that he has a concussion. Screening labs today do show worsening LFTs consistent with alcoholic hepatitis. Patient is free of abdominal pain or vomiting. He denies any recent drinking though his blood alcohol is elevated at 155. I discussed with the patient that the eye pressures are likely best treated through ophthalmology and he will follow up with Dr. Howe. We also discussed my concerns for alcohol abuse. He is thinking about stopping drinking though he is not ready. Given the history of heavy alcoholism I advised him to not stop suddenly. I did give him the phone number for a to a detox facility in [place]. Emergent return precautions were discussed. Departure - Departure Disposition: 01 Home, Self Care Clinical Impression: Blurry vision, right eye, Elevated LFTs, Alcohol abuse Glaucoma (increased eye pressure) Qualifiers: Glaucoma type: unspecified Laterality: bilateral Qualified Code(s): H40.9 - Unspecified glaucoma Condition: Stable Record reviewed to determine appropriate education?: Yes Follow-Up: Cat Marks PA-C [Primary Care Provider] - Comments: Gentry arreola were seen today in the emergency department for blurry vision in your right eye for 2 days. The pressure in your right eye is 22. This is mildly elevated. The cutoff for normal is 20. This can be a sign of early glaucoma. It is important that you follow-up the elevated eye pressure as soon as possible with Dr. Howe. Your screening labs today show some abnormal liver function tests that are consistent with alcohol abuse. Your blood alcohol level today is 155 or 1.5. You are clinically legally intoxicated. You cannot drive for at least 24 hours. I would like you to consider stopping alcohol use. Though I would not recommend that you stop drinking suddenly as you could go into withdrawal and that could be fatal. If you are interested in alcohol cessation and interested in going into detox you can call the [facility] detox facility on [address] at [phone]
[2021-07-10 12:10] LABS: INR 1.1 (0.8-1.2); PT - PROTHROMBIN TIME 11.9 secs (9.9-12.6)
[2021-07-10] MEDS ORDERED: PROPARACAINE 0.5% OPHTH DROPS 15 ML RIGHTEYE STA (12:10)
[2021-07-10 12:14] LABS: ALBUMIN 3.9 g/dL (3.2-5.5); ALBUMIN/GLOBULIN RATIO 1.1 (1.0-2.2); BILIRUBIN,TOTAL 1.2 mg/dL (0.2-1.0); CALCIUM 8.5 mg/dL (8.5-10.3); CREATININE 0.6 mg/dL (0.6-1.2); POTASSIUM 3.4 mmol/L (3.5-5.0); TOTAL PROTEIN 7.4 g/dL (6.7-8.2)
== END 2021-07-10 13:04 | disposition home or self-care (01) ==
LOC: EDUNIT# → ED 11:32
DX: H40.9 Unspecified glaucoma (principal); H54.40 Blindness, one eye, unspecified eye; F10.10 Alcohol abuse, uncomplicated; Y90.6 Blood alcohol level of 120-199 mg/100 ml; I10 Essential (primary) hypertension; F17.200 Nicotine dependence, unspecified, uncomplicated
CPT/HCPCS: 36415; 80053; 80320; 82140; 83690; 85025; 85610; 99283; 99284; J3490

== ENCOUNTER 2021-08-26 07:11 | Outpatient (CLI) | payer MEDICAID ==
[2021-08-26 12:39] LABS: ALBUMIN 4.1 g/dL (3.2-5.5); ALBUMIN/GLOBULIN RATIO 1.2 (1.0-2.2); BILIRUBIN,TOTAL 0.3 mg/dL (0.2-1.0); CALCIUM 9.9 mg/dL (8.5-10.3); CREATININE 0.7 mg/dL (0.6-1.2); POTASSIUM 4.3 mmol/L (3.5-5.0); TOTAL PROTEIN 7.6 g/dL (6.7-8.2)
[2021-08-26 12:47] LABS: THYROID STIMULATING HORMONE 3.89 uIU/mL (0.34-5.60)
[2021-08-26 13:23] LABS: ESTIMATED AVERAGE GLUCOSE 105 mg/dL (70-100); HEMOGLOBIN A1c% 5.3 % (4.27-6.07)
== END 2021-08-26 07:12 | disposition home or self-care (01) ==
LOC: LAB.N 07:11
PROVIDERS: ATTEND Physician Assistant Medical
DX: R73.9 Hyperglycemia, unspecified (principal); E03.9 Hypothyroidism, unspecified
CPT/HCPCS: 36415; 80053; 83036; 84443

== ENCOUNTER 2021-10-30 21:01 | Outpatient (CLI) | payer MEDICAID | END 2021-10-30 23:59 | disposition critical access hospital (66) | LOC: EMS 21:01 | DX: Z02.2 Encounter for examination for admission to residential institution (principal); F10.129 Alcohol abuse with intoxication, unspecified | CPT/HCPCS: A0425; A0429; A0999 ==

== ENCOUNTER 2021-10-30 21:23 | Emergency (ER) | payer MEDICAID ==
[2021-10-30] MEDS ORDERED: THIAMINE 100 MG TABLET PO STA (21:27)
--- NOTE | 2021-10-30 21:28 | ED Physician Documentation ---
History of Present Illness - Stated complaint Stated Complaint: ETOH/DETOX - History obtained from History obtained from: Patient - History of Present Illness Timing: Chronic - Additonal information Additional information: 51-year-old male with history of alcoholism presents for medical clearance prior to being sent to detox. Patient is a daily drinker for the last 30 years. He called mental health services stating that he wanted help and would like to enter detox. On arrival the patient is belligerent with staff, stating "I just want to go to rehab why are you bothering me" Review of Systems Unable to obtain: Uncooperative PD PAST MEDICAL HISTORY - Past Medical History Cardiovascular: Hypertension, High cholesterol Respiratory: None Neuro: None, CVA Endocrine/Autoimmune: None GI: None : None HEENT: Chronic vision loss, Other Psych: None Musculoskeletal: Osteoarthritis Derm: None - Past Surgical History Past Surgical History: Yes Ortho: Arthroscopic surgery, Other - Present Medications Home Medications: Ambulatory Orders Medication Instructions Recorded Confirmed Aspirin [Adult Aspirin Regimen] 81 mg PO DAILY #30 tablet. 08/22/19 10/30/21 Atorvastatin Calcium 80 mg PO DAILY PM #30 tablet 08/22/19 10/30/21 gemfibroziL [Lopid] 600 mg PO DAILY #30 tablet 08/23/19 10/30/21 Multivitamin 1 each PO DAILY #30 tablet 11/16/20 10/30/21 Saccharomyces Boulardii [Florastor] 250 mg PO DAILY #6 cap 11/16/20 10/30/21 Thiamine [Vitamin B-1] 100 mg PO DAILY #30 tablet 11/16/20 10/30/21 - Allergies Allergies/Adverse Reactions: Allergies Allergy/AdvReac Type Severity Reaction Status Date / Time Penicillins Allergy Unknown facial Verified 07/10/21 11:37 swelling - Social History Does the pt smoke?: Yes Smoking Status: Current every day smoker Does the pt drink ETOH?: Yes Does the pt have substance abuse?: Yes - Immunizations Immunizations are current?: No - POLST Patient has POLST: No POLST Status: Full Code PD ED PE NORMAL - Vitals Vital signs reviewed: Yes - General General: Alert and oriented X 3, No acute distress, Well developed/nourished, Other (uncooperative) - HEENT HEENT: Atraumatic, PERRL, EOMI, Ears normal - Neck Neck: Supple, no meningeal sign, No bony TTP, C-Spine cleared by NEXUS criteria - Cardiac Cardiac: RRR, No murmur, Strong equal pulses - Respiratory Respiratory: No respiratory distress, Clear bilaterally - Abdomen Abdomen: Soft, Non tender, Non distended - Male Male : Deferred - Rectal Rectal: Deferred - Back Back: No CVA TTP, No spinal TTP - Derm Derm: Normal color, Warm and dry, No rash - Extremities Extremities: No deformity, Normal ROM s pain, No edema - Neuro Neuro: Alert and oriented X 3, manager pediatric 2-12 intact, No motor deficit, No sensory deficit, Normal speech Results - Vitals Vitals: Vital Signs - 24 hr 10/30/21 10/30/21 10/30/21 21:42 22:59 23:37 Temperature 36.4 C L 36.9 C 36.9 C Heart Rate 100 95 91 Respiratory 16 16 16 Rate Blood Pressure 166/102 H 156/104 H 143/83 H O2 Saturation 100 97 98 10/31/21 02:24 Temperature Heart Rate 70 Respiratory 18 Rate Blood Pressure 116/86 H O2 Saturation 90 L Oxygen O2 Source Room air - Labs Labs: Laboratory Tests 10/30/21 10/30/21 10/30/21 21:36 21:36 21:36 WBC 6.8 RBC 4.32 L Hgb 15.4 Hct 43.3 MCV 100.2 H MCH 35.6 H MCHC 35.6 RDW 13.5 Plt Count 214 MPV 8.8 Neut # (Auto) 3.3 Lymph # (Auto) 2.9 [place] # (Auto) 0.5 Eos # (Auto) 0.1 Baso # (Auto) 0.1 Absolute Nucleated RBC 0.00 Nucleated RBC % 0.0 Sodium 139 Potassium 3.9 Chloride 101 Carbon Dioxide 23 Anion Gap 15.0 H BUN 9 Creatinine 0.6 Estimated GFR (MDRD) 141 Glucose 100 Calcium 9.4 Total Bilirubin 0.4 AST 102 H ALT 69 H Alkaline Phosphatase 58 Total Protein 8.3 H Albumin 4.4 Globulin 3.9 Albumin/Globulin Ratio 1.1 TSH 2.41 Urine Color Urine Clarity Urine pH Ur Specific [place] Urine Protein Urine Glucose (UA) Urine Ketones Urine Occult Blood Urine Nitrite Urine Bilirubin Urine Urobilinogen Ur Leukocyte Esterase Ur Microscopic Review Urine Culture Comments Salicylates < 6.0 Urine Opiates Screen Ur Oxycodone Screen Urine Methadone Screen Ur Propoxyphene Screen Acetaminophen < 10 L Ur Barbiturates Screen Ur Tricyclics Screen Ur Phencyclidine Scrn Ur Amphetamine Screen U Methamphetamines Scrn U Benzodiazepines Scrn Urine Cocaine Screen U Cannabinoids Screen Ethyl Alcohol 325.5 SARS-CoV-2 (PCR) 10/30/21 10/31/21 21:40 01:07 WBC RBC Hgb Hct MCV MCH MCHC RDW Plt Count MPV Neut # (Auto) Lymph # (Auto) [place] # (Auto) Eos # (Auto) Baso # (Auto) Absolute Nucleated RBC Nucleated RBC % Sodium Potassium Chloride Carbon Dioxide Anion Gap BUN Creatinine Estimated GFR (MDRD) Glucose Calcium Total Bilirubin AST ALT Alkaline Phosphatase Total Protein Albumin Globulin Albumin/Globulin Ratio TSH Urine Color YELLOW Urine Clarity CLEAR Urine pH 5.5 Ur Specific [place] 1.010 Urine Protein NEGATIVE Urine Glucose (UA) NEGATIVE Urine Ketones NEGATIVE Urine Occult Blood NEGATIVE Urine Nitrite NEGATIVE Urine Bilirubin NEGATIVE Urine Urobilinogen 0.2 (NORMAL) Ur Leukocyte Esterase NEGATIVE Ur Microscopic Review NOT INDICATED Urine Culture Comments NOT INDICATED Salicylates Urine Opiates Screen NEGATIVE Ur Oxycodone Screen NEGATIVE Urine Methadone Screen NEGATIVE Ur Propoxyphene Screen NEGATIVE Acetaminophen Ur Barbiturates Screen NEGATIVE Ur Tricyclics Screen NEGATIVE Ur Phencyclidine Scrn NEGATIVE Ur Amphetamine Screen NEGATIVE U Methamphetamines Scrn NEGATIVE U Benzodiazepines Scrn NEGATIVE Urine Cocaine Screen NEGATIVE U Cannabinoids Screen NEGATIVE Ethyl Alcohol SARS-CoV-2 (PCR) NOT DETECTED PD MEDICAL DECISION MAKING - ED course ED course: Patient presenting for medical clearance prior to entering rehab. Denies complaints, initially belligerent with staff, eventually consented to blood work. Patient is medically cleared, COVID-19 test is negative, alcohol is obviously elevated. He was given thiamine and folate in the emergency department. We attempted to reach out to rehab facility where we were told the patient already has a bed, however we were told that in fact the patient does not have a bed and we would need to wait for a bed to become available Departure - Departure Disposition: 65 Psych Hosp/Unit DC/Xfer Clinical Impression: Alcohol intoxication in active alcoholic Condition: Stable Instructions: ED Alcohol Intoxication
[2021-10-30 21:47] LABS: BASOPHILS # (AUTO) 0.1 10^3/uL (0.0-0.1); BASOPHILS % (AUTO) 0.7 %; EOSINOPHILS # (AUTO) 0.1 10^3/uL (0.0-0.7); EOSINOPHILS % (AUTO) 2.1 %; HCT - HEMATOCRIT 43.3 % (42.0-52.0); HGB - HEMOGLOBIN 15.4 g/dL (14.0-18.0); LYMPHOCYTES # (AUTO) 2.9 10^3/uL (1.5-3.5); LYMPHOCYTES % (AUTO) 42.4 %; MEAN CORPUSCULAR HEMOGLOBIN 35.6 pg (27.0-31.0); MEAN CORPUSCULAR HGB CONC 35.6 g/dL (32.0-36.0); MEAN CORPUSCULAR VOLUME 100.2 fL (80.0-94.0); MEAN PLATELET VOLUME 8.8 fL (7.4-11.4); MONOCYTES # (AUTO) 0.5 10^3/uL (0.0-1.0); MONOCYTES % (AUTO) 6.6 %; NEUTROPHILS # (AUTO) 3.3 10^3/uL (1.5-6.6); NEUTROPHILS % (AUTO) 48.1 %; PLT - PLATELET COUNT 214 10^3/uL (130-450); RED BLOOD COUNT 4.32 10^6/uL (4.70-6.10); RED CELL DISTRIBUTION WIDTH 13.5 % (12.0-15.0); WHITE BLOOD COUNT 6.8 x10^3/uL (4.8-10.8)
[2021-10-30 22:00] LABS: ACETAMINOPHEN < 10 ug/mL (10-30); ALBUMIN 4.4 g/dL (3.2-5.5); ALBUMIN/GLOBULIN RATIO 1.1 (1.0-2.2); ALKALINE PHOSPHATASE 58 IU/L (42-121); ALT ALANINE AMINOTRANSFERASE 69 IU/L (10-60); AST ASPARTATE AMINOTRANSFERASE 102 IU/L (10-42); BILIRUBIN,TOTAL 0.4 mg/dL (0.2-1.0); BUN - BLOOD UREA NITROGEN 9 mg/dL (6-20); CALCIUM 9.4 mg/dL (8.5-10.3); CARBON DIOXIDE - CO2 23 mmol/L (21-32); CHLORIDE 101 mmol/L (101-111); CREATININE 0.6 mg/dL (0.6-1.2); ETOH - ETHANOL 325.5 mg/dL; GFR - MDRD 141 (>89); GLUCOSE 100 mg/dL (70-100); POTASSIUM 3.9 mmol/L (3.5-5.0); SALICYLATE < 6.0 mg/dL; SODIUM 139 mmol/L (135-145); TOTAL PROTEIN 8.3 g/dL (6.7-8.2)
[2021-10-30 22:03] LABS: MUDS CUTOFF CONCENTRATIONS CUTOFF CONC BELOW:
[2021-10-30 22:12] LABS: BILIRUBIN,URINE NEGATIVE (NEGATIVE); GLUCOSE, URINE (UA) NEGATIVE (NEGATIVE); KETONES,URINE (UA) NEGATIVE (NEGATIVE); LEUKOCYTE ESTERASE, URINE NEGATIVE (NEGATIVE); NITRITE,URINE NEGATIVE (NEGATIVE); OCCULT BLOOD,URINE NEGATIVE (NEGATIVE); PH,URINE 5.5 PH (5.0-7.5); PROTEIN,URINE NEGATIVE (NEGATIVE); UROBILINOGEN,URINE 0.2 (NORMAL) E.U./dL (NORMAL)
[2021-10-30 22:13] LABS: CLARITY,URINE CLEAR (CLEAR)
[2021-10-30 22:25] LABS: AMPHETAMINE SCREEN,URINE NEGATIVE (NEGATIVE); BARBITURATE SCREEN,UR NEGATIVE (NEGATIVE); BENZODIAZEPINES SCREEN, URINE NEGATIVE (NEGATIVE); COCAINE SCREEN URINE NEGATIVE (NEGATIVE); METHADONE SCREEN, URINE NEGATIVE (NEGATIVE); METHAMPHETAMINES SCREEN, URINE NEGATIVE (NEGATIVE); OPIATE SCREEN, URINE NEGATIVE (NEGATIVE); OXYCODONE SCREEN, URINE NEGATIVE (NEGATIVE); PROPOXYPHENE SCREEN, URINE NEGATIVE (NEGATIVE); THC CANNABINOID SCREEN, URINE NEGATIVE (NEGATIVE); TRICYCLIC ANTIDEPRESSANT,URINE NEGATIVE (NEGATIVE)
[2021-10-30] MEDS ORDERED: FOLIC ACID 1 MG TABLET ONE (23:32)
[2021-10-30] MEDS ORDERED: cloNIDine 0.1 MG TABLET PO STA (23:33)
[2021-10-31] MEDS ORDERED: FOLIC ACID 1 MG TABLET PO SCH ×2 (02:53→09:00)
[2021-10-31 05:52] VITALS: BP 121/70
[2021-10-31] MEDS ORDERED: PHENobarbital 65 MG/ML VIAL IM STA (07:35)
--- NOTE | 2021-10-31 07:41 | ED Physician Documentation ---
ED Addendum - Addendum Addendum: 10/31/21 07:38 Nursing notes and prior physician report state the patient had requested help with alcoholism and wanted detox and called EMS or the crisis line. EMS brought the patient here. Apparently report was from his crisis counselor that there had been a bed available at [facility] but he needed medical clearance. The patient states he had called the crisis line for help with the alcohol. He states earlier this month he had been at [facility] for several days and then [facility] for several days. They had been looking at getting him to [facility] rehab for longer treatment but he did climbed at the time apparently. At this point the patient is a little bit anxious and wanting breakfast but is pleasant and cooperative. He is a little bit hyper mobile but no tremoring or nausea. He states he does get withdrawal symptoms but no seizures in the past. The patient states he would like to go home has no one is there to take care of his cat. He does not want detox or rehab at this point. We can get him medications to help it off withdrawal. Presume we will discharge him here in a little bit after he has finishes his breakfast. Disposition: The patient is discharged home in stable condition. Diagnoses: 1. Chronic alcoholism 2. Alcohol intoxication
[2021-10-31] MEDS ORDERED: LORazepam 1 MG TABLET PO STA (08:35)
== END 2021-10-31 09:01 | disposition home or self-care (01) ==
LOC: EDUNIT# → ED 21:23
DX: F10.129 Alcohol abuse with intoxication, unspecified (principal); I10 Essential (primary) hypertension; F17.200 Nicotine dependence, unspecified, uncomplicated; Z20.822 Contact with and (suspected) exposure to COVID-19
CPT/HCPCS: 36415; 80053; 80306; 80307; 80320; 80329; 81003; 84443; 85025; 87635; 96372; 99281; 99284; A9270; J8499; 81001; 83690; 87086

== ENCOUNTER 2021-10-30 22:30 | Emergency (ER) | payer MEDICAID | END 2021-10-30 22:53 | disposition other institution (70) | LOC: ED 22:30 | DX: Z53.21 Procedure and treatment not carried out due to patient leaving prior to being seen by health care provider (principal) | CPT/HCPCS: 36415; 80053; 80306; 80307; 80320; 80329; 81003; 84443; 85025; 99281; 99284; A9270; 81001; 83690; 87086; 96372 ==

== ENCOUNTER 2022-02-20 09:17 | Outpatient (CLI) | payer MEDICAID ==
[2022-02-20 19:01] LABS: BASOPHILS % (AUTO) 0.5 %; EOSINOPHILS # (AUTO) 0.1 10^3/uL (0.0-0.7); EOSINOPHILS % (AUTO) 1.2 %; HCT - HEMATOCRIT 42.3 % (42.0-52.0); HGB - HEMOGLOBIN 14.2 g/dL (14.0-18.0); LYMPHOCYTES # (AUTO) 1.5 10^3/uL (1.5-3.5); LYMPHOCYTES % (AUTO) 25.3 %; MEAN CORPUSCULAR HEMOGLOBIN 34.3 pg (27.0-31.0); MEAN CORPUSCULAR HGB CONC 33.6 g/dL (32.0-36.0); MEAN CORPUSCULAR VOLUME 102.2 fL (80.0-94.0); MEAN PLATELET VOLUME 11.1 fL (7.4-11.4); MONOCYTES # (AUTO) 0.5 10^3/uL (0.0-1.0); MONOCYTES % (AUTO) 8.2 %; NEUTROPHILS # (AUTO) 3.7 10^3/uL (1.5-6.6); NEUTROPHILS % (AUTO) 64.6 %; PLT - PLATELET COUNT 103 10^3/uL (130-450); RED BLOOD COUNT 4.14 10^6/uL (4.70-6.10); RED CELL DISTRIBUTION WIDTH 14.3 % (12.0-15.0); WHITE BLOOD COUNT 5.7 x10^3/uL (4.8-10.8)
[2022-02-20 19:31] LABS: ALBUMIN/GLOBULIN RATIO 1.1 (1.0-2.2); ALKALINE PHOSPHATASE 82 IU/L (42-121); ALT ALANINE AMINOTRANSFERASE 61 IU/L (10-60); AST ASPARTATE AMINOTRANSFERASE 79 IU/L (10-42); BILIRUBIN,TOTAL 0.5 mg/dL (0.2-1.0); BUN - BLOOD UREA NITROGEN 13 mg/dL (6-20); CALCIUM 8.8 mg/dL (8.5-10.3); CARBON DIOXIDE - CO2 24 mmol/L (21-32); CHLORIDE 100 mmol/L (101-111); CHOL/HDL RATIO 2.4 (<5.0); CHOLESTEROL 139 mg/dL; CREATININE 0.7 mg/dL (0.6-1.2); GFR - MDRD 118 (>89); GLUCOSE 117 mg/dL (70-100); HDL CHOLESTEROL 58 mg/dL; LDL CHOLESTEROL,CALCULATED 35 mg/dL; LDL/HDL RATIO 0.6 (<3.6); POTASSIUM 3.5 mmol/L (3.5-5.0); SODIUM 136 mmol/L (135-145); TOTAL PROTEIN 7.7 g/dL (6.7-8.2); TRIGLYCERIDES 230 mg/dL; VLDL CHOLESTEROL 46 mg/dL
[2022-02-20 19:43] LABS: THYROID STIMULATING HORMONE 1.73 uIU/mL (0.34-5.60)
== END 2022-02-20 09:18 | disposition home or self-care (01) ==
LOC: LAB.N 09:17
PROVIDERS: ATTEND Physician Assistant Medical
DX: E78.5 Hyperlipidemia, unspecified (principal); E53.8 Deficiency of other specified B group vitamins; E03.9 Hypothyroidism, unspecified
CPT/HCPCS: 36415; 80053; 80061; 82607; 83721; 84443; 85025

== ENCOUNTER 2022-05-04 18:08 | Outpatient (CLI) | payer MEDICAID | END 2022-05-04 18:09 | disposition critical access hospital (66) | LOC: EMS 18:08 | DX: S01.01XA Laceration without foreign body of scalp, initial encounter (principal); S40.211A Abrasion of right shoulder, initial encounter; R51.9 Headache, unspecified; M25.511 Pain in right shoulder; W19.XXXA Unspecified fall, initial encounter; Y92.009 Unspecified place in unspecified non-institutional (private) residence as the place of occurrence of the external cause; Z72.89 Other problems related to lifestyle | CPT/HCPCS: A0425; A0429; A0999 ==

== ENCOUNTER 2022-05-04 18:31 | Emergency (ER) | payer MEDICAID ==
--- NOTE | 2022-05-04 18:42 | ED Physician Documentation ---
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 The patient believes that he fell yesterday and has been laying on the floor most of the time until today though at some point this afternoon got up and had a few drinks of alcohol and then got back down on the floor and then this evening called EMS. The patient reports that he hit the back of his head and has a small abrasion on the back of his scalp, and also fell onto the left arm sustaining some bruises and abrasions. He also notes some discomfort to the right knee. He states that he does drink whiskey quite a bit though not every day and has had falls at home related to his alcohol use in the past. He is not on any blood thinners, denies any drug use. To his knowledge, he had no prodromal symptoms prior to the fall such as seizure activity, chest pain or difficulty breathing, fever, nausea or vomiting or other new concerns and he feels well now aside from pain at the site of head abrasion and left forearm pain from fall. Review of Systems Constitutional: reports: Reviewed and negative Eyes: reports: Reviewed and negative Ears: reports: Reviewed and negative Nose: reports: Reviewed and negative Cardiac: reports: Reviewed and negative Respiratory: reports: Reviewed and negative GI: reports: Reviewed and negative : reports: Reviewed and negative Skin: reports: Abrasion (s) Musculoskeletal: reports: Extremity pain Neurologic: reports: Head injury Psychiatric: reports: Reviewed and negative Endocrine: reports: Reviewed and negative PD PAST MEDICAL HISTORY - Past Medical History Past Medical History: Yes Cardiovascular: Hypertension, High cholesterol Respiratory: None Neuro: None, CVA Endocrine/Autoimmune: None GI: None : None HEENT: Chronic vision loss, Other Psych: None Musculoskeletal: Osteoarthritis Derm: None - Past Surgical History Past Surgical History: Yes Ortho: Arthroscopic surgery, Other - Present Medications Home Medications: Ambulatory Orders Medication Instructions Recorded Confirmed Aspirin [Adult Aspirin Regimen] 81 mg PO DAILY #30 tablet. 08/22/19 10/30/21 Atorvastatin Calcium 80 mg PO DAILY PM #30 tablet 08/22/19 10/30/21 gemfibroziL [Lopid] 600 mg PO DAILY #30 tablet 08/23/19 10/30/21 Multivitamin 1 each PO DAILY #30 tablet 11/16/20 10/30/21 Saccharomyces Boulardii [Florastor] 250 mg PO DAILY #6 cap 11/16/20 10/30/21 Thiamine [Vitamin B-1] 100 mg PO DAILY #30 tablet 11/16/20 10/30/21 PHENobarbitaL [Phenobarbital] 30 mg PO BID 6 Days #9 tablet 10/31/21 - Allergies Allergies/Adverse Reactions: Allergies Allergy/AdvReac Type Severity Reaction Status Date / Time Penicillins Allergy Unknown facial Verified 07/10/21 11:37 swelling - Social History Does the pt smoke?: Yes Smoking Status: Current every day smoker Does the pt drink ETOH?: Yes Does the pt have substance abuse?: Yes - Immunizations Immunizations are current?: No - POLST Patient has POLST: No POLST Status: Full Code PD ED PE NORMAL - Vitals Vital signs reviewed: Yes - General General: Alert and oriented X 3, No acute distress, Well developed/nourished - HEENT HEENT: PERRL, EOMI, Moist mucous membranes, Pharynx benign, Other (small abrasion posterior scalp) - Neck Neck: Supple, no meningeal sign, No bony TTP, No JVD - Cardiac Cardiac: RRR, No murmur - Respiratory Respiratory: No respiratory distress, Clear bilaterally - Abdomen Abdomen: Normal bowel sounds, Soft - Back Back: No spinal TTP - Derm Derm: Normal color, Warm and dry, No rash - Extremities Extremities: No deformity, No tenderness to palpate, Normal ROM s pain, No edema, No calf tenderness / cord, Other (scattered bruises left forearm) - Neuro Neuro: Alert and oriented X 3, No motor deficit, No sensory deficit, Normal speech Eye Opening: Spontaneous Motor: Obeys Commands Verbal: Oriented GCS Score: 15 - Psych Psych: Normal mood, Normal affect Results - Vitals Vitals: Vital Signs - 24 hr 05/04/22 05/04/22 05/04/22 18:45 19:13 19:44 Temperature 37.0 C Heart Rate 100 101 H 103 H Respiratory 20 16 16 Rate Blood Pressure 137/100 H 131/90 H O2 Saturation 99 96 97 Oxygen O2 Source Room air - Labs Labs: Laboratory Tests 05/04/22 05/04/22 05/04/22 18:48 18:48 18:48 WBC 6.5 RBC 3.55 L Hgb 13.2 L Hct 36.7 L MCV 103.4 H MCH 37.2 H MCHC 36.0 RDW 14.9 Plt Count 127 L MPV 9.7 Neut # (Auto) 4.6 Lymph # (Auto) 1.3 L [place] # (Auto) 0.5 Eos # (Auto) 0.0 Baso # (Auto) 0.0 Absolute Nucleated RBC 0.00 Nucleated RBC % 0.0 Sodium 131 L Potassium 2.8 L Chloride 92 L Carbon Dioxide 21 Anion Gap 18.0 H BUN 10 Creatinine 0.8 Estimated GFR (MDRD) 101 Glucose 193 H Calcium 8.4 L Magnesium 1.9 Total Bilirubin 1.4 H AST 395 H ALT 140 H Alkaline Phosphatase 136 H Total Creatine Kinase 94 Total Protein 6.7 Albumin 3.6 Globulin 3.1 Albumin/Globulin Ratio 1.2 Lipase 64 H Ethyl Alcohol 333.4 - Rads (name of study) No standard instances Radiology: Final report received PD Medical Decision Making - ED course Complexity details: reviewed old records, reviewed results, re-evaluated patient, considered differential, d/w patient ED course: This is a 52-year-old male who has a history of alcoholism who presents after a fall at home. The patient admits to drinking for the last several days. Is unclear when he fell, he thinks he may been a couple days ago however he has no signs of prolonged immobilization on physical exam. His CK is normal. We obtained labs which elevation in LFTs which are anticipated given his heavy recent alcohol use, his potassium is 2.8, labs otherwise stable compared to prior labs which were reviewed. He does not have any right upper quadrant abdominal pain or other abdominal pain or n/v to suggest acute Hepatobiliary infection despite elevated lfts therefore can follow up outpt. . On physical exam, he does have an abrasion to the back of the head however CT is negative, he has no neck pain. He has some mild bruises to the left arm, no lacerations or deformities. He was given a banana bag as well as oral potassium and is tolerating p.o. There was alcohol level 333, the patient is awake alert and ambulatory. He will be discharged home once clinically sober and after electrolyte and banana bag infusions.Patient strongly encouraged to stop drinking alcohol or at minimum cut down as it is likely a result of his recurrent falls. Departure - Departure Clinical Impression: Alcohol abuse, Hypokalemia Closed head injury Qualifiers: Encounter type: initial encounter Qualified Code(s): S09.90XA - Unspecified injury of head, initial encounter Condition: Good Instructions: Hypokalemia Dc, ED Head Injury Closed
[2022-05-04 18:53] LABS: BASOPHILS % (AUTO) 0.6 %; EOSINOPHILS % (AUTO) 0.2 %; HCT - HEMATOCRIT 36.7 % (42.0-52.0); HGB - HEMOGLOBIN 13.2 g/dL (14.0-18.0); LYMPHOCYTES # (AUTO) 1.3 10^3/uL (1.5-3.5); LYMPHOCYTES % (AUTO) 20.7 %; MEAN CORPUSCULAR HEMOGLOBIN 37.2 pg (27.0-31.0); MEAN CORPUSCULAR VOLUME 103.4 fL (80.0-94.0); MEAN PLATELET VOLUME 9.7 fL (7.4-11.4); MONOCYTES # (AUTO) 0.5 10^3/uL (0.0-1.0); MONOCYTES % (AUTO) 7.4 %; NEUTROPHILS # (AUTO) 4.6 10^3/uL (1.5-6.6); NEUTROPHILS % (AUTO) 70.8 %; PLT - PLATELET COUNT 127 10^3/uL (130-450); RED BLOOD COUNT 3.55 10^6/uL (4.70-6.10); RED CELL DISTRIBUTION WIDTH 14.9 % (12.0-15.0); WHITE BLOOD COUNT 6.5 x10^3/uL (4.8-10.8)
[2022-05-04 19:11] LABS: ALBUMIN 3.6 g/dL (3.2-5.5); ALBUMIN/GLOBULIN RATIO 1.2 (1.0-2.2); BILIRUBIN,TOTAL 1.4 mg/dL (0.2-1.0); CALCIUM 8.4 mg/dL (8.5-10.3); CREATININE 0.8 mg/dL (0.6-1.2); ETOH - ETHANOL 333.4 mg/dL; POTASSIUM 2.8 mmol/L (3.5-5.0); TOTAL PROTEIN 6.7 g/dL (6.7-8.2)
[2022-05-04] MEDS ORDERED: POTASSIUM CHLOR 10 MEQ/100 ML 10 MEQ/100 ML BAG IV STA (19:12)
[2022-05-04] MEDS ORDERED: THIAMINE INJ 100 MG, MAGNESIUM SULFATE 2 GM, MULTIVITAMIN 10 ML, FOLIC ACID INJ 1 MG in... IV ONE ×5 (19:13)
[2022-05-04] MEDS ORDERED: POTASSIUM CHLORIDE 20 MEQ TABLET PO STA (19:13)
--- NOTE | 2022-05-04 19:28 | CT Report ---
PROCEDURE: HEAD WO INDICATIONS: fell, intoxicated TECHNIQUE: Noncontrast 4.5 mm thick angled axial sections acquired from the foramen magnum to the vertex. For r adiation dose reduction, the following was used: automated exposure control, adjustment of mA and/or kV according to patient size. COMPARISON: CT at [facility], 06/05/2021. FINDINGS: Image quality: Excellent. CSF spaces: Basal cisterns are patent. No extra-axial fluid collections. Ventricles are normal in size and shape. Brain: No midline shift. No intracranial masses or hemorrhage. Mild cerebral volume loss and perive ntricular white matter chronic small vessel treatment changes are present. Skull and face: Calvarium and visualized facial bones are intact, without suspicious lesions. Sinuses: Visualized sinuses and mastoids are clear. IMPRESSION: No acute intracranial abnormality. Reviewed by: Lisa De Dios MD on 05/04/2022 7:26 PM PST Approved by: Lisa De Dios MD on 05/04/2022 7:26 PM PST Station ID: [id number]
[2022-05-04] MEDS ORDERED: THIAMINE 100 MG/1 ML 2 ML MDV ONE (19:49)
[2022-05-04] MEDS ORDERED: FOLIC ACID 5 MG/1 ML 10ML MDV ONE (19:49)
[2022-05-04] MEDS ORDERED: MAGNESIUM SULFATE 1 GM/2 ML VIAL ONE (19:49)
[2022-05-04] MEDS ORDERED: MULTIVITAMIN IV 10 ML VIAL ONE (19:49)
[2022-05-04 21:03] VITALS: BP 135/90
== END 2022-05-04 21:29 | disposition home or self-care (01) ==
LOC: EDUNIT# → ED 18:31
DX: S09.90XA Unspecified injury of head, initial encounter (principal); W19.XXXA Unspecified fall, initial encounter; E87.6 Hypokalemia; F10.10 Alcohol abuse, uncomplicated; I10 Essential (primary) hypertension; Y90.8 Blood alcohol level of 240 mg/100 ml or more; Z91.81 History of falling
CPT/HCPCS: 36415; 70450; 80053; 80320; 82550; 83690; 83735; 85025; 96365; 96368; 99284; A9270; J3411

== ENCOUNTER 2022-06-06 15:18 | Outpatient (CLI) | payer MEDICAID | END 2022-06-06 15:19 | disposition E | LOC: EMS 15:18 ==